=== PATIENT | female | born 1945 | race Caucasian/White ===

== ENCOUNTER 2017-09-25 05:46 | Observation (INO) ==
[2017-09-25] MEDS ORDERED: diphenhydrAMINE CAP 25 MG CAPSULE PO ONE (06:00)
[2017-09-25] MEDS ORDERED: ASPIRIN 325 MG TABLET PO ONE (06:00)
[2017-09-25] MEDS ORDERED: MAGNESIUM SULF RIDER 2 GM in PREMIX 1 EACH IV PRN ×2 (06:00→09:00)
[2017-09-25] MEDS ORDERED: DIAZEPAM 5 MG TABLET PO ONE (06:00)
[2017-09-25] MEDS ORDERED: POTASSIUM CHLORIDE RIDER 10 MEQ in PREMIX 1 EACH IV PRN (06:00)
[2017-09-25] MEDS ORDERED: diphenhydrAMINE CAP 25 MG CAPSULE ONE (06:56)
[2017-09-25] MEDS ORDERED: DIAZEPAM 5 MG TABLET ONE (06:56)
[2017-09-25] MEDS: SODIUM CHLORIDE 0.9% 1,000 ML IV SCH ×2 (06:59→12:49)
[2017-09-25] MEDS ORDERED: LIDOCAINE 1% 20 ML VIAL ONE (07:25)
[2017-09-25] MEDS ORDERED: MIDAZOLAM 2 MG/2 ML VIAL ONE (07:26)
[2017-09-25] MEDS ORDERED: MEPERIDINE 25 MG/1 ML VIAL ONE (07:26)
[2017-09-25] MEDS ORDERED: HEPARIN 5,000 UNIT/1 ML VIAL ONE (07:57)
[2017-09-25] MEDS ORDERED: DEXTROSE 50% 25 GM/50 ML VIAL IV PRN (09:00)
[2017-09-25] MEDS ORDERED: GLUCAGON 1 MG VIAL IM PRN (09:00)
[2017-09-25] MEDS ORDERED: ACETAMINOPHEN 325 MG TABLET PO PRN (09:00)
[2017-09-25] MEDS ORDERED: MAGNESIUM SULF RIDER 4 GM in PREMIX 1 EACH IV PRN (09:00)
[2017-09-25] MEDS ORDERED: ZALEPLON 5 MG CAPSULE PO PRN (09:00)
[2017-09-25] MEDS ORDERED: ACETAMINOPHEN/CODEINE 300-30 MG TABLET PO PRN (09:00)
[2017-09-25] MEDS ORDERED: SODIUM CHLORIDE 0.9% 1,000 ML IV PRN (09:26)
[2017-09-25] MEDS ORDERED: ONDANSETRON 4 MG/2 ML VIAL IV PRN (10:12)
[2017-09-25] MEDS ORDERED: guaiFENesin/DM ER 600-30 MG TABLET PO PRN (10:12)
[2017-09-25] MEDS ORDERED: BISACODYL 5 MG TABLET PO PRN (10:12)
[2017-09-25] MEDS ORDERED: diphenhydrAMINE CAP 25 MG CAPSULE PO PRN (10:12)
[2017-09-25] MEDS: INSULIN REGULAR 100 UNIT/ML SUBCUT SCH ×3 (12:50→20:20)
[2017-09-25] MEDS: MAGNESIUM CHLORIDE 64 MG TABLET PO SCH ×2 (15:34→20:19)
[2017-09-25] MEDS: CARVEDILOL 3.125 MG TABLET PO SCH (20:19)
[2017-09-25] MEDS: OMEGA 3 ACID ETHYL ESTERS 1 GM CAPSULE PO SCH (20:19)
[2017-09-25] MEDS: FAMOTIDINE 20 MG TABLET PO SCH (20:19)
[2017-09-25] MEDS ORDERED: traZODone 50 MG TABLET PO SCH (21:00)
[2017-09-26 07:12] LABS: Basophils # 0.1 10*3/uL (0.0-0.2); Basophils % 0.5 % (0.0-0.8); Eosinophils # 0.2 10*3/uL (0.0-0.87); Eosinophils % 1.9 % (0.00-10.9); Hematocrit 30.9 VOL% (35.7-47.0); Immature Granulocytes % 0.7 %; Immature Granulocytes Absolute 0.06 #; Lymphocytes # 1.3 10*3/uL (1.4-4.0); Lymphocytes % 14.6 % (21.3-54.2); Mean Corpuscular HGB Conc 32.4 GM/DL (32-36); Mean Corpuscular Hemoglobin 28 PG (27-34); Mean Corpuscular Volume 86.3 FL (87-102); Mean Platelet Volume 10.1 FL (9.6-12.0); Monocytes # 1.2 10*3/uL (0.11-0.8); Monocytes % 13.4 % (1.7-12.7); Neutrophils # 6.3 10*3/uL (1.4-7.4); Neutrophils % 68.9 % (38.7-73.9); Platelet Count 231 T/CUMM (130-400); Red Blood Count 3.58 MC/CUMM (3.8-5.5); White Blood Count 9.2 T/CUMM (4-12)
[2017-09-26 08:01] LABS: Alanine Aminotransferase 21 U/L (13-56); Albumin 3.4 G/DL (3.4-5.0); Alkaline Phosphatase 66 U/L (45-117); Aspartate Amino Transferase 18 U/L (0-37); Bilirubin,Total < 0.39 MG/DL (0.2-1.0); Blood Urea Nitrogen 26 MG/DL (7-18); Calcium 8.2 MG/DL (8.5-10.1); Glucose 167 MG/DL (74-106); Osmolality,Calculated 289.3 MOS/KG (273-304); Potassium 4.6 MMOL/L (3.5-5.1); Sodium 141 MMOL/L (136-145)
[2017-09-26] MEDS ORDERED: PANTOPRAZOLE 40 MG TABLET PO SCH (09:00)
[2017-09-26] MEDS ORDERED: SPIRONOLACTONE 25 MG TABLET PO SCH (09:00)
[2017-09-26] MEDS ORDERED: ASPIRIN EC 81 MG TABLET PO SCH (09:00)
[2017-09-26] MEDS ORDERED: GABAPENTIN 600 MG TABLET PO SCH (09:00)
[2017-09-26] MEDS ORDERED: AMIODARONE 200 MG TABLET PO SCH (09:00)
[2017-09-26] MEDS: INSULIN REGULAR 100 UNIT/ML SUBCUT SCH (09:08)
[2017-09-26] MEDS: CARVEDILOL 3.125 MG TABLET PO SCH (09:13)
[2017-09-26] MEDS: MAGNESIUM CHLORIDE 64 MG TABLET PO SCH (09:13)
[2017-09-26] MEDS: FAMOTIDINE 20 MG TABLET PO SCH (09:13)
[2017-09-26] MEDS: OMEGA 3 ACID ETHYL ESTERS 1 GM CAPSULE PO SCH (09:13)
[2017-09-26 12:23] VITALS: BP 185/79
[2017-09-27] MEDS ORDERED: PITAVASTATIN 2 MG TABLET PO SCH (09:00)
[2017-09-27] MEDS ORDERED: FERROUS SULFATE 325 MG TABLET PO SCH (09:00)
== END 2017-09-26 12:00 | disposition home or self-care (01) ==
LOC: N.CL 05:46 → N.4E 05:46 → N.CL 05:56 → N.4E 09:24
PROVIDERS: ADMIT Internal Medicine Cardiovascular Disease; ATTEND Internal Medicine Cardiovascular Disease

== ENCOUNTER 2018-11-23 09:11 | Observation (INO) ==
[2018-11-23] MEDS ORDERED: OXYMETAZOLINE 0.05% NASAL SPRAY 15 ML BOTTLE BOTH NARES STA (09:41)
[2018-11-23] MEDS ORDERED: SILVER NITRATE STICK 1 EACH TOP ONE (10:19)
[2018-11-23] MEDS ORDERED: LIDOCAINE 1%/EPI INJ 20 ML VIAL ONE (10:23)
[2018-11-23 10:36] LABS: Basophils % 0.6 % (0.0-0.8); Eosinophils # 0.1 10*3/uL (0.0-0.87); Eosinophils % 1.6 % (0.00-10.9); Hematocrit 27.6 VOL% (35.7-47.0); Hemoglobin 8.7 GM/DL (12.0-16.0); Immature Granulocytes % 0.7 %; Immature Granulocytes Absolute 0.05 #; Mean Corpuscular HGB Conc 31.5 GM/DL (32-36); Mean Corpuscular Hemoglobin 29 PG (27-34); Mean Corpuscular Volume 90.5 FL (87-102); Mean Platelet Volume 10.1 FL (9.6-12.0); Monocytes # 0.8 10*3/uL (0.11-0.8); Neutrophils % 72.1 % (38.7-73.9); Platelet Count 181 T/CUMM (130-400); Red Blood Count 3.05 MC/CUMM (3.8-5.5); Red Cell Distribution Width 13.8 % (9.3-17.3); White Blood Count 6.9 T/CUMM (4-12)
[2018-11-23 10:50] LABS: INR 0.9; Partial Thromboplastin Time 24.7 SECS (0-40)
[2018-11-23] MEDS ORDERED: SODIUM CHLORIDE 0.9% 1,000 ML IV PRN (12:31)
[2018-11-23] MEDS ORDERED: FUROSEMIDE 40 MG TABLET PO SCH (21:00)
[2018-11-23] MEDS ORDERED: traZODone 50 MG TABLET PO SCH (21:00)
[2018-11-23] MEDS ORDERED: TERAZOSIN 5 MG CAPSULE PO SCH (21:00)
[2018-11-23] MEDS: MAGNESIUM CHLORIDE 64 MG TABLET PO SCH (21:01)
[2018-11-23] MEDS: OMEGA 3 ACID ETHYL ESTERS 1 GM CAPSULE PO SCH (21:01)
[2018-11-23] MEDS: FAMOTIDINE 20 MG TABLET PO SCH (21:01)
[2018-11-23] MEDS: CARVEDILOL 3.125 MG TABLET PO SCH (21:01)
[2018-11-23] MEDS: SPIRONOLACTONE 25 MG TABLET PO SCH (21:02)
[2018-11-24 05:12] LABS: Basophils % 0.4 % (0.0-0.8); Eosinophils # 0.1 10*3/uL (0.0-0.87); Eosinophils % 1.1 % (0.00-10.9); Hematocrit 27.7 VOL% (35.7-47.0); Hemoglobin 8.8 GM/DL (12.0-16.0); Immature Granulocytes % 0.6 %; Immature Granulocytes Absolute 0.04 #; Lymphocytes # 0.8 10*3/uL (1.4-4.0); Lymphocytes % 11.8 % (21.3-54.2); Mean Corpuscular HGB Conc 31.8 GM/DL (32-36); Mean Corpuscular Hemoglobin 28 PG (27-34); Mean Corpuscular Volume 89.4 FL (87-102); Mean Platelet Volume 10.1 FL (9.6-12.0); Monocytes % 14.1 % (1.7-12.7); Neutrophils # 5.1 10*3/uL (1.4-7.4); Platelet Count 153 T/CUMM (130-400); Red Cell Distribution Width 14.9 % (9.3-17.3)
[2018-11-24 05:29] LABS: Calcium 8.3 MG/DL (8.5-10.1); Osmolality,Calculated 279.8 MOS/KG (273-304); Potassium 3.9 MMOL/L (3.5-5.1)
[2018-11-24 05:35] LABS: % Iron Saturation 16.8 % (18-50); Calcium 8.4 MG/DL (8.5-10.1); Ferritin 27.5 ng/ml (8-252); Osmolality,Calculated 281.7 MOS/KG (273-304); Potassium 3.9 MMOL/L (3.5-5.1)
[2018-11-24 05:52] LABS: Folate 15.7 NG/ML (5.4-24.0); Vitamin B12 403 PG/ML (211-911)
[2018-11-24 05:55] LABS: Platelet Estimate Adequate
[2018-11-24 05:56] LABS: Polychromasia Few
[2018-11-24] MEDS ORDERED: LEVOTHYROXINE 50 MCG TABLET PO SCH (07:00)
[2018-11-24 07:09] LABS: Sedimentation Rate-Westergren 66 MM/HR (0-30)
[2018-11-24] MEDS ORDERED: AMIODARONE 200 MG TABLET PO SCH (09:00)
[2018-11-24] MEDS ORDERED: FUROSEMIDE 40 MG TABLET PO SCH (09:00)
[2018-11-24] MEDS ORDERED: PANTOPRAZOLE 40 MG TABLET PO SCH (09:00)
[2018-11-24] MEDS ORDERED: GABAPENTIN 300 MG CAPSULE PO SCH (09:00)
[2018-11-24] MEDS ORDERED: sitaGLIPtin 100 MG TABLET PO SCH (09:00)
[2018-11-24] MEDS ORDERED: metOLazone 5 MG TABLET PO SCH (09:00)
[2018-11-24] MEDS ORDERED: FERROUS SULFATE 325 MG TABLET PO SCH ×2 (09:00→21:00)
[2018-11-24] MEDS: MAGNESIUM CHLORIDE 64 MG TABLET PO SCH (09:58)
[2018-11-24] MEDS: OMEGA 3 ACID ETHYL ESTERS 1 GM CAPSULE PO SCH (09:58)
[2018-11-24] MEDS: SPIRONOLACTONE 25 MG TABLET PO SCH (09:59)
[2018-11-24] MEDS: FAMOTIDINE 20 MG TABLET PO SCH (09:59)
[2018-11-24] MEDS: CARVEDILOL 3.125 MG TABLET PO SCH (09:59)
[2018-11-24] MEDS ORDERED: MUPIROCIN 2% OINT 22 GM TUBE TOP SCH (10:00)
[2018-11-24 12:48] VITALS: BP 116/67
[2018-11-25] MEDS ORDERED: PITAVASTATIN 2 MG TABLET PO SCH (09:00)
[2018-11-26 09:58] LABS: Hemoglobin A1 (Alkaline) 97.2 % (96.5-98.5); Hemoglobin A2 (Alkaline) 2.8 % (1.5-3.5)
== END 2018-11-24 12:19 | disposition home or self-care (01) ==
LOC: N.ED 09:11 → N.EDINP 09:11 → N.4E 15:50
PROVIDERS: ADMIT Hospitalist; ATTEND Hospitalist

== ENCOUNTER 2019-03-21 07:41 | Inpatient (IN) ==
[2019-03-21] MEDS ORDERED: FUROSEMIDE 100 MG/10 ML VIAL IV STA (07:59)
[2019-03-21 08:44] LABS: ABG Base Excess 6.6 MMOL/L (-2.5-2.5); ABG HCO3 30.4 MMOL/L (20-26); ABG Oxygen Saturation 97.3 % (95-100); ABG PCO2 40.1 MM HG (35-48); ABG PH 7.497 (7.35-7.45); ABG TCO2 31.6 MMOL/L (23-27)
[2019-03-21 08:52] LABS: Basophils % 0.3 % (0.0-0.8); Eosinophils # 0.1 10*3/uL (0.0-0.87); Eosinophils % 0.8 % (0.00-10.9); Hematocrit 23.9 VOL% (35.7-47.0); Immature Granulocytes Absolute 0.06 #; Lymphocytes # 0.8 10*3/uL (1.4-4.0); Lymphocytes % 12.7 % (21.3-54.2); Mean Corpuscular HGB Conc 33.5 GM/DL (32-36); Mean Platelet Volume 10.4 FL (9.6-12.0); Monocytes % 13.2 % (1.7-12.7); Platelet Count 181 T/CUMM (130-400); Red Blood Count 2.44 MC/CUMM (3.8-5.5); Red Cell Distribution Width 15.6 % (9.3-17.3); White Blood Count 6.1 T/CUMM (4-12)
[2019-03-21 09:00] LABS: Apearance,Urine CLEAR (Clear); Bacteria,Urine Occasional /HPF (Few); Bilirubin,Urine Negative (Negative); Blood, Urine Negative (Negative); Glucose,Urine (UA) Negative (Negative); Hyaline Casts,Urine 5 /LPF (0-3); Ketones,Urine Negative (Negative); Nitrite,Urine Negative (Negative); Protein,Urine Negative; RBC,Urine 2 /HPF (0-4); Squamous Epithelial Cell,Urine Occasional /HPF (0-10); Urine Color Colorless (Yellow); Urine Specific Gravity 1.004 (1.001-1.035); Urine Urobilinogen < 2.0 EU/DL (0.2-1.0); WBC,Urine 3 /HPF (0-6)
[2019-03-21 09:12] LABS: Albumin 3.7 G/DL (3.4-5.0); Bilirubin,Total 0.5 MG/DL (0.2-1.0); Calcium 7.9 MG/DL (8.5-10.1); Osmolality,Calculated 264.8 MOS/KG (273-304); Total Protein 6.7 G/DL (6.4-8.3)
[2019-03-21 10:51] LABS: % Iron Saturation 17.1 % (18-50); Ferritin 401.5 ng/ml (8-252)
[2019-03-21] MEDS ORDERED: ACETAMINOPHEN 325 MG TABLET PO PRN (11:26)
[2019-03-21] MEDS ORDERED: ONDANSETRON 4 MG/2 ML VIAL IV PRN (11:26)
[2019-03-21 13:53] LABS: Folate 15.2 NG/ML (5.4-24.0)
[2019-03-21] MEDS: MAGNESIUM CHLORIDE 64 MG TABLET PO SCH ×2 (15:22→21:50)
[2019-03-21] MEDS: FUROSEMIDE 40 MG/4 ML VIAL IV SCH (15:55)
[2019-03-21] MEDS: GABAPENTIN 300 MG CAPSULE PO SCH (21:49)
[2019-03-21] MEDS: OMEGA 3 ACID ETHYL ESTERS 1 GM CAPSULE PO SCH (21:49)
[2019-03-21] MEDS: MONTELUKAST 10 MG TABLET PO SCH (21:50)
[2019-03-21] MEDS: SPIRONOLACTONE 25 MG TABLET PO SCH (21:50)
[2019-03-21] MEDS: traZODone 50 MG TABLET PO SCH (21:50)
[2019-03-21] MEDS: CARVEDILOL 3.125 MG TABLET PO SCH ×2 (21:52→21:57)
[2019-03-21] MEDS: TERAZOSIN 5 MG CAPSULE PO SCH ×2 (21:52→21:56)
[2019-03-22 05:01] LABS: Basophils % 0.4 % (0.0-0.8); Eosinophils # 0.1 10*3/uL (0.0-0.87); Eosinophils % 1.8 % (0.00-10.9); Hemoglobin 7.1 GM/DL (12.0-16.0); Immature Granulocytes % 0.5 %; Immature Granulocytes Absolute 0.03 #; Mean Corpuscular HGB Conc 33.8 GM/DL (32-36); Mean Corpuscular Volume 97.7 FL (87-102); Mean Platelet Volume 10.4 FL (9.6-12.0); Monocytes % 15.6 % (1.7-12.7); Neutrophils % 64.7 % (38.7-73.9); Platelet Count 160 T/CUMM (130-400); Red Blood Count 2.15 MC/CUMM (3.8-5.5); Red Cell Distribution Width 15.5 % (9.3-17.3); White Blood Count 5.7 T/CUMM (4-12)
[2019-03-22 05:21] LABS: Calcium 7.8 MG/DL (8.5-10.1); Osmolality,Calculated 261.6 MOS/KG (273-304)
[2019-03-22 05:22] LABS: Hypochromasia 1+; Lymphocytes 20 % (20-55); Platelet Estimate Adequate; Segmented Neutrophils 68 % (50-85); Total Cells Counted 100
[2019-03-22] MEDS: LEVOTHYROXINE 50 MCG TABLET PO SCH (06:12)
[2019-03-22] MEDS: FERROUS SULFATE 325 MG TABLET PO SCH ×2 (06:12→11:54)
[2019-03-22] MEDS ORDERED: DEXTROSE 50% 25 GM/50 ML SYRINGE IV PRN (09:22)
[2019-03-22] MEDS ORDERED: GLUCAGON 1 MG VIAL IM PRN (09:22)
[2019-03-22] MEDS: CARVEDILOL 3.125 MG TABLET PO SCH ×2 (09:32→21:44)
[2019-03-22] MEDS: OMEGA 3 ACID ETHYL ESTERS 1 GM CAPSULE PO SCH ×2 (09:32→21:46)
[2019-03-22] MEDS: AMIODARONE 200 MG TABLET PO SCH (09:32)
[2019-03-22] MEDS: MAGNESIUM CHLORIDE 64 MG TABLET PO SCH ×3 (09:32→21:49)
[2019-03-22] MEDS: PANTOPRAZOLE 40 MG TABLET PO SCH ×2 (09:33→09:34)
[2019-03-22] MEDS: FUROSEMIDE 40 MG/4 ML VIAL IV SCH ×2 (09:33→16:24)
[2019-03-22] MEDS: SPIRONOLACTONE 25 MG TABLET PO SCH ×2 (09:33→21:44)
[2019-03-22] MEDS: ASPIRIN EC 81 MG TABLET PO SCH (09:33)
[2019-03-22] MEDS: metOLazone 2.5 MG TABLET PO SCH (09:33)
[2019-03-22] MEDS ORDERED: SODIUM CHLORIDE 0.9% 1,000 ML IV PRN (09:51)
[2019-03-22] MEDS ORDERED: FUROSEMIDE 40 MG/4 ML VIAL IV ONE (09:53)
[2019-03-22] MEDS: INSULIN REGULAR 100 UNIT/ML SUBCUT SCH ×3 (11:54→21:45)
[2019-03-22] MEDS ORDERED: POTASSIUM CHLORIDE 20 MEQ TABLET PO ONE (14:27)
[2019-03-22] MEDS: traZODone 50 MG TABLET PO SCH (21:45)
[2019-03-22] MEDS: TERAZOSIN 5 MG CAPSULE PO SCH (21:46)
[2019-03-22] MEDS: MONTELUKAST 10 MG TABLET PO SCH (21:47)
[2019-03-22] MEDS: GABAPENTIN 300 MG CAPSULE PO SCH (21:47)
[2019-03-22] MEDS: MAGNESIUM HYDROXIDE SUSP 30 ML UDCUP PO PRN (21:48)
[2019-03-23] MEDS: LEVOTHYROXINE 50 MCG TABLET PO SCH (06:25)
[2019-03-23] MEDS: FERROUS SULFATE 325 MG TABLET PO SCH ×2 (06:25→12:02)
[2019-03-23] MEDS: PITAVASTATIN 2 MG TABLET PO SCH (06:25)
[2019-03-23 08:18] LABS: Basophils % 0.7 % (0.0-0.8); Eosinophils # 0.1 10*3/uL (0.0-0.87); Eosinophils % 1.6 % (0.00-10.9); Immature Granulocytes % 0.7 %; Immature Granulocytes Absolute 0.04 #; Lymphocytes # 0.7 10*3/uL (1.4-4.0); Lymphocytes % 12.2 % (21.3-54.2); Mean Corpuscular HGB Conc 33.5 GM/DL (32-36); Mean Corpuscular Volume 97.7 FL (87-102); Monocytes % 13.3 % (1.7-12.7); Neutrophils % 71.5 % (38.7-73.9); Platelet Count 182 T/CUMM (130-400); Red Cell Distribution Width 16.2 % (9.3-17.3); White Blood Count 6.1 T/CUMM (4-12)
[2019-03-23 08:20] LABS: Red Blood Count 2.66 MC/CUMM (3.8-5.5)
[2019-03-23 08:21] LABS: Hemoglobin 8.7 GM/DL (12.0-16.0)
[2019-03-23] MEDS: INSULIN REGULAR 100 UNIT/ML SUBCUT SCH ×4 (09:05→20:40)
[2019-03-23] MEDS: MAGNESIUM CHLORIDE 64 MG TABLET PO SCH ×3 (09:06→20:39)
[2019-03-23] MEDS: POTASSIUM CHLORIDE 20 MEQ TABLET PO SCH (09:06)
[2019-03-23] MEDS: AMIODARONE 200 MG TABLET PO SCH (09:06)
[2019-03-23] MEDS: OMEGA 3 ACID ETHYL ESTERS 1 GM CAPSULE PO SCH ×2 (09:06→20:39)
[2019-03-23] MEDS: metOLazone 2.5 MG TABLET PO SCH (09:07)
[2019-03-23] MEDS: PANTOPRAZOLE 40 MG TABLET PO SCH ×2 (09:07→09:11)
[2019-03-23] MEDS: ASPIRIN EC 81 MG TABLET PO SCH (09:07)
[2019-03-23] MEDS: CARVEDILOL 3.125 MG TABLET PO SCH ×2 (09:07→20:39)
[2019-03-23] MEDS: FUROSEMIDE 40 MG/4 ML VIAL IV SCH ×3 (09:07→17:18)
[2019-03-23] MEDS: SPIRONOLACTONE 25 MG TABLET PO SCH (09:08)
[2019-03-23] MEDS ORDERED: SODIUM CHLORIDE 0.9% 1,000 ML IV PRN (11:23)
[2019-03-23] MEDS ORDERED: POTASSIUM CHLORIDE 20 MEQ TABLET PO ONE (11:42)
[2019-03-23] MEDS: GABAPENTIN 300 MG CAPSULE PO SCH (20:39)
[2019-03-23] MEDS: TERAZOSIN 5 MG CAPSULE PO SCH (20:39)
[2019-03-23] MEDS: MONTELUKAST 10 MG TABLET PO SCH (20:40)
[2019-03-23] MEDS: MAGNESIUM HYDROXIDE SUSP 30 ML UDCUP PO PRN (20:40)
[2019-03-23] MEDS: traZODone 50 MG TABLET PO SCH (20:40)
[2019-03-24 02:45] LABS: Basophils % 0.5 % (0.0-0.8); Eosinophils # 0.1 10*3/uL (0.0-0.87); Hematocrit 27.3 VOL% (35.7-47.0); Hemoglobin 9.2 GM/DL (12.0-16.0); Immature Granulocytes % 0.5 %; Immature Granulocytes Absolute 0.03 #; Lymphocytes # 1.2 10*3/uL (1.4-4.0); Lymphocytes % 17.6 % (21.3-54.2); Mean Corpuscular HGB Conc 33.7 GM/DL (32-36); Mean Corpuscular Volume 95.5 FL (87-102); Mean Platelet Volume 10.1 FL (9.6-12.0); Monocytes % 15.8 % (1.7-12.7); Neutrophils % 63.6 % (38.7-73.9); Platelet Count 178 T/CUMM (130-400); Red Blood Count 2.86 MC/CUMM (3.8-5.5); Red Cell Distribution Width 17.2 % (9.3-17.3); White Blood Count 6.6 T/CUMM (4-12)
[2019-03-24 04:42] LABS: Anisocytosis 1+; Band Neutrophils 1 % (0-10); Eosinophils 6 % (0-10); Lymphocytes 19 % (20-55); Macrocytosis 1+; Platelet Estimate Normal; Reactive Lymphocytes Few; Segmented Neutrophils 61 % (50-85); Total Cells Counted 100
[2019-03-24] MEDS: LEVOTHYROXINE 50 MCG TABLET PO SCH (06:12)
[2019-03-24] MEDS: FERROUS SULFATE 325 MG TABLET PO SCH ×2 (06:12→11:43)
[2019-03-24 07:55] LABS: Calcium 7.9 MG/DL (8.5-10.1); Osmolality,Calculated 264.2 MOS/KG (273-304)
[2019-03-24] MEDS: INSULIN REGULAR 100 UNIT/ML SUBCUT SCH ×4 (08:53→20:39)
[2019-03-24] MEDS: SPIRONOLACTONE 25 MG TABLET PO SCH (08:58)
[2019-03-24] MEDS: FUROSEMIDE 40 MG/4 ML VIAL IV SCH ×2 (08:58→16:05)
[2019-03-24] MEDS: OMEGA 3 ACID ETHYL ESTERS 1 GM CAPSULE PO SCH ×2 (08:59→20:39)
[2019-03-24] MEDS: PANTOPRAZOLE 40 MG TABLET PO SCH ×2 (08:59→09:00)
[2019-03-24] MEDS: CARVEDILOL 3.125 MG TABLET PO SCH ×2 (08:59→20:38)
[2019-03-24] MEDS: POTASSIUM CHLORIDE 20 MEQ TABLET PO SCH (08:59)
[2019-03-24] MEDS: ASPIRIN EC 81 MG TABLET PO SCH (08:59)
[2019-03-24] MEDS: MAGNESIUM CHLORIDE 64 MG TABLET PO SCH ×3 (09:02→20:39)
[2019-03-24] MEDS: AMIODARONE 200 MG TABLET PO SCH (09:03)
[2019-03-24] MEDS: metOLazone 2.5 MG TABLET PO SCH (09:03)
[2019-03-24] MEDS: TERAZOSIN 5 MG CAPSULE PO SCH (20:39)
[2019-03-24] MEDS: GABAPENTIN 300 MG CAPSULE PO SCH (20:39)
[2019-03-24] MEDS: traZODone 50 MG TABLET PO SCH (20:39)
[2019-03-24] MEDS: MONTELUKAST 10 MG TABLET PO SCH (20:39)
[2019-03-25 05:23] LABS: Basophils % 0.7 % (0.0-0.8); Eosinophils # 0.1 10*3/uL (0.0-0.87); Eosinophils % 2.1 % (0.00-10.9); Hematocrit 28.9 VOL% (35.7-47.0); Hemoglobin 9.3 GM/DL (12.0-16.0); Immature Granulocytes % 0.5 %; Immature Granulocytes Absolute 0.03 #; Lymphocytes # 1.1 10*3/uL (1.4-4.0); Lymphocytes % 19.3 % (21.3-54.2); Mean Corpuscular HGB Conc 32.2 GM/DL (32-36); Mean Platelet Volume 10.1 FL (9.6-12.0); Monocytes % 13.5 % (1.7-12.7); Neutrophils % 63.9 % (38.7-73.9); Platelet Count 183 T/CUMM (130-400); Red Blood Count 2.92 MC/CUMM (3.8-5.5); Red Cell Distribution Width 16.5 % (9.3-17.3); White Blood Count 5.8 T/CUMM (4-12)
[2019-03-25] MEDS: PITAVASTATIN 2 MG TABLET PO SCH (05:24)
[2019-03-25] MEDS: FERROUS SULFATE 325 MG TABLET PO SCH (05:24)
[2019-03-25] MEDS: LEVOTHYROXINE 50 MCG TABLET PO SCH (05:24)
[2019-03-25 05:39] LABS: Calcium 8.3 MG/DL (8.5-10.1); Osmolality,Calculated 270.8 MOS/KG (273-304)
[2019-03-25 07:56] VITALS: BP 149/51
[2019-03-25] MEDS: POTASSIUM CHLORIDE 20 MEQ TABLET PO SCH (09:35)
[2019-03-25] MEDS: CARVEDILOL 3.125 MG TABLET PO SCH (09:36)
[2019-03-25] MEDS: PANTOPRAZOLE 40 MG TABLET PO SCH (09:36)
[2019-03-25] MEDS: AMIODARONE 200 MG TABLET PO SCH (09:36)
[2019-03-25] MEDS: SPIRONOLACTONE 25 MG TABLET PO SCH (09:36)
[2019-03-25] MEDS: OMEGA 3 ACID ETHYL ESTERS 1 GM CAPSULE PO SCH (09:37)
[2019-03-25] MEDS: INSULIN REGULAR 100 UNIT/ML SUBCUT SCH (09:37)
[2019-03-25] MEDS: ASPIRIN EC 81 MG TABLET PO SCH (09:37)
[2019-03-25] MEDS: metOLazone 2.5 MG TABLET PO SCH (09:37)
[2019-03-25] MEDS: FUROSEMIDE 40 MG/4 ML VIAL IV SCH (09:38)
[2019-03-25] MEDS: MAGNESIUM CHLORIDE 64 MG TABLET PO SCH (09:41)
== END 2019-03-25 11:28 | disposition home health service (06) | DRG 291 ==
LOC: N.EDINP 07:41 → N.ED 07:41 → INTOOBSV 10:15 → OBSVTOIN 10:15 → N.EDINP 11:42 → N.4E 12:00 → SUATTDRO 03-22 13:53
PROVIDERS: ADMIT Hospitalist; ATTEND Internal Medicine

== ENCOUNTER 2019-04-19 10:39 | Inpatient (IN) ==
[2019-04-19] MEDS ORDERED: SODIUM CHLORIDE 0.9% 500 ML IV STA (11:08)
[2019-04-19] MEDS ORDERED: ONDANSETRON 4 MG/2 ML VIAL IV STA (11:08)
[2019-04-19] MEDS ORDERED: PANTOPRAZOLE 40 MG VIAL IV STA (11:08)
[2019-04-19 11:27] LABS: Basophils % 0.3 % (0.0-0.8); Eosinophils % 0.1 % (0.00-10.9); Hematocrit 28.3 VOL% (35.7-47.0); Immature Granulocytes % 0.7 %; Immature Granulocytes Absolute 0.07 #; Lymphocytes % 9.5 % (21.3-54.2); Mean Corpuscular HGB Conc 31.8 GM/DL (32-36); Mean Corpuscular Volume 99.3 FL (87-102); Mean Platelet Volume 10.6 FL (9.6-12.0); Monocytes % 16.2 % (1.7-12.7); Neutrophils % 73.2 % (38.7-73.9); Platelet Count 170 T/CUMM (130-400); Red Blood Count 2.85 MC/CUMM (3.8-5.5); Red Cell Distribution Width 13.4 % (9.3-17.3); White Blood Count 10.1 T/CUMM (4-12)
[2019-04-19 12:00] LABS: Eosinophils 2 % (0-10); Lymphocytes 8 % (20-55); Metamyelocytes 3 %; Myelocytes 2 %; Platelet Estimate Adequate; Polychromasia Slight; Segmented Neutrophils 76 % (50-85); Total Cells Counted 100
[2019-04-19 12:07] LABS: INR 0.9; PT Patient Result 10.3 SECS
[2019-04-19 12:31] LABS: Apearance,Urine CLEAR (Clear); Bacteria,Urine Occasional /HPF (Few); Bilirubin,Urine Negative (Negative); Blood, Urine Small mg/dL (Negative); Glucose,Urine (UA) Negative (Negative); Ketones,Urine Negative (Negative); Mucus,Urine Occasional /LPF (Occasional); Nitrite,Urine Negative (Negative); Protein,Urine Negative; RBC,Urine 3 /HPF (0-4); Squamous Epithelial Cell,Urine Occasional /HPF (0-10); Urine Color Straw (Yellow); Urine Specific Gravity 1.006 (1.001-1.035); Urine Urobilinogen < 2.0 EU/DL (0.2-1.0); WBC,Urine 21 /HPF (0-6)
[2019-04-19 12:31] LABS: Albumin 3.5 G/DL (3.4-5.0); Bilirubin,Total 0.6 MG/DL (0.2-1.0); CKMB % 0.4 %; Calcium 8.6 MG/DL (8.5-10.1); Osmolality,Calculated 277.9 MOS/KG (273-304); Total Protein 7.7 G/DL (6.4-8.3); Troponin I 0.107 NG/ML (0.00-0.045)
[2019-04-19] MEDS ORDERED: cefTRIAXone 1,000 MG in SODIUM CHLORIDE 0.9% 100 ML IV STA (13:29)
[2019-04-19] MEDS ORDERED: MAGNESIUM SULF RIDER 2 GM in PREMIX 1 EACH IV PRN (14:17)
[2019-04-19] MEDS ORDERED: DEXTROSE 50% 25 GM/50 ML VIAL IV PRN (14:17)
[2019-04-19] MEDS ORDERED: MAGNESIUM SULF RIDER 4 GM in PREMIX 1 EACH IV PRN (14:17)
[2019-04-19] MEDS ORDERED: GLUCAGON 1 MG VIAL IM PRN (14:17)
[2019-04-19 14:44] LABS: Free T4 (Free Thyroxine) 1.37 NG/DL (0.76-1.46); Thyroid Stimulating Hormone 1.5 uIU/ml (0.358-3.74)
[2019-04-19] MEDS ORDERED: CIPROFLOXACIN INJ 400 MG in PREMIX 1 EACH IV SCH (16:00)
[2019-04-19] MEDS: SODIUM CHLORIDE 0.45% 1,000 ML IV SCH (16:51)
[2019-04-19] MEDS: LACTULOSE 20 GM/30 ML UDCUP PO SCH ×2 (16:52→22:45)
[2019-04-19] MEDS: INSULIN REGULAR 100 UNIT/ML SUBCUT SCH ×2 (17:14→22:30)
[2019-04-19] MEDS: metroNIDAZOLE INJ 500 MG in PREMIX 1 EACH IV SCH ×2 (18:20→22:29)
[2019-04-19] MEDS: traZODone 50 MG TABLET PO SCH (22:28)
[2019-04-19] MEDS: MONTELUKAST 10 MG TABLET PO SCH (22:29)
[2019-04-19] MEDS: OMEGA 3 ACID ETHYL ESTERS 1 GM CAPSULE PO SCH (22:29)
[2019-04-19] MEDS: ONDANSETRON 4 MG/2 ML VIAL IV PRN (23:13)
[2019-04-20] MEDS: metroNIDAZOLE INJ 500 MG in PREMIX 1 EACH IV SCH ×2 (03:52→09:38)
[2019-04-20] MEDS: SODIUM CHLORIDE 0.45% 1,000 ML IV SCH (04:40)
[2019-04-20 06:17] LABS: Albumin 2.8 G/DL (3.4-5.0); Bilirubin,Total 0.7 MG/DL (0.2-1.0); Calcium 7.7 MG/DL (8.5-10.1); Osmolality,Calculated 279.7 MOS/KG (273-304); Total Protein 6.6 G/DL (6.4-8.3)
[2019-04-20] MEDS: LEVOTHYROXINE 50 MCG TABLET PO SCH (06:33)
[2019-04-20] MEDS: FERROUS SULFATE 325 MG TABLET PO SCH ×2 (06:33→12:46)
[2019-04-20 06:40] LABS: Basophils % 0.3 % (0.0-0.8); Eosinophils # 0.1 10*3/uL (0.0-0.87); Eosinophils % 1.3 % (0.00-10.9); Immature Granulocytes % 0.6 %; Immature Granulocytes Absolute 0.05 #; Lymphocytes # 0.6 10*3/uL (1.4-4.0); Mean Corpuscular HGB Conc 32.2 GM/DL (32-36); Mean Corpuscular Volume 98.3 FL (87-102); Mean Platelet Volume 10.2 FL (9.6-12.0); Monocytes % 19.2 % (1.7-12.7); Neutrophils % 71.6 % (38.7-73.9); Platelet Count 142 T/CUMM (130-400); Red Blood Count 2.34 MC/CUMM (3.8-5.5); Red Cell Distribution Width 13.4 % (9.3-17.3); White Blood Count 8.9 T/CUMM (4-12)
[2019-04-20] MEDS: LACTULOSE 20 GM/30 ML UDCUP PO SCH ×3 (06:42→23:34)
[2019-04-20 06:49] LABS: Hemoglobin 7.4 GM/DL (12.0-16.0)
[2019-04-20 07:17] LABS: Lymphocytes 4 % (20-55); Platelet Estimate Decreased; Segmented Neutrophils 80 % (50-85); Total Cells Counted 100
[2019-04-20] MEDS ORDERED: LINACLOTIDE 145 MCG CAPSULE PO SCH (07:30)
[2019-04-20] MEDS: INSULIN REGULAR 100 UNIT/ML SUBCUT SCH ×4 (09:35→21:42)
[2019-04-20] MEDS: OMEGA 3 ACID ETHYL ESTERS 1 GM CAPSULE PO SCH ×2 (09:40→21:20)
[2019-04-20] MEDS: AMIODARONE 200 MG TABLET PO SCH (09:40)
[2019-04-20] MEDS: PANTOPRAZOLE 40 MG TABLET PO SCH (09:40)
[2019-04-20] MEDS: ONDANSETRON 4 MG/2 ML VIAL IV PRN (12:06)
[2019-04-20] MEDS: MEROPENEM 500 MG in SODIUM CHLORIDE 0.9% 100 ML IV SCH ×2 (12:46→22:55)
[2019-04-20] MEDS ORDERED: SODIUM CHLORIDE 0.9% 1,000 ML IV PRN (15:01)
[2019-04-20] MEDS ORDERED: FUROSEMIDE 20 MG/2 ML VIAL IV PRN (15:01)
[2019-04-20] MEDS ORDERED: diphenhydrAMINE 50 MG/1 ML VIAL IV SCH (15:30)
[2019-04-20] MEDS ORDERED: ACETAMINOPHEN 325 MG TABLET PO SCH (15:30)
[2019-04-20] MEDS: LACTOBACILLUS ACIDOPHILUS/BULGARICUS CAPLET PO SCH ×2 (17:10→21:19)
[2019-04-20] MEDS: PROCHLORPERAZINE 10 MG TABLET PO SCH ×2 (17:11→21:19)
[2019-04-20] MEDS ORDERED: FUROSEMIDE 40 MG TABLET PO SCH (21:00)
[2019-04-20] MEDS: traZODone 50 MG TABLET PO SCH (21:19)
[2019-04-20] MEDS: MONTELUKAST 10 MG TABLET PO SCH (21:20)
[2019-04-21] MEDS: SODIUM CHLORIDE 0.45% 1,000 ML IV SCH (04:09)
[2019-04-21] MEDS: FERROUS SULFATE 325 MG TABLET PO SCH ×2 (05:08→11:44)
[2019-04-21] MEDS: LEVOTHYROXINE 50 MCG TABLET PO SCH (05:08)
[2019-04-21] MEDS: LACTULOSE 20 GM/30 ML UDCUP PO SCH ×3 (06:07→22:14)
[2019-04-21 06:13] LABS: Basophils % 0.1 % (0.0-0.8); Eosinophils # 0.1 10*3/uL (0.0-0.87); Eosinophils % 1.4 % (0.00-10.9); Hematocrit 27.8 VOL% (35.7-47.0); Hemoglobin 9.2 GM/DL (12.0-16.0); Immature Granulocytes % 0.4 %; Immature Granulocytes Absolute 0.03 #; Lymphocytes # 0.5 10*3/uL (1.4-4.0); Lymphocytes % 6.2 % (21.3-54.2); Mean Corpuscular HGB Conc 33.1 GM/DL (32-36); Mean Corpuscular Volume 91.4 FL (87-102); Mean Platelet Volume 10.2 FL (9.6-12.0); Monocytes % 19.1 % (1.7-12.7); Neutrophils % 72.8 % (38.7-73.9); Platelet Count 131 T/CUMM (130-400); Red Blood Count 3.04 MC/CUMM (3.8-5.5); Red Cell Distribution Width 16.1 % (9.3-17.3); White Blood Count 7.8 T/CUMM (4-12)
[2019-04-21 06:35] LABS: Albumin 2.7 G/DL (3.4-5.0); Band Neutrophils 1 % (0-10); Bilirubin,Total 1.4 MG/DL (0.2-1.0); Calcium 7.7 MG/DL (8.5-10.1); Eosinophils 7 % (0-10); Lymphocytes 6 % (20-55); Osmolality,Calculated 281.4 MOS/KG (273-304); Segmented Neutrophils 71 % (50-85); Total Cells Counted 100; Total Protein 6.4 G/DL (6.4-8.3)
[2019-04-21 06:37] LABS: Hypochromasia 1+; Microcytosis 1+
[2019-04-21 06:38] LABS: Platelet Estimate Adequate
[2019-04-21] MEDS: INSULIN REGULAR 100 UNIT/ML SUBCUT SCH ×4 (07:39→22:09)
[2019-04-21] MEDS: PROCHLORPERAZINE 10 MG TABLET PO SCH ×3 (10:24→21:26)
[2019-04-21] MEDS: LACTOBACILLUS ACIDOPHILUS/BULGARICUS CAPLET PO SCH ×2 (10:24→21:26)
[2019-04-21] MEDS: OMEGA 3 ACID ETHYL ESTERS 1 GM CAPSULE PO SCH ×2 (10:25→21:27)
[2019-04-21] MEDS: PANTOPRAZOLE 40 MG TABLET PO SCH (10:25)
[2019-04-21] MEDS: AMIODARONE 200 MG TABLET PO SCH (10:26)
[2019-04-21] MEDS: FUROSEMIDE 40 MG TABLET PO SCH ×2 (10:36→15:36)
[2019-04-21] MEDS: MEROPENEM 500 MG in SODIUM CHLORIDE 0.9% 100 ML IV SCH (11:36)
[2019-04-21] MEDS: POTASSIUM CHLORIDE 20 MEQ TABLET PO PRN ×2 (11:44→23:30)
[2019-04-21] MEDS: cefTRIAXone 2,000 MG in SYRINGE 1 EACH IV SCH (17:39)
[2019-04-21] MEDS: traZODone 50 MG TABLET PO SCH (21:26)
[2019-04-21] MEDS: POTASSIUM CHLORIDE 20 MEQ TABLET PO SCH (21:27)
[2019-04-21] MEDS: MONTELUKAST 10 MG TABLET PO SCH (21:27)
[2019-04-22] MEDS: POTASSIUM CHLORIDE 20 MEQ TABLET PO PRN (01:42)
[2019-04-22] MEDS: LEVOTHYROXINE 50 MCG TABLET PO SCH (05:54)
[2019-04-22] MEDS: FERROUS SULFATE 325 MG TABLET PO SCH ×2 (05:54→12:21)
[2019-04-22] MEDS: LACTULOSE 20 GM/30 ML UDCUP PO SCH (06:14)
[2019-04-22] MEDS: OMEGA 3 ACID ETHYL ESTERS 1 GM CAPSULE PO SCH ×2 (09:05→21:27)
[2019-04-22] MEDS: INSULIN REGULAR 100 UNIT/ML SUBCUT SCH ×4 (09:05→21:27)
[2019-04-22] MEDS: FUROSEMIDE 40 MG TABLET PO SCH ×3 (09:05→15:30)
[2019-04-22] MEDS: POTASSIUM CHLORIDE 20 MEQ TABLET PO SCH ×3 (09:06→21:27)
[2019-04-22] MEDS: PANTOPRAZOLE 40 MG TABLET PO SCH (09:06)
[2019-04-22] MEDS: AMIODARONE 200 MG TABLET PO SCH (09:06)
[2019-04-22] MEDS: LACTOBACILLUS ACIDOPHILUS/BULGARICUS CAPLET PO SCH ×2 (09:10→21:26)
[2019-04-22] MEDS: PROCHLORPERAZINE 10 MG TABLET PO SCH ×3 (10:21→21:26)
[2019-04-22] MEDS: cefTRIAXone 2,000 MG in SYRINGE 1 EACH IV SCH (18:00)
[2019-04-22] MEDS: traZODone 50 MG TABLET PO SCH (21:27)
[2019-04-22] MEDS: MONTELUKAST 10 MG TABLET PO SCH (21:28)
[2019-04-23] MEDS: POTASSIUM CHLORIDE 20 MEQ TABLET PO PRN ×2 (03:37→06:15)
[2019-04-23 04:32] LABS: Basophils % 0.3 % (0.0-0.8); Eosinophils # 0.2 10*3/uL (0.0-0.87); Eosinophils % 2.2 % (0.00-10.9); Hemoglobin 9.9 GM/DL (12.0-16.0); Immature Granulocytes % 0.4 %; Immature Granulocytes Absolute 0.03 #; Lymphocytes # 0.8 10*3/uL (1.4-4.0); Lymphocytes % 12.3 % (21.3-54.2); Mean Corpuscular Volume 90.4 FL (87-102); Mean Platelet Volume 10.2 FL (9.6-12.0); Monocytes % 17.8 % (1.7-12.7); Platelet Count 174 T/CUMM (130-400); Red Blood Count 3.32 MC/CUMM (3.8-5.5); Red Cell Distribution Width 15.2 % (9.3-17.3); White Blood Count 6.7 T/CUMM (4-12)
[2019-04-23 04:46] LABS: Calcium 8.5 MG/DL (8.5-10.1); Osmolality,Calculated 281.1 MOS/KG (273-304)
[2019-04-23 04:57] LABS: Eosinophils 5 % (0-10); Hypochromasia 1+; Lymphocytes 9 % (20-55); Platelet Estimate Adequate; Segmented Neutrophils 68 % (50-85); Total Cells Counted 100
[2019-04-23 04:58] LABS: Microcytosis 1+
[2019-04-23] MEDS: LEVOTHYROXINE 50 MCG TABLET PO SCH (06:15)
[2019-04-23] MEDS: FERROUS SULFATE 325 MG TABLET PO SCH ×2 (06:15→12:42)
[2019-04-23] MEDS: LACTOBACILLUS ACIDOPHILUS/BULGARICUS CAPLET PO SCH ×2 (08:37→20:55)
[2019-04-23] MEDS: FUROSEMIDE 40 MG TABLET PO SCH ×2 (08:37→15:43)
[2019-04-23] MEDS: OMEGA 3 ACID ETHYL ESTERS 1 GM CAPSULE PO SCH ×2 (08:38→20:56)
[2019-04-23] MEDS: INSULIN REGULAR 100 UNIT/ML SUBCUT SCH ×4 (08:38→20:55)
[2019-04-23] MEDS: POTASSIUM CHLORIDE 20 MEQ TABLET PO SCH ×3 (08:38→20:56)
[2019-04-23] MEDS: PROCHLORPERAZINE 10 MG TABLET PO SCH ×3 (08:38→21:00)
[2019-04-23] MEDS: AMIODARONE 200 MG TABLET PO SCH (08:39)
[2019-04-23] MEDS: PANTOPRAZOLE 40 MG TABLET PO SCH (08:39)
[2019-04-23] MEDS: amLODIPine 2.5 MG TABLET PO SCH (10:37)
[2019-04-23] MEDS: ENOXAPARIN 30 MG/0.3 ML SYRINGE SUBCUT SCH ×2 (15:42→15:46)
[2019-04-23] MEDS: hydrALAZINE 10 MG TABLET PO SCH ×2 (17:06→20:55)
[2019-04-23] MEDS: cefTRIAXone 2,000 MG in SYRINGE 1 EACH IV SCH (17:06)
[2019-04-23] MEDS: traZODone 50 MG TABLET PO SCH (20:55)
[2019-04-23] MEDS: MONTELUKAST 10 MG TABLET PO SCH (20:57)
[2019-04-24 05:12] LABS: Basophils % 0.5 % (0.0-0.8); Eosinophils # 0.2 10*3/uL (0.0-0.87); Eosinophils % 2.6 % (0.00-10.9); Hematocrit 30.5 VOL% (35.7-47.0); Immature Granulocytes % 0.7 %; Immature Granulocytes Absolute 0.04 #; Lymphocytes # 0.9 10*3/uL (1.4-4.0); Lymphocytes % 14.6 % (21.3-54.2); Mean Corpuscular HGB Conc 32.8 GM/DL (32-36); Mean Platelet Volume 10.4 FL (9.6-12.0); Monocytes % 14.1 % (1.7-12.7); Neutrophils % 67.5 % (38.7-73.9); Platelet Count 216 T/CUMM (130-400); Red Blood Count 3.35 MC/CUMM (3.8-5.5); Red Cell Distribution Width 14.8 % (9.3-17.3); White Blood Count 5.9 T/CUMM (4-12)
[2019-04-24] MEDS: LEVOTHYROXINE 50 MCG TABLET PO SCH (05:27)
[2019-04-24] MEDS: FERROUS SULFATE 325 MG TABLET PO SCH ×2 (05:27→12:19)
[2019-04-24 05:41] LABS: Calcium 8.8 MG/DL (8.5-10.1); Osmolality,Calculated 284.7 MOS/KG (273-304)
[2019-04-24] MEDS: INSULIN REGULAR 100 UNIT/ML SUBCUT SCH ×4 (07:40→21:12)
[2019-04-24] MEDS: LACTOBACILLUS ACIDOPHILUS/BULGARICUS CAPLET PO SCH ×2 (08:39→21:12)
[2019-04-24] MEDS: AMIODARONE 200 MG TABLET PO SCH (08:40)
[2019-04-24] MEDS: FUROSEMIDE 40 MG TABLET PO SCH ×2 (08:40→16:02)
[2019-04-24] MEDS: PROCHLORPERAZINE 10 MG TABLET PO SCH ×3 (08:41→22:45)
[2019-04-24] MEDS: hydrALAZINE 10 MG TABLET PO SCH ×2 (08:41→12:19)
[2019-04-24] MEDS: amLODIPine 2.5 MG TABLET PO SCH (08:42)
[2019-04-24] MEDS: PANTOPRAZOLE 40 MG TABLET PO SCH (08:42)
[2019-04-24] MEDS: POTASSIUM CHLORIDE 20 MEQ TABLET PO SCH ×2 (08:43→16:02)
[2019-04-24] MEDS: OMEGA 3 ACID ETHYL ESTERS 1 GM CAPSULE PO SCH ×2 (08:43→21:11)
[2019-04-24] MEDS ORDERED: amLODIPine 2.5 MG TABLET PO ONE (14:17)
[2019-04-24] MEDS: cefTRIAXone 2,000 MG in SYRINGE 1 EACH IV SCH (16:49)
[2019-04-24] MEDS: hydrALAZINE 25 MG TABLET PO SCH (21:11)
[2019-04-24] MEDS: MONTELUKAST 10 MG TABLET PO SCH (21:11)
[2019-04-24] MEDS: traZODone 50 MG TABLET PO SCH (21:11)
[2019-04-25 05:30] LABS: Basophils % 0.6 % (0.0-0.8); Eosinophils # 0.2 10*3/uL (0.0-0.87); Eosinophils % 2.9 % (0.00-10.9); Hematocrit 31.8 VOL% (35.7-47.0); Hemoglobin 10.2 GM/DL (12.0-16.0); Immature Granulocytes % 0.6 %; Immature Granulocytes Absolute 0.04 #; Lymphocytes % 14.9 % (21.3-54.2); Mean Corpuscular HGB Conc 32.1 GM/DL (32-36); Mean Corpuscular Volume 92.7 FL (87-102); Mean Platelet Volume 9.7 FL (9.6-12.0); Monocytes % 12.7 % (1.7-12.7); Neutrophils % 68.3 % (38.7-73.9); Platelet Count 227 T/CUMM (130-400); Red Blood Count 3.43 MC/CUMM (3.8-5.5); White Blood Count 6.5 T/CUMM (4-12)
[2019-04-25] MEDS: FERROUS SULFATE 325 MG TABLET PO SCH ×2 (05:31→13:05)
[2019-04-25] MEDS: LEVOTHYROXINE 50 MCG TABLET PO SCH (05:31)
[2019-04-25 06:03] LABS: Osmolality,Calculated 284.7 MOS/KG (273-304)
[2019-04-25] MEDS: OMEGA 3 ACID ETHYL ESTERS 1 GM CAPSULE PO SCH ×2 (09:29→21:36)
[2019-04-25] MEDS: amLODIPine 5 MG TABLET PO SCH (09:29)
[2019-04-25] MEDS: FUROSEMIDE 40 MG TABLET PO SCH ×2 (09:29→17:15)
[2019-04-25] MEDS: PANTOPRAZOLE 40 MG TABLET PO SCH (09:30)
[2019-04-25] MEDS: LACTOBACILLUS ACIDOPHILUS/BULGARICUS CAPLET PO SCH ×2 (09:30→21:35)
[2019-04-25] MEDS: AMIODARONE 200 MG TABLET PO SCH (09:30)
[2019-04-25] MEDS: PROCHLORPERAZINE 10 MG TABLET PO SCH ×3 (09:30→21:36)
[2019-04-25] MEDS: hydrALAZINE 25 MG TABLET PO SCH ×2 (09:30→21:35)
[2019-04-25] MEDS: SPIRONOLACTONE 25 MG TABLET PO SCH (09:30)
[2019-04-25] MEDS: INSULIN REGULAR 100 UNIT/ML SUBCUT SCH ×4 (09:33→21:36)
[2019-04-25] MEDS: cefTRIAXone 2,000 MG in SYRINGE 1 EACH IV SCH (17:15)
[2019-04-25] MEDS: traZODone 50 MG TABLET PO SCH (21:35)
[2019-04-25] MEDS: MONTELUKAST 10 MG TABLET PO SCH (21:36)
[2019-04-26 05:07] LABS: Basophils % 0.4 % (0.0-0.8); Eosinophils # 0.2 10*3/uL (0.0-0.87); Eosinophils % 2.1 % (0.00-10.9); Hematocrit 32.4 VOL% (35.7-47.0); Hemoglobin 10.5 GM/DL (12.0-16.0); Immature Granulocytes % 0.7 %; Immature Granulocytes Absolute 0.05 #; Lymphocytes # 1.1 10*3/uL (1.4-4.0); Lymphocytes % 15.2 % (21.3-54.2); Mean Corpuscular HGB Conc 32.4 GM/DL (32-36); Mean Corpuscular Volume 92.3 FL (87-102); Monocytes % 11.5 % (1.7-12.7); Neutrophils % 70.1 % (38.7-73.9); Platelet Count 256 T/CUMM (130-400); Red Blood Count 3.51 MC/CUMM (3.8-5.5); Red Cell Distribution Width 14.9 % (9.3-17.3); White Blood Count 7.5 T/CUMM (4-12)
[2019-04-26 05:26] LABS: Calcium 8.8 MG/DL (8.5-10.1); Calcium 8.9 MG/DL (8.5-10.1); Osmolality,Calculated 282.7 MOS/KG (273-304); Osmolality,Calculated 283.7 MOS/KG (273-304)
[2019-04-26] MEDS: FERROUS SULFATE 325 MG TABLET PO SCH ×2 (05:40→13:31)
[2019-04-26] MEDS: LEVOTHYROXINE 50 MCG TABLET PO SCH (05:40)
[2019-04-26] MEDS: INSULIN REGULAR 100 UNIT/ML SUBCUT SCH ×3 (08:34→13:39)
[2019-04-26] MEDS ORDERED: AMIODARONE 200 MG TABLET PO SCH (09:00)
[2019-04-26] MEDS: PROCHLORPERAZINE 10 MG TABLET PO SCH (09:06)
[2019-04-26] MEDS: LACTOBACILLUS ACIDOPHILUS/BULGARICUS CAPLET PO SCH (09:07)
[2019-04-26] MEDS: amLODIPine 5 MG TABLET PO SCH (09:07)
[2019-04-26] MEDS: FUROSEMIDE 40 MG TABLET PO SCH (09:08)
[2019-04-26] MEDS: SPIRONOLACTONE 25 MG TABLET PO SCH (09:08)
[2019-04-26] MEDS: hydrALAZINE 25 MG TABLET PO SCH (09:08)
[2019-04-26] MEDS: OMEGA 3 ACID ETHYL ESTERS 1 GM CAPSULE PO SCH (09:08)
[2019-04-26] MEDS: PANTOPRAZOLE 40 MG TABLET PO SCH (09:08)
[2019-04-26] MEDS ORDERED: MAGNESIUM SULF RIDER 2 GM in PREMIX 1 EACH IV ONE (11:24)
[2019-04-26 12:31] VITALS: BP 141/54
== END 2019-04-26 13:55 | disposition home health service (06) | DRG 871 ==
LOC: N.ED 10:39 → N.EDINP 10:39 → N.TELEN 15:18 → SUATTDRO 04-20 10:35
PROVIDERS: ADMIT Hospitalist; ATTEND Internal Medicine

== ENCOUNTER 2019-05-28 10:28 | Inpatient (IN) ==
[2019-05-28 11:17] LABS: Basophils % 0.3 % (0.0-0.8); Eosinophils % 0.2 % (0.00-10.9); Hemoglobin 8.8 GM/DL (12.0-16.0); Immature Granulocytes % 0.6 %; Immature Granulocytes Absolute 0.06 #; Lymphocytes # 0.7 10*3/uL (1.4-4.0); Lymphocytes % 7.9 % (21.3-54.2); Mean Corpuscular HGB Conc 32.6 GM/DL (32-36); Mean Corpuscular Volume 92.2 FL (87-102); Mean Platelet Volume 9.8 FL (9.6-12.0); Monocytes % 9.2 % (1.7-12.7); Neutrophils % 81.8 % (38.7-73.9); Platelet Count 279 T/CUMM (130-400); Red Blood Count 2.93 MC/CUMM (3.8-5.5); White Blood Count 9.4 T/CUMM (4-12)
[2019-05-28 11:25] LABS: INR 0.9; PT Patient Result 9.9 SECS; Partial Thromboplastin Time 27.2 SECS (0-40)
[2019-05-28] MEDS ORDERED: FUROSEMIDE 100 MG/10 ML VIAL IV STA (11:27)
[2019-05-28 11:43] LABS: Albumin 3.6 G/DL (3.4-5.0); Bilirubin,Total 0.4 MG/DL (0.2-1.0); Calcium 8.6 MG/DL (8.5-10.1); Osmolality,Calculated 258.1 MOS/KG (273-304); Total Protein 7.9 G/DL (6.4-8.3)
[2019-05-28] MEDS ORDERED: ACETAMINOPHEN 325 MG TABLET PO PRN (13:10)
[2019-05-28] MEDS ORDERED: ONDANSETRON 4 MG/2 ML VIAL IV PRN (13:10)
[2019-05-28] MEDS ORDERED: SULFAMETHOX/TRIMETHOPRIM 800-160 MG TABLET PO SCH (13:30)
[2019-05-28] MEDS ORDERED: GLUCAGON 1 MG VIAL IM PRN (14:17)
[2019-05-28] MEDS ORDERED: DEXTROSE 50% 25 GM/50 ML VIAL IV PRN (14:17)
[2019-05-28] MEDS: INSULIN REGULAR 100 UNIT/ML SUBCUT SCH ×2 (15:36→21:32)
[2019-05-28] MEDS: POTASSIUM CHLORIDE 20 MEQ/15 ML UDCUP PO SCH ×2 (15:38→21:18)
[2019-05-28] MEDS: SODIUM CHLORIDE 0.9% 1,000 ML IV SCH (15:44)
[2019-05-28 16:28] LABS: Calcium 8.4 MG/DL (8.5-10.1); Osmolality,Calculated 257.6 MOS/KG (273-304)
[2019-05-28] MEDS ORDERED: OXYMETAZOLINE 0.05% NASAL SPRAY 15 ML BOTTLE BOTH NARES PRN (16:30)
[2019-05-28 17:41] LABS: Hematocrit 22.9 VOL% (35.7-47.0); Hemoglobin 7.8 GM/DL (12.0-16.0)
[2019-05-28 18:59] LABS: Calcium 8.1 MG/DL (8.5-10.1); Osmolality,Calculated 260.6 MOS/KG (273-304)
[2019-05-28] MEDS: ALBUTEROL/IPRATROPIUM 3 ML NEB RESP TX SCH ×2 (19:36→23:47)
[2019-05-28] MEDS: traZODone 50 MG TABLET PO SCH (21:21)
[2019-05-28] MEDS: MAGNESIUM CHLORIDE 64 MG TABLET PO SCH (21:22)
[2019-05-28] MEDS: MONTELUKAST 10 MG TABLET PO SCH (21:23)
[2019-05-28] MEDS: GABAPENTIN 300 MG CAPSULE PO SCH (21:23)
[2019-05-28] MEDS: hydrALAZINE 25 MG TABLET PO SCH (21:23)
[2019-05-28] MEDS: OMEGA 3 ACID ETHYL ESTERS 1 GM CAPSULE PO SCH (21:23)
[2019-05-28 23:41] LABS: Hematocrit 21.5 VOL% (35.7-47.0); Hemoglobin 7.1 GM/DL (12.0-16.0)
[2019-05-29 00:01] LABS: Calcium 7.8 MG/DL (8.5-10.1); Osmolality,Calculated 259.5 MOS/KG (273-304)
[2019-05-29 03:19] LABS: Calcium 7.6 MG/DL (8.5-10.1); Osmolality,Calculated 259.5 MOS/KG (273-304)
[2019-05-29] MEDS: ALBUTEROL/IPRATROPIUM 3 ML NEB RESP TX SCH ×6 (03:59→23:47)
[2019-05-29] MEDS: SODIUM CHLORIDE 0.9% 1,000 ML IV SCH ×2 (05:05→20:06)
[2019-05-29] MEDS: POTASSIUM CHLORIDE 20 MEQ/15 ML UDCUP PO SCH ×2 (05:11→09:03)
[2019-05-29 05:52] LABS: Basophils % 0.4 % (0.0-0.8); Eosinophils # 0.1 10*3/uL (0.0-0.87); Eosinophils % 1.6 % (0.00-10.9); Hematocrit 23.1 VOL% (35.7-47.0); Hemoglobin 7.6 GM/DL (12.0-16.0); Immature Granulocytes % 0.5 %; Immature Granulocytes Absolute 0.04 #; Lymphocytes # 0.9 10*3/uL (1.4-4.0); Lymphocytes % 11.9 % (21.3-54.2); Mean Corpuscular HGB Conc 32.9 GM/DL (32-36); Mean Corpuscular Volume 93.1 FL (87-102); Mean Platelet Volume 9.9 FL (9.6-12.0); Monocytes % 12.7 % (1.7-12.7); Neutrophils % 72.9 % (38.7-73.9); Platelet Count 214 T/CUMM (130-400); Red Blood Count 2.48 MC/CUMM (3.8-5.5); Red Cell Distribution Width 15.1 % (9.3-17.3); White Blood Count 7.9 T/CUMM (4-12)
[2019-05-29 06:05] LABS: Calcium 8.4 MG/DL (8.5-10.1); Osmolality,Calculated 257.5 MOS/KG (273-304)
[2019-05-29] MEDS: LEVOTHYROXINE 50 MCG TABLET PO SCH (06:14)
[2019-05-29] MEDS: FERROUS SULFATE 325 MG TABLET PO SCH ×2 (06:14→12:19)
[2019-05-29] MEDS: INSULIN GLARGINE 100 UNIT/ML SUBCUT SCH (06:14)
[2019-05-29 07:44] LABS: Calcium 8.1 MG/DL (8.5-10.1); Osmolality,Calculated 260.5 MOS/KG (273-304)
[2019-05-29] MEDS: hydrALAZINE 25 MG TABLET PO SCH ×2 (09:03→20:40)
[2019-05-29] MEDS: MAGNESIUM CHLORIDE 64 MG TABLET PO SCH ×3 (09:03→20:40)
[2019-05-29] MEDS: INSULIN REGULAR 100 UNIT/ML SUBCUT SCH ×4 (09:03→20:40)
[2019-05-29] MEDS: amLODIPine 5 MG TABLET PO SCH (09:03)
[2019-05-29] MEDS: AMIODARONE 200 MG TABLET PO SCH (09:03)
[2019-05-29] MEDS: OMEGA 3 ACID ETHYL ESTERS 1 GM CAPSULE PO SCH ×2 (09:03→20:40)
[2019-05-29] MEDS: PANTOPRAZOLE 40 MG TABLET PO SCH (09:04)
[2019-05-29 10:48] LABS: Hematocrit 24.9 VOL% (35.7-47.0); Hemoglobin 8.1 GM/DL (12.0-16.0)
[2019-05-29 11:09] LABS: Calcium 8.3 MG/DL (8.5-10.1); Osmolality,Calculated 259.6 MOS/KG (273-304)
[2019-05-29] MEDS: GABAPENTIN 300 MG CAPSULE PO SCH (20:40)
[2019-05-29] MEDS: traZODone 50 MG TABLET PO SCH (20:40)
[2019-05-29] MEDS: MONTELUKAST 10 MG TABLET PO SCH (20:40)
[2019-05-30] MEDS: ALBUTEROL/IPRATROPIUM 3 ML NEB RESP TX SCH ×6 (03:25→23:20)
[2019-05-30 05:27] LABS: Basophils % 0.3 % (0.0-0.8); Eosinophils # 0.2 10*3/uL (0.0-0.87); Eosinophils % 2.4 % (0.00-10.9); Hematocrit 22.6 VOL% (35.7-47.0); Hemoglobin 7.2 GM/DL (12.0-16.0); Immature Granulocytes % 0.5 %; Immature Granulocytes Absolute 0.04 #; Lymphocytes # 0.7 10*3/uL (1.4-4.0); Lymphocytes % 8.4 % (21.3-54.2); Mean Corpuscular HGB Conc 31.9 GM/DL (32-36); Mean Corpuscular Volume 94.2 FL (87-102); Mean Platelet Volume 10.6 FL (9.6-12.0); Monocytes % 13.3 % (1.7-12.7); Neutrophils % 75.1 % (38.7-73.9); Platelet Count 218 T/CUMM (130-400); Red Cell Distribution Width 15.1 % (9.3-17.3); White Blood Count 8.8 T/CUMM (4-12)
[2019-05-30 05:35] LABS: Calcium 7.7 MG/DL (8.5-10.1); Osmolality,Calculated 260.1 MOS/KG (273-304)
[2019-05-30] MEDS: INSULIN GLARGINE 100 UNIT/ML SUBCUT SCH (06:46)
[2019-05-30] MEDS: LEVOTHYROXINE 50 MCG TABLET PO SCH (06:47)
[2019-05-30] MEDS: FERROUS SULFATE 325 MG TABLET PO SCH ×2 (06:47→12:30)
[2019-05-30] MEDS ORDERED: SODIUM CHLORIDE 0.9% 1,000 ML IV PRN (08:35)
[2019-05-30] MEDS: PITAVASTATIN 2 MG TABLET PO SCH (09:18)
[2019-05-30] MEDS: hydrALAZINE 25 MG TABLET PO SCH ×2 (09:18→21:48)
[2019-05-30] MEDS: OMEGA 3 ACID ETHYL ESTERS 1 GM CAPSULE PO SCH ×2 (09:18→21:23)
[2019-05-30] MEDS: SODIUM CHLORIDE 0.9% 1,000 ML IV SCH ×2 (09:19→22:40)
[2019-05-30] MEDS: AMIODARONE 200 MG TABLET PO SCH (09:19)
[2019-05-30] MEDS: PANTOPRAZOLE 40 MG TABLET PO SCH (09:19)
[2019-05-30] MEDS: amLODIPine 5 MG TABLET PO SCH (09:19)
[2019-05-30] MEDS: MAGNESIUM CHLORIDE 64 MG TABLET PO SCH ×3 (09:19→21:23)
[2019-05-30] MEDS: INSULIN REGULAR 100 UNIT/ML SUBCUT SCH ×4 (10:31→21:26)
[2019-05-30] MEDS: traZODone 50 MG TABLET PO SCH (21:22)
[2019-05-30] MEDS: MONTELUKAST 10 MG TABLET PO SCH (21:22)
[2019-05-30] MEDS: GABAPENTIN 300 MG CAPSULE PO SCH (21:22)
[2019-05-30 22:55] LABS: Hematocrit 30.4 VOL% (35.7-47.0); Hemoglobin 9.5 GM/DL (12.0-16.0)
[2019-05-31] MEDS: ALBUTEROL/IPRATROPIUM 3 ML NEB RESP TX SCH ×6 (03:40→23:34)
[2019-05-31 04:54] LABS: Basophils # 0.1 10*3/uL (0.0-0.2); Basophils % 0.4 % (0.0-0.8); Eosinophils # 0.2 10*3/uL (0.0-0.87); Eosinophils % 1.7 % (0.00-10.9); Hematocrit 29.9 VOL% (35.7-47.0); Hemoglobin 9.5 GM/DL (12.0-16.0); Immature Granulocytes Absolute 0.11 #; Lymphocytes # 0.9 10*3/uL (1.4-4.0); Lymphocytes % 7.6 % (21.3-54.2); Mean Corpuscular HGB Conc 31.8 GM/DL (32-36); Mean Corpuscular Volume 93.4 FL (87-102); Mean Platelet Volume 10.2 FL (9.6-12.0); Monocytes % 14.2 % (1.7-12.7); Neutrophils % 75.1 % (38.7-73.9); Platelet Count 201 T/CUMM (130-400); Red Cell Distribution Width 15.9 % (9.3-17.3); White Blood Count 11.6 T/CUMM (4-12)
[2019-05-31 05:28] LABS: Calcium 8.1 MG/DL (8.5-10.1); Osmolality,Calculated 265.8 MOS/KG (273-304)
[2019-05-31] MEDS: FERROUS SULFATE 325 MG TABLET PO SCH ×2 (06:30→13:17)
[2019-05-31] MEDS: LEVOTHYROXINE 50 MCG TABLET PO SCH (06:30)
[2019-05-31] MEDS: INSULIN GLARGINE 100 UNIT/ML SUBCUT SCH (06:30)
[2019-05-31] MEDS: INSULIN REGULAR 100 UNIT/ML SUBCUT SCH ×4 (07:42→22:03)
[2019-05-31] MEDS: PANTOPRAZOLE 40 MG TABLET PO SCH (09:37)
[2019-05-31] MEDS: hydrALAZINE 25 MG TABLET PO SCH ×2 (09:37→23:29)
[2019-05-31] MEDS: amLODIPine 5 MG TABLET PO SCH (09:37)
[2019-05-31] MEDS: OMEGA 3 ACID ETHYL ESTERS 1 GM CAPSULE PO SCH ×2 (09:38→22:03)
[2019-05-31] MEDS: AMIODARONE 200 MG TABLET PO SCH (09:38)
[2019-05-31] MEDS: MAGNESIUM CHLORIDE 64 MG TABLET PO SCH ×3 (09:46→22:02)
[2019-05-31] MEDS ORDERED: FUROSEMIDE 40 MG/4 ML VIAL IV ONE (12:00)
[2019-05-31] MEDS: FUROSEMIDE 40 MG TABLET PO SCH (17:05)
[2019-05-31] MEDS: GABAPENTIN 300 MG CAPSULE PO SCH (22:03)
[2019-05-31] MEDS: traZODone 50 MG TABLET PO SCH (22:03)
[2019-05-31] MEDS: MONTELUKAST 10 MG TABLET PO SCH (23:30)
[2019-06-01] MEDS: ALBUTEROL/IPRATROPIUM 3 ML NEB RESP TX SCH ×6 (02:41→23:50)
[2019-06-01] MEDS: LEVOTHYROXINE 50 MCG TABLET PO SCH (05:46)
[2019-06-01] MEDS: PITAVASTATIN 2 MG TABLET PO SCH (05:46)
[2019-06-01] MEDS: INSULIN GLARGINE 100 UNIT/ML SUBCUT SCH (05:47)
[2019-06-01] MEDS: FERROUS SULFATE 325 MG TABLET PO SCH ×2 (05:47→12:45)
[2019-06-01 06:03] LABS: Basophils % 0.5 % (0.0-0.8); Eosinophils # 0.2 10*3/uL (0.0-0.87); Eosinophils % 2.9 % (0.00-10.9); Hematocrit 27.9 VOL% (35.7-47.0); Hemoglobin 8.9 GM/DL (12.0-16.0); Immature Granulocytes % 0.8 %; Immature Granulocytes Absolute 0.06 #; Lymphocytes # 0.8 10*3/uL (1.4-4.0); Mean Corpuscular HGB Conc 31.9 GM/DL (32-36); Mean Corpuscular Volume 94.3 FL (87-102); Mean Platelet Volume 9.5 FL (9.6-12.0); Monocytes % 13.3 % (1.7-12.7); Neutrophils % 71.5 % (38.7-73.9); Platelet Count 205 T/CUMM (130-400); Red Blood Count 2.96 MC/CUMM (3.8-5.5); Red Cell Distribution Width 15.8 % (9.3-17.3); White Blood Count 7.7 T/CUMM (4-12)
[2019-06-01 06:32] LABS: Calcium 7.7 MG/DL (8.5-10.1); Osmolality,Calculated 275.1 MOS/KG (273-304)
[2019-06-01] MEDS: INSULIN REGULAR 100 UNIT/ML SUBCUT SCH ×4 (08:22→22:16)
[2019-06-01] MEDS: amLODIPine 5 MG TABLET PO SCH (09:49)
[2019-06-01] MEDS: FUROSEMIDE 40 MG TABLET PO SCH ×2 (09:49→16:46)
[2019-06-01] MEDS: ASPIRIN EC 81 MG TABLET PO SCH (09:49)
[2019-06-01] MEDS: PANTOPRAZOLE 40 MG TABLET PO SCH (09:49)
[2019-06-01] MEDS: MAGNESIUM CHLORIDE 64 MG TABLET PO SCH ×3 (09:49→20:31)
[2019-06-01] MEDS: OMEGA 3 ACID ETHYL ESTERS 1 GM CAPSULE PO SCH ×2 (09:49→20:31)
[2019-06-01] MEDS: AMIODARONE 200 MG TABLET PO SCH (09:49)
[2019-06-01] MEDS: hydrALAZINE 25 MG TABLET PO SCH ×2 (09:49→20:31)
[2019-06-01] MEDS: SPIRONOLACTONE 25 MG TABLET PO SCH (09:49)
[2019-06-01] MEDS: SODIUM CHLORIDE 0.9% 1,000 ML IV SCH (09:50)
[2019-06-01] MEDS ORDERED: SODIUM CHLORIDE 0.9% 1,000 ML IV PRN (13:35)
[2019-06-01] MEDS ORDERED: MAGNESIUM HYDROXIDE SUSP 30 ML UDCUP PO PRN (18:10)
[2019-06-01] MEDS: MONTELUKAST 10 MG TABLET PO SCH (20:31)
[2019-06-01] MEDS: traZODone 50 MG TABLET PO SCH (20:31)
[2019-06-01] MEDS: GABAPENTIN 300 MG CAPSULE PO SCH (20:31)
[2019-06-02 02:50] LABS: Basophils % 0.5 % (0.0-0.8); Eosinophils # 0.3 10*3/uL (0.0-0.87); Eosinophils % 3.3 % (0.00-10.9); Hematocrit 29.5 VOL% (35.7-47.0); Hemoglobin 9.5 GM/DL (12.0-16.0); Immature Granulocytes % 0.5 %; Immature Granulocytes Absolute 0.04 #; Lymphocytes # 0.9 10*3/uL (1.4-4.0); Lymphocytes % 11.2 % (21.3-54.2); Mean Corpuscular HGB Conc 32.2 GM/DL (32-36); Mean Corpuscular Volume 92.2 FL (87-102); Mean Platelet Volume 9.4 FL (9.6-12.0); Monocytes % 15.9 % (1.7-12.7); Neutrophils % 68.6 % (38.7-73.9); Platelet Count 217 T/CUMM (130-400); Red Cell Distribution Width 16.4 % (9.3-17.3); White Blood Count 7.6 T/CUMM (4-12)
[2019-06-02 03:03] LABS: Calcium 8.1 MG/DL (8.5-10.1); Osmolality,Calculated 280.8 MOS/KG (273-304)
[2019-06-02 03:05] LABS: Osmolality,Calculated 281.7 MOS/KG (273-304)
[2019-06-02] MEDS: ALBUTEROL/IPRATROPIUM 3 ML NEB RESP TX SCH ×3 (03:41→11:20)
[2019-06-02 04:30] LABS: Anisocytosis 1+; Eosinophils 5 % (0-10); Lymphocytes 13 % (20-55); Platelet Estimate Adequate; Segmented Neutrophils 66 % (50-85); Total Cells Counted 100
[2019-06-02] MEDS: LEVOTHYROXINE 50 MCG TABLET PO SCH (05:04)
[2019-06-02] MEDS: FERROUS SULFATE 325 MG TABLET PO SCH (05:04)
[2019-06-02] MEDS: INSULIN GLARGINE 100 UNIT/ML SUBCUT SCH (05:09)
[2019-06-02] MEDS: INSULIN REGULAR 100 UNIT/ML SUBCUT SCH ×2 (07:45→11:48)
[2019-06-02] MEDS: PANTOPRAZOLE 40 MG TABLET PO SCH (09:37)
[2019-06-02] MEDS: MAGNESIUM CHLORIDE 64 MG TABLET PO SCH (09:37)
[2019-06-02] MEDS: FUROSEMIDE 40 MG TABLET PO SCH (09:37)
[2019-06-02] MEDS: AMIODARONE 200 MG TABLET PO SCH (09:37)
[2019-06-02] MEDS: SPIRONOLACTONE 25 MG TABLET PO SCH (09:37)
[2019-06-02] MEDS: hydrALAZINE 25 MG TABLET PO SCH (09:38)
[2019-06-02] MEDS: ASPIRIN EC 81 MG TABLET PO SCH (09:38)
[2019-06-02] MEDS: OMEGA 3 ACID ETHYL ESTERS 1 GM CAPSULE PO SCH (09:38)
[2019-06-02] MEDS: amLODIPine 5 MG TABLET PO SCH (09:38)
[2019-06-02 16:14] VITALS: BP 147/72
== END 2019-06-02 11:48 | disposition home health service (06) | DRG 641 ==
LOC: N.ED 10:28 → N.EDINP 13:10 → SUATTDRO 13:10 → N.EDINP 15:04 → N.2E 15:16
PROVIDERS: ADMIT Internal Medicine Cardiovascular Disease; ATTEND Emergency Medicine

== ENCOUNTER 2019-06-28 07:28 | Inpatient (IN) ==
[2019-06-28 08:38] LABS: Basophils % 0.3 % (0.0-0.8); Eosinophils # 0.1 10*3/uL (0.0-0.87); Eosinophils % 0.8 % (0.00-10.9); Hematocrit 23.9 VOL% (35.7-47.0); Immature Granulocytes % 0.9 %; Immature Granulocytes Absolute 0.08 #; Lymphocytes # 0.8 10*3/uL (1.4-4.0); Lymphocytes % 9.1 % (21.3-54.2); Mean Corpuscular HGB Conc 33.5 GM/DL (32-36); Mean Corpuscular Volume 89.5 FL (87-102); Mean Platelet Volume 10.5 FL (9.6-12.0); Monocytes % 9.1 % (1.7-12.7); Neutrophils % 79.8 % (38.7-73.9); Platelet Count 216 T/CUMM (130-400); Red Blood Count 2.67 MC/CUMM (3.8-5.5); Red Cell Distribution Width 15.4 % (9.3-17.3); White Blood Count 8.6 T/CUMM (4-12)
[2019-06-28 08:46] LABS: INR 0.9; PT Patient Result 9.5 SECS (9.6-12.2); Partial Thromboplastin Time 23.8 SECS (20.8-36.0)
[2019-06-28 09:03] LABS: Albumin 3.6 G/DL (3.4-5.0); Bilirubin,Total 0.5 MG/DL (0.2-1.0); CKMB % 1.9 %; Calcium 8.7 MG/DL (8.5-10.1); Osmolality,Calculated 260.6 MOS/KG (273-304); Total Protein 7.6 G/DL (6.4-8.3); Troponin I 0.034 NG/ML (0.00-0.045)
[2019-06-28] MEDS ORDERED: ONDANSETRON 4 MG/2 ML VIAL IV PRN (10:18)
[2019-06-28] MEDS ORDERED: ACETAMINOPHEN 325 MG TABLET PO PRN (10:18)
[2019-06-28] MEDS ORDERED: OXYMETAZOLINE 0.05% NASAL SPRAY 15 ML BOTTLE BOTH NARES PRN (10:20)
[2019-06-28 10:39] LABS: % Iron Saturation 9.8 % (18-50); Ferritin 53.8 ng/ml (8-252)
[2019-06-28 10:45] LABS: Folate 14.5 NG/ML (5.4-24.0)
[2019-06-28] MEDS ORDERED: SODIUM CHLORIDE 0.9% 1,000 ML IV PRN (10:58)
[2019-06-28] MEDS ORDERED: GLUCAGON 1 MG VIAL IM PRN (13:01)
[2019-06-28] MEDS ORDERED: DEXTROSE 50% 25 GM/50 ML VIAL IV PRN (13:01)
[2019-06-28 14:47] LABS: Troponin I 0.051 NG/ML (0.00-0.045)
[2019-06-28] MEDS: PANTOPRAZOLE 40 MG TABLET PO SCH (16:45)
[2019-06-28] MEDS: FERROUS SULFATE 325 MG TABLET PO SCH (16:45)
[2019-06-28] MEDS: MAGNESIUM CHLORIDE 64 MG TABLET PO SCH ×2 (16:45→20:46)
[2019-06-28] MEDS: INSULIN LISPRO 100 UNIT/ML SUBCUT SCH ×2 (16:46→21:03)
[2019-06-28 17:45] LABS: Troponin I 0.052 NG/ML (0.00-0.045)
[2019-06-28 19:49] LABS: Hematocrit 26.1 VOL% (35.7-47.0); Hemoglobin 8.7 GM/DL (12.0-16.0)
[2019-06-28] MEDS: OMEGA 3 ACID ETHYL ESTERS 1 GM CAPSULE PO SCH (20:47)
[2019-06-28] MEDS: hydrALAZINE 25 MG TABLET PO SCH (20:47)
[2019-06-28] MEDS: FAMOTIDINE 20 MG TABLET PO SCH (20:47)
[2019-06-28] MEDS ORDERED: traZODone 50 MG TABLET PO SCH (21:00)
[2019-06-28] MEDS ORDERED: MONTELUKAST 10 MG TABLET PO SCH (21:00)
[2019-06-28] MEDS ORDERED: GABAPENTIN 300 MG CAPSULE PO SCH (21:00)
[2019-06-29 06:01] LABS: Basophils % 0.2 % (0.0-0.8); Eosinophils # 0.2 10*3/uL (0.0-0.87); Hematocrit 24.8 VOL% (35.7-47.0); Hemoglobin 8.3 GM/DL (12.0-16.0); Immature Granulocytes % 0.7 %; Immature Granulocytes Absolute 0.06 #; Lymphocytes # 0.9 10*3/uL (1.4-4.0); Lymphocytes % 10.8 % (21.3-54.2); Mean Corpuscular HGB Conc 33.5 GM/DL (32-36); Mean Corpuscular Volume 90.8 FL (87-102); Mean Platelet Volume 10.7 FL (9.6-12.0); Monocytes % 12.2 % (1.7-12.7); Neutrophils % 74.1 % (38.7-73.9); Platelet Count 179 T/CUMM (130-400); Red Blood Count 2.73 MC/CUMM (3.8-5.5); Red Cell Distribution Width 15.4 % (9.3-17.3); White Blood Count 8.3 T/CUMM (4-12)
[2019-06-29] MEDS ORDERED: LEVOTHYROXINE 50 MCG TABLET PO SCH (06:30)
[2019-06-29 06:55] LABS: Albumin 2.9 G/DL (3.4-5.0); Bilirubin,Total 0.5 MG/DL (0.2-1.0); Calcium 8.2 MG/DL (8.5-10.1); Osmolality,Calculated 269.8 MOS/KG (273-304); Risk Ratio 2.1; Thyroid Stimulating Hormone 3.11 uIU/ml (0.358-3.74); Total Protein 6.5 G/DL (6.4-8.3); VLDL CHOLESTEROL 16.4 MG/DL
[2019-06-29] MEDS ORDERED: INSULIN GLARGINE 100 UNIT/ML SUBCUT SCH (09:00)
[2019-06-29] MEDS ORDERED: amLODIPine 5 MG TABLET PO SCH (09:00)
[2019-06-29] MEDS ORDERED: PITAVASTATIN 2 MG TABLET PO SCH (09:00)
[2019-06-29] MEDS ORDERED: AMIODARONE 200 MG TABLET PO SCH (09:00)
[2019-06-29] MEDS ORDERED: ASPIRIN EC 81 MG TABLET PO SCH (09:00)
[2019-06-29] MEDS: OMEGA 3 ACID ETHYL ESTERS 1 GM CAPSULE PO SCH (09:19)
[2019-06-29] MEDS: FAMOTIDINE 20 MG TABLET PO SCH (09:20)
[2019-06-29] MEDS: PANTOPRAZOLE 40 MG TABLET PO SCH (09:20)
[2019-06-29] MEDS: INSULIN LISPRO 100 UNIT/ML SUBCUT SCH ×2 (09:20→12:13)
[2019-06-29] MEDS: hydrALAZINE 25 MG TABLET PO SCH (09:20)
[2019-06-29] MEDS: FERROUS SULFATE 325 MG TABLET PO SCH (09:20)
[2019-06-29] MEDS: POTASSIUM CHLORIDE 20 MEQ TABLET PO PRN ×2 (09:20→12:12)
[2019-06-29] MEDS: MAGNESIUM CHLORIDE 64 MG TABLET PO SCH (09:21)
[2019-06-29] MEDS ORDERED: SODIUM CHLORIDE 0.9% 1,000 ML IV PRN (10:17)
[2019-06-29] MEDS ORDERED: ALBUTEROL/IPRATROPIUM 3 ML NEB RESP TX PRN (10:30)
[2019-06-29 13:10] VITALS: BP 134/53
[2019-06-29 15:24] LABS: Hematocrit 30.1 VOL% (35.7-47.0)
[2019-06-29 15:25] LABS: Hemoglobin 10.1 GM/DL (12.0-16.0)
== END 2019-06-29 15:20 | disposition home or self-care (01) | DRG 812 ==
LOC: N.ED 07:28 → N.EDINP 10:18 → SUATTDRO 10:18 → N.2E 12:26
PROVIDERS: ADMIT Family Medicine; ATTEND Internal Medicine

== ENCOUNTER 2019-07-11 08:21 | Observation (INO) ==
[2019-07-11 09:10] LABS: Basophils % 0.4 % (0.0-0.8); Eosinophils # 0.1 10*3/uL (0.0-0.87); Eosinophils % 1.2 % (0.00-10.9); Hematocrit 20.8 VOL% (35.7-47.0); Hemoglobin 6.7 GM/DL (12.0-16.0); Immature Granulocytes % 0.8 %; Immature Granulocytes Absolute 0.07 #; Lymphocytes # 1.4 10*3/uL (1.4-4.0); Lymphocytes % 15.1 % (21.3-54.2); Mean Corpuscular HGB Conc 32.2 GM/DL (32-36); Mean Corpuscular Volume 95.9 FL (87-102); Mean Platelet Volume 10.2 FL (9.6-12.0); Neutrophils % 73.5 % (38.7-73.9); Platelet Count 256 T/CUMM (130-400); Red Blood Count 2.17 MC/CUMM (3.8-5.5); Red Cell Distribution Width 15.4 % (9.3-17.3); White Blood Count 9.3 T/CUMM (4-12)
[2019-07-11] MEDS ORDERED: NITROGLYCERIN SL 0.4 MG TABLET SL PRN (09:11)
[2019-07-11] MEDS ORDERED: ASPIRIN 325 MG TABLET PO STA (09:11)
[2019-07-11 09:13] LABS: INR 0.9; Partial Thromboplastin Time 22.2 SECS (20.8-36.0)
[2019-07-11 09:58] LABS: Albumin 3.3 G/DL (3.4-5.0); Bilirubin,Total 0.4 MG/DL (0.2-1.0); Calcium 8.7 MG/DL (8.5-10.1); Total Protein 6.7 G/DL (6.4-8.3)
[2019-07-11] MEDS ORDERED: SODIUM CHLORIDE 0.9% 1,000 ML IV PRN ×2 (10:02→20:33)
[2019-07-11] MEDS ORDERED: OXYMETAZOLINE 0.05% NASAL SPRAY 15 ML BOTTLE BOTH NARES PRN (13:36)
[2019-07-11] MEDS ORDERED: FUROSEMIDE 20 MG/2 ML VIAL IV ONE (15:00)
[2019-07-11] MEDS: MAGNESIUM CHLORIDE 64 MG TABLET PO SCH ×2 (15:00→20:36)
[2019-07-11] MEDS: FAMOTIDINE 20 MG TABLET PO SCH ×2 (15:10→20:36)
[2019-07-11] MEDS: POTASSIUM CHLORIDE 20 MEQ TABLET PO SCH ×2 (15:10→20:36)
[2019-07-11] MEDS: amLODIPine 5 MG TABLET PO SCH (15:10)
[2019-07-11] MEDS: FUROSEMIDE 40 MG TABLET PO SCH (17:36)
[2019-07-11 18:00] LABS: Hematocrit 24.7 VOL% (35.7-47.0)
[2019-07-11 18:01] LABS: Hemoglobin 8.1 GM/DL (12.0-16.0)
[2019-07-11] MEDS: hydrALAZINE 25 MG TABLET PO SCH (20:35)
[2019-07-11] MEDS: traZODone 50 MG TABLET PO SCH (20:36)
[2019-07-11] MEDS: MONTELUKAST 10 MG TABLET PO SCH (20:36)
[2019-07-11] MEDS: PITAVASTATIN 2 MG TABLET PO SCH (20:36)
[2019-07-12] MEDS ORDERED: FERROUS SULFATE 325 MG TABLET PO SCH (06:00)
[2019-07-12 06:12] LABS: Basophils % 0.5 % (0.0-0.8); Eosinophils # 0.2 10*3/uL (0.0-0.87); Eosinophils % 2.5 % (0.00-10.9); Hematocrit 23.2 VOL% (35.7-47.0); Hemoglobin 7.6 GM/DL (12.0-16.0); Immature Granulocytes % 0.7 %; Immature Granulocytes Absolute 0.05 #; Lymphocytes # 1.2 10*3/uL (1.4-4.0); Lymphocytes % 15.7 % (21.3-54.2); Mean Corpuscular HGB Conc 32.8 GM/DL (32-36); Mean Corpuscular Volume 95.1 FL (87-102); Monocytes % 11.8 % (1.7-12.7); Neutrophils % 68.8 % (38.7-73.9); Platelet Count 203 T/CUMM (130-400); Red Blood Count 2.44 MC/CUMM (3.8-5.5); Red Cell Distribution Width 15.7 % (9.3-17.3); White Blood Count 7.5 T/CUMM (4-12)
[2019-07-12 06:31] LABS: Calcium 8.2 MG/DL (8.5-10.1); Osmolality,Calculated 296.4 MOS/KG (273-304)
[2019-07-12] MEDS: LEVOTHYROXINE 50 MCG TABLET PO SCH (06:35)
[2019-07-12] MEDS ORDERED: SODIUM CHLORIDE 0.9% 1,000 ML IV PRN (07:21)
[2019-07-12] MEDS ORDERED: MAGNESIUM SULF RIDER 4 GM in PREMIX 1 EACH IV PRN (07:22)
[2019-07-12] MEDS ORDERED: MAGNESIUM SULF RIDER 2 GM in PREMIX 1 EACH IV PRN (07:22)
[2019-07-12] MEDS ORDERED: FUROSEMIDE 20 MG/2 ML VIAL IV PRN (07:23)
[2019-07-12] MEDS: metOLazone 2.5 MG TABLET PO SCH (08:15)
[2019-07-12] MEDS: amLODIPine 5 MG TABLET PO SCH (08:15)
[2019-07-12] MEDS: AMIODARONE 200 MG TABLET PO SCH (08:15)
[2019-07-12] MEDS: FUROSEMIDE 40 MG TABLET PO SCH ×2 (08:15→16:44)
[2019-07-12] MEDS: hydrALAZINE 25 MG TABLET PO SCH ×2 (08:15→21:17)
[2019-07-12] MEDS: PANTOPRAZOLE 40 MG TABLET PO SCH (08:16)
[2019-07-12] MEDS: MAGNESIUM CHLORIDE 64 MG TABLET PO SCH (08:16)
[2019-07-12] MEDS: FAMOTIDINE 20 MG TABLET PO SCH ×2 (08:16→21:17)
[2019-07-12] MEDS: POTASSIUM CHLORIDE 20 MEQ TABLET PO SCH ×3 (08:16→21:18)
[2019-07-12] MEDS: ASPIRIN EC 81 MG TABLET PO SCH (08:17)
[2019-07-12] MEDS: SPIRONOLACTONE 50 MG TABLET PO SCH (12:31)
[2019-07-12] MEDS: INSULIN LISPRO 100 UNIT/ML SUBCUT SCH ×3 (12:31→21:18)
[2019-07-12] MEDS ORDERED: MAGNESIUM HYDROXIDE SUSP 30 ML UDCUP PO PRN (14:03)
[2019-07-12] MEDS: POTASSIUM CHLORIDE RIDER 10 MEQ in PREMIX 1 EACH IV PRN ×3 (15:12→21:18)
[2019-07-12 16:34] LABS: Hematocrit 30.7 VOL% (35.7-47.0)
[2019-07-12 16:37] LABS: Hemoglobin 10.3 GM/DL (12.0-16.0)
[2019-07-12] MEDS: traZODone 50 MG TABLET PO SCH (21:17)
[2019-07-12] MEDS: MONTELUKAST 10 MG TABLET PO SCH (21:17)
[2019-07-12] MEDS: PITAVASTATIN 2 MG TABLET PO SCH (21:18)
[2019-07-13 04:58] LABS: Basophils # 0.1 10*3/uL (0.0-0.2); Basophils % 0.8 % (0.0-0.8); Eosinophils # 0.3 10*3/uL (0.0-0.87); Eosinophils % 3.1 % (0.00-10.9); Hematocrit 28.8 VOL% (35.7-47.0); Hemoglobin 9.4 GM/DL (12.0-16.0); Immature Granulocytes % 0.8 %; Immature Granulocytes Absolute 0.06 #; Lymphocytes % 12.1 % (21.3-54.2); Mean Corpuscular HGB Conc 32.6 GM/DL (32-36); Mean Corpuscular Volume 93.5 FL (87-102); Mean Platelet Volume 10.2 FL (9.6-12.0); Monocytes % 13.5 % (1.7-12.7); Neutrophils % 69.7 % (38.7-73.9); Platelet Count 211 T/CUMM (130-400); Red Blood Count 3.08 MC/CUMM (3.8-5.5); Red Cell Distribution Width 15.7 % (9.3-17.3)
[2019-07-13 06:05] LABS: Albumin 2.7 G/DL (3.4-5.0); Bilirubin,Total 0.9 MG/DL (0.2-1.0); Calcium 7.9 MG/DL (8.5-10.1); Osmolality,Calculated 294.3 MOS/KG (273-304)
[2019-07-13] MEDS: LEVOTHYROXINE 50 MCG TABLET PO SCH (06:19)
[2019-07-13 08:43] VITALS: BP 153/59
[2019-07-13] MEDS: MAGNESIUM CHLORIDE 64 MG TABLET PO SCH (09:15)
[2019-07-13] MEDS: POTASSIUM CHLORIDE 20 MEQ TABLET PO SCH (09:15)
[2019-07-13] MEDS: ASPIRIN EC 81 MG TABLET PO SCH (09:15)
[2019-07-13] MEDS: INSULIN LISPRO 100 UNIT/ML SUBCUT SCH (09:15)
[2019-07-13] MEDS: PANTOPRAZOLE 40 MG TABLET PO SCH (09:15)
[2019-07-13] MEDS: metOLazone 2.5 MG TABLET PO SCH (09:15)
[2019-07-13] MEDS: FUROSEMIDE 40 MG TABLET PO SCH (09:16)
[2019-07-13] MEDS: SPIRONOLACTONE 50 MG TABLET PO SCH (09:16)
[2019-07-13] MEDS: amLODIPine 5 MG TABLET PO SCH (09:16)
[2019-07-13] MEDS: hydrALAZINE 25 MG TABLET PO SCH (09:16)
[2019-07-13] MEDS: AMIODARONE 200 MG TABLET PO SCH (09:16)
[2019-07-13] MEDS: FAMOTIDINE 20 MG TABLET PO SCH (09:16)
== END 2019-07-13 09:51 | disposition home or self-care (01) ==
LOC: N.ED 08:21 → N.EDINP 08:21 → N.2E 13:00
PROVIDERS: ADMIT Hospitalist; ATTEND Hospitalist

== ENCOUNTER 2021-05-09 11:21 | Inpatient (IN) ==
[2021-05-09 12:02] LABS: Basophils % 0.5 % (0.0-0.8); Eosinophils # 0.1 10*3/uL (0.0-0.87); Eosinophils % 0.8 % (0.00-10.9); Hematocrit 20.1 VOL% (35.7-47.0); Hemoglobin 6.6 GM/DL (12.0-16.0); Immature Granulocytes % 1.4 %; Immature Granulocytes Absolute 0.11 #; Lymphocytes # 0.6 10*3/uL (1.4-4.0); Lymphocytes % 7.8 % (21.3-54.2); Mean Corpuscular HGB Conc 32.8 GM/DL (32-36); Monocytes % 8.3 % (1.7-12.7); NRBC # 0.02 10*3/uL; Neutrophils % 81.2 % (38.7-73.9); Platelet Count 247 T/CUMM (130-400); Red Blood Count 2.03 MC/CUMM (3.8-5.5); Red Cell Distribution Width 14.9 % (9.3-17.3); White Blood Count 7.9 T/CUMM (4-12)
[2021-05-09 12:13] LABS: INR 0.9; PT Patient Result 10.6 SECS (10.5-12.0); Partial Thromboplastin Time 22.4 SECS (23.9-33.8)
[2021-05-09 12:35] LABS: Bilirubin,Total 0.4 MG/DL (0.2-1.0); Calcium 7.3 MG/DL (8.5-10.1); Osmolality,Calculated 293.4 MOS/KG (273-304); Potassium 4.4 MMOL/L (3.5-5.1); Total Protein 5.9 G/DL (6.4-8.2)
[2021-05-09] MEDS ORDERED: SODIUM CHLORIDE 0.9% 1,000 ML IV PRN (12:42)
[2021-05-09] MEDS ORDERED: ONDANSETRON 4 MG/2 ML VIAL IV PRN (13:38)
[2021-05-09] MEDS ORDERED: GLUCAGON 1 MG VIAL IM PRN ×2 (13:38→13:53)
[2021-05-09] MEDS ORDERED: DEXTROSE 50% 25 GM/50 ML VIAL IV PRN ×2 (13:38→13:53)
[2021-05-09] MEDS ORDERED: FUROSEMIDE 40 MG/4 ML VIAL IV PRN (13:54)
[2021-05-09 14:09] LABS: % Iron Saturation 47.5 % (18-50); Ferritin 673.7 ng/ml (8-252)
[2021-05-09] MEDS: INSULIN LISPRO 100 UNIT/ML SUBCUT SCH (17:35)
[2021-05-09] MEDS: FUROSEMIDE 40 MG TABLET PO SCH (17:36)
[2021-05-09] MEDS: traZODone 50 MG TABLET PO SCH (21:02)
[2021-05-09] MEDS: hydrALAZINE 25 MG TABLET PO SCH (21:02)
[2021-05-09] MEDS: GABAPENTIN 300 MG CAPSULE PO SCH (21:02)
[2021-05-09] MEDS: MONTELUKAST 10 MG TABLET PO SCH (21:03)
[2021-05-09] MEDS: PANTOPRAZOLE 40 MG VIAL IV SCH (21:23)
[2021-05-09 22:23] LABS: Hematocrit 21.1 VOL% (35.7-47.0); Hemoglobin 7.1 GM/DL (12.0-16.0)
[2021-05-09 23:16] LABS: Folate 17.28 NG/ML (5.38-24.0)
[2021-05-10 01:58] LABS: Hematocrit 20.5 VOL% (35.7-47.0); Hemoglobin 6.9 GM/DL (12.0-16.0)
[2021-05-10] MEDS: INSULIN LISPRO 100 UNIT/ML SUBCUT SCH ×5 (03:46→23:18)
[2021-05-10 06:32] LABS: Basophils # 0.1 10*3/uL (0.0-0.2); Basophils % 0.6 % (0.0-0.8); Eosinophils # 0.2 10*3/uL (0.0-0.87); Hematocrit 21.6 VOL% (35.7-47.0); Hemoglobin 7.1 GM/DL (12.0-16.0); Immature Granulocytes % 2.1 %; Immature Granulocytes Absolute 0.17 #; Lymphocytes # 0.7 10*3/uL (1.4-4.0); Lymphocytes % 8.3 % (21.3-54.2); Mean Corpuscular HGB Conc 32.9 GM/DL (32-36); Mean Corpuscular Volume 94.7 FL (87-102); Mean Platelet Volume 9.9 FL (9.6-12.0); NRBC # 0.02 10*3/uL; Platelet Count 169 T/CUMM (130-400); Red Blood Count 2.28 MC/CUMM (3.8-5.5); Red Cell Distribution Width 17.2 % (9.3-17.3); White Blood Count 8.2 T/CUMM (4-12)
[2021-05-10 07:14] LABS: Calcium 7.3 MG/DL (8.5-10.1); Osmolality,Calculated 297.8 MOS/KG (273-304); Potassium 3.4 MMOL/L (3.5-5.1); Thyroid Stimulating Hormone 2.77 uIU/ml (0.358-3.74)
[2021-05-10] MEDS: LEVOTHYROXINE 50 MCG TABLET PO SCH (07:21)
[2021-05-10] MEDS: metOLazone 2.5 MG TABLET PO SCH (09:30)
[2021-05-10] MEDS: MAGNESIUM CHLORIDE 64 MG TABLET PO SCH (09:30)
[2021-05-10] MEDS: amLODIPine 5 MG TABLET PO SCH (09:30)
[2021-05-10] MEDS: SPIRONOLACTONE 50 MG TABLET PO SCH (09:30)
[2021-05-10] MEDS: AMIODARONE 200 MG TABLET PO SCH (09:30)
[2021-05-10] MEDS: hydrALAZINE 25 MG TABLET PO SCH ×2 (09:30→23:17)
[2021-05-10] MEDS: FUROSEMIDE 40 MG TABLET PO SCH ×2 (09:30→16:01)
[2021-05-10] MEDS: PANTOPRAZOLE 40 MG VIAL IV SCH ×2 (09:31→23:17)
[2021-05-10] MEDS ORDERED: BISACODYL 5 MG TABLET PO ONE (15:00)
[2021-05-10] MEDS ORDERED: POLYETHYLENE GLYCOL POWDER 255 GM BOTTLE PO ONE (18:00)
[2021-05-10] MEDS: traZODone 50 MG TABLET PO SCH (23:17)
[2021-05-10] MEDS: MONTELUKAST 10 MG TABLET PO SCH (23:17)
[2021-05-10] MEDS: GABAPENTIN 300 MG CAPSULE PO SCH (23:17)
[2021-05-11] MEDS ORDERED: POLYETHYLENE GLYCOL POWDER 255 GM BOTTLE PO ONE (05:00)
[2021-05-11 06:08] LABS: Basophils % 0.6 % (0.0-0.8); Eosinophils # 0.1 10*3/uL (0.0-0.87); Eosinophils % 1.8 % (0.00-10.9); Hemoglobin 7.5 GM/DL (12.0-16.0); Immature Granulocytes % 2.1 %; Immature Granulocytes Absolute 0.15 #; Lymphocytes # 0.8 10*3/uL (1.4-4.0); Mean Corpuscular HGB Conc 32.6 GM/DL (32-36); Mean Corpuscular Volume 95.8 FL (87-102); Mean Platelet Volume 9.8 FL (9.6-12.0); Monocytes % 15.8 % (1.7-12.7); NRBC # 0.03 10*3/uL; Neutrophils % 68.7 % (38.7-73.9); Platelet Count 198 T/CUMM (130-400); Red Cell Distribution Width 17.2 % (9.3-17.3); White Blood Count 7.1 T/CUMM (4-12)
[2021-05-11 06:31] LABS: Anisocytosis 2+; Eosinophils 4 % (0-10); Lymphocytes 13 % (20-55); Macrocytosis 1+; Metamyelocytes 1 %; Nucleated Red Blood Cells 3 (0-5); Ovalocytes Few; Platelet Estimate Normal; Polychromasia Slight; Segmented Neutrophils 67 % (50-85); Total Cells Counted 100
[2021-05-11] MEDS: SIMVASTATIN 20 MG TABLET PO SCH (06:42)
[2021-05-11] MEDS: LEVOTHYROXINE 50 MCG TABLET PO SCH (06:42)
[2021-05-11 06:52] LABS: Osmolality,Calculated 303.3 MOS/KG (273-304); Potassium 2.9 MMOL/L (3.5-5.1)
[2021-05-11] MEDS: POTASSIUM CHLORIDE RIDER 10 MEQ/100 ML PREMIX IV PRN ×2 (08:10→11:58)
[2021-05-11] MEDS: FUROSEMIDE 40 MG TABLET PO SCH ×2 (11:22→17:23)
[2021-05-11] MEDS: INSULIN LISPRO 100 UNIT/ML SUBCUT SCH ×4 (11:22→22:20)
[2021-05-11] MEDS: hydrALAZINE 25 MG TABLET PO SCH ×2 (12:40→22:14)
[2021-05-11] MEDS: SPIRONOLACTONE 50 MG TABLET PO SCH (12:40)
[2021-05-11] MEDS: amLODIPine 5 MG TABLET PO SCH (12:41)
[2021-05-11] MEDS: PANTOPRAZOLE 40 MG VIAL IV SCH ×2 (12:41→22:15)
[2021-05-11] MEDS: AMIODARONE 200 MG TABLET PO SCH (12:41)
[2021-05-11] MEDS: MAGNESIUM CHLORIDE 64 MG TABLET PO SCH (12:42)
[2021-05-11] MEDS: metOLazone 2.5 MG TABLET PO SCH (12:42)
[2021-05-11] MEDS: LACTATED RINGERS 1,000 ML IV SCH (14:24)
[2021-05-11] MEDS ORDERED: LIDOCAINE 2% 5 ML VIAL ONE (14:48)
[2021-05-11] MEDS ORDERED: propofoL 200 MG/20 ML VIAL IV ONE ×2 (14:48→15:09)
[2021-05-11] MEDS: GABAPENTIN 300 MG CAPSULE PO SCH (22:14)
[2021-05-11] MEDS: MONTELUKAST 10 MG TABLET PO SCH (22:14)
[2021-05-11] MEDS: traZODone 50 MG TABLET PO SCH (22:18)
[2021-05-12 05:14] LABS: Basophils % 0.6 % (0.0-0.8); Eosinophils # 0.2 10*3/uL (0.0-0.87); Hematocrit 21.2 VOL% (35.7-47.0); Hemoglobin 6.9 GM/DL (12.0-16.0); Immature Granulocytes % 1.3 %; Immature Granulocytes Absolute 0.07 #; Lymphocytes # 0.6 10*3/uL (1.4-4.0); Lymphocytes % 10.4 % (21.3-54.2); Mean Corpuscular HGB Conc 32.5 GM/DL (32-36); Mean Corpuscular Volume 97.7 FL (87-102); Neutrophils % 68.7 % (38.7-73.9); Platelet Count 186 T/CUMM (130-400); Red Blood Count 2.17 MC/CUMM (3.8-5.5); White Blood Count 5.4 T/CUMM (4-12)
[2021-05-12 05:41] LABS: Calcium 7.7 MG/DL (8.5-10.1); Osmolality,Calculated 299.1 MOS/KG (273-304)
[2021-05-12 05:43] LABS: Eosinophils 3 % (0-10); Hypochromasia 1+; Lymphocytes 12 % (20-55); Microcytosis 1+; Platelet Estimate Adequate; Segmented Neutrophils 75 % (50-85); Total Cells Counted 100
[2021-05-12] MEDS ORDERED: SODIUM CHLORIDE 0.9% 1,000 ML IV PRN (07:19)
[2021-05-12] MEDS: LEVOTHYROXINE 50 MCG TABLET PO SCH (07:24)
[2021-05-12] MEDS: INSULIN LISPRO 100 UNIT/ML SUBCUT SCH ×4 (08:24→22:00)
[2021-05-12] MEDS: MAGNESIUM CHLORIDE 64 MG TABLET PO SCH (09:14)
[2021-05-12] MEDS: hydrALAZINE 25 MG TABLET PO SCH ×2 (09:14→21:59)
[2021-05-12] MEDS: AMIODARONE 200 MG TABLET PO SCH (09:14)
[2021-05-12] MEDS: metOLazone 2.5 MG TABLET PO SCH (09:14)
[2021-05-12] MEDS: FUROSEMIDE 40 MG TABLET PO SCH ×2 (09:14→21:58)
[2021-05-12] MEDS: SPIRONOLACTONE 50 MG TABLET PO SCH (09:14)
[2021-05-12] MEDS: amLODIPine 5 MG TABLET PO SCH (09:15)
[2021-05-12] MEDS: POTASSIUM CHLORIDE 20 MEQ TABLET PO SCH ×2 (09:18→16:21)
[2021-05-12] MEDS: PANTOPRAZOLE 40 MG VIAL IV SCH ×2 (09:50→22:04)
[2021-05-12] MEDS ORDERED: POTASSIUM CHLORIDE 20 MEQ TABLET PO SCH (15:00)
[2021-05-12] MEDS: LACTATED RINGERS 1,000 ML IV SCH (16:22)
[2021-05-12] MEDS: MONTELUKAST 10 MG TABLET PO SCH (21:59)
[2021-05-12] MEDS: GABAPENTIN 300 MG CAPSULE PO SCH (21:59)
[2021-05-12] MEDS: traZODone 50 MG TABLET PO SCH (21:59)
[2021-05-13 06:14] LABS: Basophils % 0.7 % (0.0-0.8); Eosinophils # 0.2 10*3/uL (0.0-0.87); Eosinophils % 3.8 % (0.00-10.9); Hematocrit 28.2 VOL% (35.7-47.0); Hemoglobin 9.3 GM/DL (12.0-16.0); Immature Granulocytes Absolute 0.06 #; Lymphocytes # 0.8 10*3/uL (1.4-4.0); Lymphocytes % 12.9 % (21.3-54.2); Mean Corpuscular Volume 95.9 FL (87-102); Monocytes % 14.5 % (1.7-12.7); Neutrophils % 67.1 % (38.7-73.9); Platelet Count 205 T/CUMM (130-400); Red Blood Count 2.94 MC/CUMM (3.8-5.5); Red Cell Distribution Width 17.8 % (9.3-17.3); White Blood Count 6.1 T/CUMM (4-12)
[2021-05-13] MEDS: LEVOTHYROXINE 50 MCG TABLET PO SCH (06:31)
[2021-05-13] MEDS: SIMVASTATIN 20 MG TABLET PO SCH (06:31)
[2021-05-13 06:45] LABS: Osmolality,Calculated 290.5 MOS/KG (273-304); Potassium 3.9 MMOL/L (3.5-5.1)
[2021-05-13] MEDS: INSULIN LISPRO 100 UNIT/ML SUBCUT SCH (08:39)
[2021-05-13] MEDS: PANTOPRAZOLE 40 MG VIAL IV SCH (09:14)
[2021-05-13] MEDS: AMIODARONE 200 MG TABLET PO SCH (09:40)
[2021-05-13] MEDS: FUROSEMIDE 40 MG TABLET PO SCH (09:40)
[2021-05-13] MEDS: SPIRONOLACTONE 50 MG TABLET PO SCH (09:40)
[2021-05-13] MEDS: hydrALAZINE 25 MG TABLET PO SCH (09:40)
[2021-05-13] MEDS: MAGNESIUM CHLORIDE 64 MG TABLET PO SCH (09:41)
[2021-05-13] MEDS: metOLazone 2.5 MG TABLET PO SCH (09:41)
[2021-05-13] MEDS: amLODIPine 5 MG TABLET PO SCH (09:41)
[2021-05-13 12:24] VITALS: BP 150/43
== END 2021-05-13 13:22 | disposition home health service (06) | DRG 378 ==
LOC: N.ED 11:21 → N.EDINP 13:38 → SUATTDRO 13:38 → N.TELES 15:08
PROVIDERS: ADMIT Internal Medicine; ATTEND Internal Medicine

== ENCOUNTER 2021-11-21 03:27 | Inpatient (IN) ==
[2021-11-21 05:27] LABS: Basophils % 0.4 % (0.0-0.8); Eosinophils # 0.1 10*3/uL (0.0-0.87); Hematocrit 25.4 VOL% (35.7-47.0); Hemoglobin 8.6 GM/DL (12.0-16.0); Immature Granulocytes % 0.7 %; Immature Granulocytes Absolute 0.05 #; Lymphocytes # 0.6 10*3/uL (1.4-4.0); Lymphocytes % 8.5 % (21.3-54.2); Mean Corpuscular HGB Conc 33.9 GM/DL (32-36); Mean Corpuscular Volume 95.1 FL (87-102); Mean Platelet Volume 9.5 FL (9.6-12.0); Monocytes % 13.1 % (1.7-12.7); Neutrophils % 76.3 % (38.7-73.9); Platelet Count 280 T/CUMM (130-400); Red Blood Count 2.67 MC/CUMM (3.8-5.5); Red Cell Distribution Width 15.4 % (9.3-17.3); White Blood Count 6.7 T/CUMM (4-12)
[2021-11-21 05:34] LABS: Albumin 3.1 G/DL (3.4-5.0); Bilirubin,Total 0.6 MG/DL (0.20-1.00); Calcium 7.5 MG/DL (8.5-10.1); Osmolality,Calculated 257.8 MOS/KG (273-304); Potassium 4.9 MMOL/L (3.5-5.1); Total Protein 6.7 G/DL (6.4-8.2)
[2021-11-21] MEDS ORDERED: SODIUM CHLORIDE 0.9% 1,000 ML IV STA (05:58)
[2021-11-21 06:12] LABS: Amorphous Crystals,Urine Occasional /HPF (Few); Bacteria,Urine Few /HPF (Few); Bilirubin,Urine Negative (Negative); Blood, Urine Negative (Negative); Glucose,Urine (UA) Negative (Negative); Hyaline Casts,Urine 7 /LPF (0-3); Ketones,Urine Negative (Negative); Nitrite,Urine Negative (Negative); Protein,Urine Negative; RBC,Urine 1 /HPF (0-4); Squamous Epithelial Cell,Urine Occasional /HPF (0-10); Urine Appearance CLEAR (Clear); Urine Color Yellow (Yellow); Urine Specific Gravity 1.009 (1.001-1.035); Urine Urobilinogen < 2.0 EU/DL (<2.0)
[2021-11-21] MEDS ORDERED: GLUCAGON 1 MG VIAL IM PRN (08:46)
[2021-11-21] MEDS ORDERED: ACETAMINOPHEN 325 MG TABLET PO PRN (08:46)
[2021-11-21] MEDS ORDERED: DOCUSATE SODIUM 100 MG CAPSULE PO PRN (08:46)
[2021-11-21] MEDS ORDERED: ONDANSETRON 4 MG/2 ML VIAL IV PRN (08:46)
[2021-11-21] MEDS ORDERED: DEXTROSE 10% 250 ML BAG IV PRN (08:56)
[2021-11-21] MEDS: HEPARIN 5,000 UNIT/1 ML VIAL SUBCUT SCH ×2 (11:11→22:21)
[2021-11-21] MEDS: SODIUM CHLORIDE 0.9% 1,000 ML IV SCH (11:18)
[2021-11-21] MEDS: INSULIN REGULAR 100 UNIT/ML SUBCUT SCH ×3 (11:45→22:21)
[2021-11-21] MEDS: MONTELUKAST 10 MG TABLET PO SCH (22:21)
[2021-11-21] MEDS: hydrALAZINE 25 MG TABLET PO SCH (22:21)
[2021-11-21] MEDS: OMEGA 3 ACID ETHYL ESTERS 1 GM CAPSULE PO SCH (23:23)
[2021-11-22] MEDS: SODIUM CHLORIDE 0.9% 1,000 ML IV SCH ×2 (02:30→19:49)
[2021-11-22 05:02] LABS: Basophils % 0.4 % (0.0-0.8); Eosinophils # 0.2 10*3/uL (0.0-0.87); Eosinophils % 2.2 % (0.00-10.9); Hematocrit 21.9 VOL% (35.7-47.0); Hemoglobin 7.2 GM/DL (12.0-16.0); Immature Granulocytes % 0.7 %; Immature Granulocytes Absolute 0.06 #; Lymphocytes # 0.4 10*3/uL (1.4-4.0); Lymphocytes % 4.6 % (21.3-54.2); Mean Corpuscular HGB Conc 32.9 GM/DL (32-36); Mean Corpuscular Volume 97.3 FL (87-102); Mean Platelet Volume 9.6 FL (9.6-12.0); Monocytes % 14.5 % (1.7-12.7); Neutrophils % 77.6 % (38.7-73.9); Platelet Count 248 T/CUMM (130-400); Red Blood Count 2.25 MC/CUMM (3.8-5.5); Red Cell Distribution Width 15.5 % (9.3-17.3)
[2021-11-22 05:24] LABS: Eosinophils 2 % (0-10); Hypochromia 1+; Lymphocytes 6 % (20-55); Microcytosis 1+; Platelet Estimate Adequate; Segmented Neutrophils 86 % (50-85); Total Cells Counted 100
[2021-11-22 05:36] LABS: Calcium 6.9 MG/DL (8.5-10.1); Osmolality,Calculated 268.6 MOS/KG (273-304); Potassium 4.9 MMOL/L (3.5-5.1); Thyroid Stimulating Hormone 3.58 uIU/ml (0.358-3.74)
[2021-11-22] MEDS: LEVOTHYROXINE 75 MCG TABLET PO SCH (05:41)
[2021-11-22] MEDS: INSULIN REGULAR 100 UNIT/ML SUBCUT SCH ×4 (08:32→21:38)
[2021-11-22] MEDS: hydrALAZINE 25 MG TABLET PO SCH ×2 (08:32→21:38)
[2021-11-22] MEDS ORDERED: AMIODARONE 200 MG TABLET PO SCH (09:00)
[2021-11-22] MEDS ORDERED: amLODIPine 5 MG TABLET PO SCH (09:00)
[2021-11-22] MEDS: OMEGA 3 ACID ETHYL ESTERS 1 GM CAPSULE PO SCH ×2 (09:23→21:38)
[2021-11-22] MEDS: amLODIPine 10 MG TABLET PO SCH (09:23)
[2021-11-22] MEDS: ASPIRIN EC 81 MG TABLET PO SCH (09:23)
[2021-11-22] MEDS: HEPARIN 5,000 UNIT/1 ML VIAL SUBCUT SCH ×2 (09:24→21:39)
[2021-11-22] MEDS ORDERED: LORazepam 0.5 MG TABLET PO ONE (09:45)
[2021-11-22] MEDS ORDERED: SODIUM CHLORIDE 0.9% 1,000 ML IV PRN (12:41)
[2021-11-22] MEDS ORDERED: LORazepam 1 MG TABLET PO ONE (13:30)
[2021-11-22] MEDS: MONTELUKAST 10 MG TABLET PO SCH (21:38)
[2021-11-23 05:30] LABS: Basophils % 0.5 % (0.0-0.8); Eosinophils # 0.2 10*3/uL (0.0-0.87); Eosinophils % 2.8 % (0.00-10.9); Hematocrit 28.8 VOL% (35.7-47.0); Immature Granulocytes Absolute 0.16 #; Lymphocytes # 0.4 10*3/uL (1.4-4.0); Lymphocytes % 4.9 % (21.3-54.2); Mean Corpuscular HGB Conc 33.3 GM/DL (32-36); Mean Platelet Volume 9.1 FL (9.6-12.0); Monocytes % 15.1 % (1.7-12.7); Neutrophils % 74.7 % (38.7-73.9); Platelet Count 226 T/CUMM (130-400); White Blood Count 8.2 T/CUMM (4-12)
[2021-11-23 05:42] LABS: Hemoglobin 9.6 GM/DL (12.0-16.0)
[2021-11-23 05:49] LABS: Calcium 7.3 MG/DL (8.5-10.1); Osmolality,Calculated 270.6 MOS/KG (273-304); Potassium 4.9 MMOL/L (3.5-5.1)
[2021-11-23 05:52] LABS: Eosinophils 2 % (0-10); Hypochromia Slight; Lymphocytes 3 % (20-55); Platelet Estimate Normal; Segmented Neutrophils 85 % (50-85); Total Cells Counted 100
[2021-11-23 05:54] LABS: % Iron Saturation 23.7 % (18-50); Ferritin 364.8 ng/mL (8-252)
[2021-11-23 06:07] LABS: Hematocrit 28.2 VOL% (35.7-47.0); Hemoglobin 9.3 GM/DL (12.0-16.0)
[2021-11-23 06:10] LABS: Folate 11.39 NG/ML (5.38-24.0); Vitamin B12 576 PG/ML (211-911)
[2021-11-23] MEDS: SIMVASTATIN 20 MG TABLET PO SCH (06:15)
[2021-11-23] MEDS: LEVOTHYROXINE 75 MCG TABLET PO SCH (06:15)
[2021-11-23 06:52] LABS: Sedimentation Rate-Westergren 90 MM/HR (0-30)
[2021-11-23] MEDS: INSULIN REGULAR 100 UNIT/ML SUBCUT SCH ×4 (08:32→22:12)
[2021-11-23 08:56] LABS: Hemoglobin A1 (Alkaline) 97.9 % (96.5-98.5); Hemoglobin A2 (Alkaline) 2.1 % (1.5-3.5)
[2021-11-23] MEDS: amLODIPine 10 MG TABLET PO SCH (09:26)
[2021-11-23] MEDS: GABAPENTIN 300 MG CAPSULE PO SCH ×3 (09:26→16:54)
[2021-11-23] MEDS: ASPIRIN EC 81 MG TABLET PO SCH (09:26)
[2021-11-23] MEDS: hydrALAZINE 25 MG TABLET PO SCH ×2 (09:26→22:11)
[2021-11-23] MEDS: OMEGA 3 ACID ETHYL ESTERS 1 GM CAPSULE PO SCH ×2 (09:26→22:11)
[2021-11-23] MEDS: HEPARIN 5,000 UNIT/1 ML VIAL SUBCUT SCH (09:49)
[2021-11-23] MEDS ORDERED: methylPREDNISolone ACETATE 40 MG/1 ML VIAL MISC INJ ONE (11:00)
[2021-11-23] MEDS: SODIUM CHLORIDE 1 GM TABLET PO SCH ×3 (12:55→22:12)
[2021-11-23] MEDS: SODIUM CHLORIDE 3% INJ 500 ML IV SCH (13:56)
[2021-11-23] MEDS: SODIUM CHLORIDE 0.9% 1,000 ML IV SCH (15:37)
[2021-11-23] MEDS: GABAPENTIN 600 MG TABLET PO SCH (22:11)
[2021-11-23] MEDS: MONTELUKAST 10 MG TABLET PO SCH (22:11)
[2021-11-23] MEDS: DOPamine 800 MG/250 ML PREMIX IV SCH (22:12)
[2021-11-24 05:12] LABS: Basophils % 0.3 % (0.0-0.8); Eosinophils # 0.1 10*3/uL (0.0-0.87); Eosinophils % 0.6 % (0.00-10.9); Hematocrit 27.9 VOL% (35.7-47.0); Immature Granulocytes % 0.6 %; Immature Granulocytes Absolute 0.06 #; Lymphocytes # 0.4 10*3/uL (1.4-4.0); Lymphocytes % 3.7 % (21.3-54.2); Mean Corpuscular HGB Conc 32.3 GM/DL (32-36); Mean Corpuscular Volume 98.2 FL (87-102); Mean Platelet Volume 9.4 FL (9.6-12.0); Monocytes % 15.5 % (1.7-12.7); Neutrophils % 79.3 % (38.7-73.9); Platelet Count 225 T/CUMM (130-400); Red Blood Count 2.84 MC/CUMM (3.8-5.5); Red Cell Distribution Width 16.1 % (9.3-17.3); White Blood Count 9.7 T/CUMM (4-12)
[2021-11-24 05:32] LABS: Eosinophils 1 % (0-10); Hypochromia Slight; Lymphocytes 2 % (20-55); Microcytosis 1+; Segmented Neutrophils 79 % (50-85); Total Cells Counted 100
[2021-11-24 05:33] LABS: Ovalocytes Slight; Platelet Estimate Normal
[2021-11-24 05:45] LABS: Calcium 7.4 MG/DL (8.5-10.1); Osmolality,Calculated 281.9 MOS/KG (273-304)
[2021-11-24] MEDS: LEVOTHYROXINE 75 MCG TABLET PO SCH (07:06)
[2021-11-24] MEDS: INSULIN REGULAR 100 UNIT/ML SUBCUT SCH ×4 (08:08→21:33)
[2021-11-24] MEDS: OMEGA 3 ACID ETHYL ESTERS 1 GM CAPSULE PO SCH ×2 (08:41→21:30)
[2021-11-24] MEDS: GABAPENTIN 300 MG CAPSULE PO SCH ×3 (08:42→16:19)
[2021-11-24] MEDS: CALCIUM (CARBONATE)/VITAMIN D 600 MG-400 UNIT TABLET PO SCH ×2 (08:42→21:30)
[2021-11-24] MEDS: SODIUM CHLORIDE 1 GM TABLET PO SCH ×4 (08:42→21:30)
[2021-11-24] MEDS: hydrALAZINE 25 MG TABLET PO SCH ×2 (08:42→21:30)
[2021-11-24] MEDS: amLODIPine 10 MG TABLET PO SCH (08:42)
[2021-11-24] MEDS: ASPIRIN EC 81 MG TABLET PO SCH (08:42)
[2021-11-24 11:19] LABS: Soluble Transf Receptor (sTfR) 2.9 mg/L (1.8 - 4.6)
[2021-11-24 12:43] LABS: Calcium 7.2 MG/DL (8.5-10.1); Osmolality,Calculated 289.7 MOS/KG (273-304); Potassium 4.9 MMOL/L (3.5-5.1)
[2021-11-24] MEDS: SODIUM CHLORIDE 3% INJ 500 ML IV SCH ×2 (14:38→17:26)
[2021-11-24] MEDS: MONTELUKAST 10 MG TABLET PO SCH (21:30)
[2021-11-24] MEDS: DOPamine 800 MG/250 ML PREMIX IV SCH (21:32)
[2021-11-24] MEDS: GABAPENTIN 600 MG TABLET PO SCH (21:33)
[2021-11-25 05:17] LABS: Basophils % 0.3 % (0.0-0.8); Eosinophils # 0.1 10*3/uL (0.0-0.87); Eosinophils % 1.6 % (0.00-10.9); Hematocrit 26.9 VOL% (35.7-47.0); Hemoglobin 8.5 GM/DL (12.0-16.0); Immature Granulocytes % 0.4 %; Immature Granulocytes Absolute 0.04 #; Lymphocytes # 0.4 10*3/uL (1.4-4.0); Mean Corpuscular HGB Conc 31.6 GM/DL (32-36); Mean Corpuscular Volume 99.6 FL (87-102); Mean Platelet Volume 9.2 FL (9.6-12.0); Monocytes % 16.7 % (1.7-12.7); Platelet Count 199 T/CUMM (130-400); Red Cell Distribution Width 16.2 % (9.3-17.3)
[2021-11-25 05:43] LABS: Eosinophils 2 % (0-10); Hypochromia Slight; Lymphocytes 4 % (20-55); Platelet Estimate Normal; Segmented Neutrophils 83 % (50-85); Total Cells Counted 100
[2021-11-25 05:48] LABS: Calcium 7.8 MG/DL (8.5-10.1); Osmolality,Calculated 293.1 MOS/KG (273-304); Potassium 4.8 MMOL/L (3.5-5.1)
[2021-11-25] MEDS: SIMVASTATIN 20 MG TABLET PO SCH (08:27)
[2021-11-25] MEDS: LEVOTHYROXINE 75 MCG TABLET PO SCH (08:27)
[2021-11-25] MEDS: INSULIN REGULAR 100 UNIT/ML SUBCUT SCH ×4 (08:28→21:06)
[2021-11-25] MEDS ORDERED: FUROSEMIDE 40 MG/4 ML VIAL IV ONE (08:43)
[2021-11-25] MEDS: GABAPENTIN 300 MG CAPSULE PO SCH ×3 (08:49→20:04)
[2021-11-25] MEDS: ALBUTEROL 0.63 MG/3 ML NEB RESP TX SCH ×3 (09:14→20:14)
[2021-11-25] MEDS ORDERED: TISSUE ADHESIVE 1 EACH APPLICATOR TOP ONE (10:28)
[2021-11-25] MEDS ORDERED: ROPIVACAINE 0.5% 30 ML VIAL ONE (10:28)
[2021-11-25] MEDS ORDERED: LIDOCAINE 2% 5 ML VIAL ONE (10:34)
[2021-11-25] MEDS ORDERED: DEXAMETHASONE 4 MG/1 ML VIAL ONE (10:34)
[2021-11-25] MEDS ORDERED: ETOMIDATE 40 MG/20 ML VIAL IV ONE (10:34)
[2021-11-25] MEDS ORDERED: ONDANSETRON 4 MG/2 ML VIAL ONE (10:34)
[2021-11-25] MEDS ORDERED: propofoL 200 MG/20 ML VIAL IV ONE (10:34)
[2021-11-25] MEDS ORDERED: DEXMEDETOMIDINE 200 MCG/2 ML VIAL ONE (10:34)
[2021-11-25] MEDS ORDERED: ACETAMINOPHEN INJ 1,000 MG/100 ML VIAL IV ONE (10:42)
[2021-11-25] MEDS: hydrALAZINE 25 MG TABLET PO SCH ×2 (11:13→21:06)
[2021-11-25] MEDS: CALCIUM (CARBONATE)/VITAMIN D 600 MG-400 UNIT TABLET PO SCH ×2 (11:14→21:06)
[2021-11-25] MEDS: amLODIPine 5 MG TABLET PO SCH (11:14)
[2021-11-25] MEDS: OMEGA 3 ACID ETHYL ESTERS 1 GM CAPSULE PO SCH ×2 (11:14→21:05)
[2021-11-25] MEDS: ASPIRIN EC 81 MG TABLET PO SCH (11:14)
[2021-11-25] MEDS: SODIUM CHLORIDE 1 GM TABLET PO SCH ×2 (11:15→13:29)
[2021-11-25] MEDS ORDERED: LACTATED RINGERS 1,000 ML IV SCH (11:30)
[2021-11-25] MEDS ORDERED: ceFAZolin 1,000 MG VIAL ONE (11:43)
[2021-11-25] MEDS: FUROSEMIDE 40 MG/4 ML VIAL IV SCH (16:18)
[2021-11-25] MEDS: MONTELUKAST 10 MG TABLET PO SCH (21:05)
[2021-11-25] MEDS: GABAPENTIN 600 MG TABLET PO SCH (21:05)
[2021-11-25] MEDS: DOPamine 800 MG/250 ML PREMIX IV SCH (21:06)
[2021-11-26] MEDS: ALBUTEROL 0.63 MG/3 ML NEB RESP TX SCH ×5 (01:00→19:55)
[2021-11-26] MEDS: LEVOTHYROXINE 75 MCG TABLET PO SCH (05:11)
[2021-11-26 06:04] LABS: Basophils % 0.1 % (0.0-0.8); Hematocrit 25.4 VOL% (35.7-47.0); Immature Granulocytes % 0.9 %; Immature Granulocytes Absolute 0.09 #; Lymphocytes # 0.2 10*3/uL (1.4-4.0); Lymphocytes % 2.1 % (21.3-54.2); Mean Corpuscular HGB Conc 31.5 GM/DL (32-36); Mean Corpuscular Volume 102.4 FL (87-102); Mean Platelet Volume 9.5 FL (9.6-12.0); Monocytes % 11.8 % (1.7-12.7); Neutrophils % 85.1 % (38.7-73.9); Platelet Count 195 T/CUMM (130-400); Red Blood Count 2.48 MC/CUMM (3.8-5.5); Red Cell Distribution Width 15.9 % (9.3-17.3); White Blood Count 10.1 T/CUMM (4-12)
[2021-11-26 06:34] LABS: Calcium 8.1 MG/DL (8.5-10.1); Osmolality,Calculated 294.1 MOS/KG (273-304); Potassium 5.4 MMOL/L (3.5-5.1)
[2021-11-26 06:49] LABS: Lymphocytes 1 % (20-55); Segmented Neutrophils 89 % (50-85); Total Cells Counted 100
[2021-11-26 06:50] LABS: Hypochromia 1+; Microcytosis 1+; Platelet Estimate Adequate
[2021-11-26] MEDS ORDERED: LEVOFLOXACIN INJ 500 MG/100 ML PREMIX IV ONE (08:30)
[2021-11-26] MEDS: INSULIN REGULAR 100 UNIT/ML SUBCUT SCH ×4 (09:18→21:24)
[2021-11-26] MEDS: OMEGA 3 ACID ETHYL ESTERS 1 GM CAPSULE PO SCH ×2 (09:25→21:24)
[2021-11-26] MEDS: DOCUSATE SODIUM 100 MG CAPSULE PO SCH ×2 (09:25→21:23)
[2021-11-26] MEDS: hydrALAZINE 25 MG TABLET PO SCH ×2 (09:25→21:23)
[2021-11-26] MEDS: CALCIUM (CARBONATE)/VITAMIN D 600 MG-400 UNIT TABLET PO SCH ×2 (09:25→21:23)
[2021-11-26] MEDS: ASPIRIN EC 81 MG TABLET PO SCH (09:25)
[2021-11-26] MEDS: POLYETHYLENE GLYCOL POWDER 17 GM PACK PO SCH ×2 (09:25→21:23)
[2021-11-26] MEDS: amLODIPine 5 MG TABLET PO SCH (09:25)
[2021-11-26] MEDS: GABAPENTIN 300 MG CAPSULE PO SCH ×3 (09:27→16:22)
[2021-11-26] MEDS: FUROSEMIDE 40 MG/4 ML VIAL IV SCH ×2 (09:36→16:22)
[2021-11-26] MEDS: LINACLOTIDE 145 MCG CAPSULE PO SCH (12:30)
[2021-11-26] MEDS ORDERED: LACTULOSE 20 GM/30 ML UDCUP PO PRN (13:04)
[2021-11-26] MEDS: MONTELUKAST 10 MG TABLET PO SCH (21:23)
[2021-11-26] MEDS: GABAPENTIN 600 MG TABLET PO SCH (21:24)
[2021-11-26] MEDS: DOPamine 800 MG/250 ML PREMIX IV SCH (21:25)
[2021-11-27] MEDS: ALBUTEROL 0.63 MG/3 ML NEB RESP TX SCH ×6 (00:20→19:25)
[2021-11-27 05:06] LABS: Basophils % 0.2 % (0.0-0.8); Eosinophils # 0.1 10*3/uL (0.0-0.87); Eosinophils % 0.5 % (0.00-10.9); Hematocrit 26.4 VOL% (35.7-47.0); Hemoglobin 8.2 GM/DL (12.0-16.0); Immature Granulocytes % 0.9 %; Immature Granulocytes Absolute 0.09 #; Lymphocytes # 0.2 10*3/uL (1.4-4.0); Lymphocytes % 2.1 % (21.3-54.2); Mean Corpuscular HGB Conc 31.1 GM/DL (32-36); Mean Corpuscular Volume 101.1 FL (87-102); Mean Platelet Volume 9.5 FL (9.6-12.0); Monocytes % 17.4 % (1.7-12.7); Neutrophils % 78.9 % (38.7-73.9); Platelet Count 206 T/CUMM (130-400); Red Blood Count 2.61 MC/CUMM (3.8-5.5); Red Cell Distribution Width 15.8 % (9.3-17.3); White Blood Count 10.6 T/CUMM (4-12)
[2021-11-27] MEDS: SIMVASTATIN 20 MG TABLET PO SCH (05:07)
[2021-11-27] MEDS: LEVOTHYROXINE 75 MCG TABLET PO SCH (05:07)
[2021-11-27 05:25] LABS: Calcium 7.9 MG/DL (8.5-10.1); Osmolality,Calculated 291.4 MOS/KG (273-304); Potassium 5.5 MMOL/L (3.5-5.1)
[2021-11-27 05:33] LABS: Hypochromia Slight; Lymphocytes 3 % (20-55); Platelet Estimate Normal; Segmented Neutrophils 86 % (50-85); Total Cells Counted 100
[2021-11-27] MEDS ORDERED: SODIUM POLYSTYRENE SULFATE 15 GM/60 ML BOTTLE PO ONE (06:28)
[2021-11-27] MEDS: INSULIN REGULAR 100 UNIT/ML SUBCUT SCH ×4 (08:55→20:49)
[2021-11-27] MEDS: GABAPENTIN 300 MG CAPSULE PO SCH ×3 (08:55→16:43)
[2021-11-27] MEDS: CALCIUM (CARBONATE)/VITAMIN D 600 MG-400 UNIT TABLET PO SCH ×2 (08:55→20:49)
[2021-11-27] MEDS: OMEGA 3 ACID ETHYL ESTERS 1 GM CAPSULE PO SCH ×2 (08:56→20:49)
[2021-11-27] MEDS: hydrALAZINE 25 MG TABLET PO SCH ×2 (08:56→20:49)
[2021-11-27] MEDS: amLODIPine 5 MG TABLET PO SCH (08:56)
[2021-11-27] MEDS: ASPIRIN EC 81 MG TABLET PO SCH (08:56)
[2021-11-27] MEDS: FUROSEMIDE 40 MG/4 ML VIAL IV SCH ×2 (08:56→16:42)
[2021-11-27] MEDS: DOCUSATE SODIUM 100 MG CAPSULE PO SCH ×2 (08:57→20:49)
[2021-11-27] MEDS: LINACLOTIDE 145 MCG CAPSULE PO SCH (08:57)
[2021-11-27] MEDS: POLYETHYLENE GLYCOL POWDER 17 GM PACK PO SCH ×2 (08:57→20:50)
[2021-11-27] MEDS: LEVOFLOXACIN INJ 250 MG/50 ML PREMIX IV SCH (09:06)
[2021-11-27] MEDS: SODIUM ZIRCONIUM CYCLOSILICATE 10 GM PACK PO SCH (09:48)
[2021-11-27] MEDS: GABAPENTIN 600 MG TABLET PO SCH (20:49)
[2021-11-27] MEDS: MONTELUKAST 10 MG TABLET PO SCH (20:49)
[2021-11-27] MEDS: DOPamine 800 MG/250 ML PREMIX IV SCH (20:51)
[2021-11-28] MEDS: ALBUTEROL 0.63 MG/3 ML NEB RESP TX SCH ×7 (00:10→23:50)
[2021-11-28] MEDS: LEVOTHYROXINE 75 MCG TABLET PO SCH (05:16)
[2021-11-28] MEDS: LEVOFLOXACIN INJ 250 MG/50 ML PREMIX IV SCH (09:04)
[2021-11-28] MEDS: CALCIUM (CARBONATE)/VITAMIN D 600 MG-400 UNIT TABLET PO SCH ×2 (09:05→20:36)
[2021-11-28] MEDS: INSULIN REGULAR 100 UNIT/ML SUBCUT SCH ×4 (09:05→20:37)
[2021-11-28] MEDS: GABAPENTIN 300 MG CAPSULE PO SCH ×3 (09:05→17:00)
[2021-11-28] MEDS: FUROSEMIDE 40 MG/4 ML VIAL IV SCH ×2 (09:05→15:52)
[2021-11-28] MEDS: amLODIPine 5 MG TABLET PO SCH (09:05)
[2021-11-28] MEDS: OMEGA 3 ACID ETHYL ESTERS 1 GM CAPSULE PO SCH ×2 (09:05→20:36)
[2021-11-28] MEDS: hydrALAZINE 25 MG TABLET PO SCH ×2 (09:05→20:36)
[2021-11-28] MEDS: LINACLOTIDE 145 MCG CAPSULE PO SCH (09:05)
[2021-11-28] MEDS: DOCUSATE SODIUM 100 MG CAPSULE PO SCH ×2 (09:06→20:37)
[2021-11-28] MEDS: POLYETHYLENE GLYCOL POWDER 17 GM PACK PO SCH ×2 (09:06→20:37)
[2021-11-28] MEDS: SODIUM ZIRCONIUM CYCLOSILICATE 10 GM PACK PO SCH (09:06)
[2021-11-28] MEDS: SODIUM POLYSTYRENE SULFATE 15 GM/60 ML BOTTLE PO ONE ×2 (20:36→22:00)
[2021-11-28] MEDS: GABAPENTIN 600 MG TABLET PO SCH (20:36)
[2021-11-28] MEDS: MONTELUKAST 10 MG TABLET PO SCH (20:36)
[2021-11-28] MEDS: MEROPENEM 500 MG in SODIUM CHLORIDE 0.9% 100 ML IV SCH (20:38)
[2021-11-28] MEDS: INSULIN GLARGINE 100 UNIT/ML SUBCUT SCH (20:38)
[2021-11-28] MEDS: DOPamine 800 MG/250 ML PREMIX IV SCH (20:42)
[2021-11-29 02:30] LABS: Basophils % 0.1 % (0.0-0.8); Eosinophils # 0.1 10*3/uL (0.0-0.87); Eosinophils % 0.6 % (0.00-10.9); Hematocrit 24.1 VOL% (35.7-47.0); Hemoglobin 7.5 GM/DL (12.0-16.0); Immature Granulocytes % 1.1 %; Lymphocytes # 0.3 10*3/uL (1.4-4.0); Lymphocytes % 2.6 % (21.3-54.2); Mean Corpuscular HGB Conc 31.1 GM/DL (32-36); Mean Corpuscular Volume 98.8 FL (87-102); Mean Platelet Volume 9.1 FL (9.6-12.0); Monocytes % 15.6 % (1.7-12.7); Platelet Count 190 T/CUMM (130-400); Red Blood Count 2.44 MC/CUMM (3.8-5.5); Red Cell Distribution Width 15.5 % (9.3-17.3); White Blood Count 9.5 T/CUMM (4-12)
[2021-11-29 02:47] LABS: Calcium 7.8 MG/DL (8.5-10.1)
[2021-11-29 03:01] LABS: Lymphocytes 3 % (20-55); Segmented Neutrophils 87 % (50-85); Total Cells Counted 100
[2021-11-29 03:05] LABS: Hypochromia 2+; Microcytosis 2+; Platelet Estimate Normal
[2021-11-29] MEDS: ALBUTEROL 0.63 MG/3 ML NEB RESP TX SCH ×2 (04:29→07:30)
[2021-11-29] MEDS: SIMVASTATIN 20 MG TABLET PO SCH (05:12)
[2021-11-29] MEDS: LEVOTHYROXINE 75 MCG TABLET PO SCH (05:12)
[2021-11-29] MEDS ORDERED: ALBUTEROL 0.63 MG/3 ML NEB RESP TX PRN (08:21)
[2021-11-29] MEDS: INSULIN REGULAR 100 UNIT/ML SUBCUT SCH ×4 (08:45→22:34)
[2021-11-29] MEDS ORDERED: methylPREDNISolone SOD SUC 125 MG/2 ML VIAL IV ONE (09:09)
[2021-11-29] MEDS: LINACLOTIDE 145 MCG CAPSULE PO SCH (09:55)
[2021-11-29] MEDS: hydrALAZINE 25 MG TABLET PO SCH ×2 (09:55→22:33)
[2021-11-29] MEDS: DOCUSATE SODIUM 100 MG CAPSULE PO SCH ×2 (09:55→22:33)
[2021-11-29] MEDS: CALCIUM (CARBONATE)/VITAMIN D 600 MG-400 UNIT TABLET PO SCH ×2 (09:55→22:33)
[2021-11-29] MEDS: OMEGA 3 ACID ETHYL ESTERS 1 GM CAPSULE PO SCH ×2 (09:55→22:33)
[2021-11-29] MEDS: GABAPENTIN 300 MG CAPSULE PO SCH ×3 (09:56→16:49)
[2021-11-29] MEDS: POLYETHYLENE GLYCOL POWDER 17 GM PACK PO SCH ×2 (09:56→22:33)
[2021-11-29] MEDS: SODIUM ZIRCONIUM CYCLOSILICATE 10 GM PACK PO SCH (09:59)
[2021-11-29] MEDS ORDERED: SODIUM CHLORIDE 0.9% 1,000 ML IV PRN (10:46)
[2021-11-29] MEDS: ALBUTEROL/IPRATROPIUM 3 ML NEB RESP TX SCH ×5 (10:53→23:01)
[2021-11-29] MEDS: FUROSEMIDE 40 MG/4 ML VIAL IV SCH ×2 (11:34→19:13)
[2021-11-29] MEDS: MEROPENEM 500 MG in SODIUM CHLORIDE 0.9% 100 ML IV SCH ×2 (11:35→22:35)
[2021-11-29] MEDS: MONTELUKAST 10 MG TABLET PO SCH (22:34)
[2021-11-29] MEDS: GABAPENTIN 600 MG TABLET PO SCH (22:34)
[2021-11-29] MEDS: INSULIN GLARGINE 100 UNIT/ML SUBCUT SCH (22:34)
[2021-11-30] MEDS: DOPamine 800 MG/250 ML PREMIX IV SCH (01:07)
[2021-11-30] MEDS: ALBUTEROL/IPRATROPIUM 3 ML NEB RESP TX SCH ×4 (03:15→15:23)
[2021-11-30 05:01] LABS: Basophils % 0.1 % (0.0-0.8); Hematocrit 29.7 VOL% (35.7-47.0); Hemoglobin 9.4 GM/DL (12.0-16.0); Immature Granulocytes % 1.2 %; Lymphocytes # 0.1 10*3/uL (1.4-4.0); Lymphocytes % 1.2 % (21.3-54.2); Mean Corpuscular HGB Conc 31.6 GM/DL (32-36); Mean Corpuscular Volume 97.4 FL (87-102); Mean Platelet Volume 9.5 FL (9.6-12.0); Monocytes % 5.3 % (1.7-12.7); Neutrophils % 92.2 % (38.7-73.9); Platelet Count 230 T/CUMM (130-400); Red Blood Count 3.05 MC/CUMM (3.8-5.5); Red Cell Distribution Width 15.3 % (9.3-17.3); White Blood Count 8.3 T/CUMM (4-12)
[2021-11-30 05:21] LABS: Osmolality,Calculated 303.2 MOS/KG (273-304)
[2021-11-30 05:25] LABS: Platelet Estimate Adequate; Segmented Neutrophils 95 % (50-85); Total Cells Counted 100
[2021-11-30 05:26] LABS: Hypochromia 1+; Microcytosis 1+
[2021-11-30] MEDS: LEVOTHYROXINE 75 MCG TABLET PO SCH (06:13)
[2021-11-30] MEDS: MEROPENEM 500 MG in SODIUM CHLORIDE 0.9% 100 ML IV SCH (08:11)
[2021-11-30] MEDS: POLYETHYLENE GLYCOL POWDER 17 GM PACK PO SCH (09:49)
[2021-11-30] MEDS: INSULIN REGULAR 100 UNIT/ML SUBCUT SCH ×3 (09:49→16:42)
[2021-11-30] MEDS: SODIUM ZIRCONIUM CYCLOSILICATE 10 GM PACK PO SCH (09:49)
[2021-11-30] MEDS: OMEGA 3 ACID ETHYL ESTERS 1 GM CAPSULE PO SCH (09:50)
[2021-11-30] MEDS: GABAPENTIN 300 MG CAPSULE PO SCH ×3 (09:50→16:42)
[2021-11-30] MEDS: DOCUSATE SODIUM 100 MG CAPSULE PO SCH (09:50)
[2021-11-30] MEDS: hydrALAZINE 25 MG TABLET PO SCH (09:50)
[2021-11-30] MEDS: LINACLOTIDE 145 MCG CAPSULE PO SCH (09:50)
[2021-11-30] MEDS: CALCIUM (CARBONATE)/VITAMIN D 600 MG-400 UNIT TABLET PO SCH (09:51)
[2021-11-30 16:55] VITALS: BP 139/76
== END 2021-11-30 19:14 | disposition swing bed (61) | DRG 477 ==
LOC: EDUNIT# → SUATTDRO → EDBD → N.ED 03:27 → N.EDINP 07:52 → SUATTDRO 07:52 → N.TELES 20:46
PROVIDERS: ADMIT Hospitalist; ATTEND Emergency Medicine

== ENCOUNTER 2021-12-09 00:49 | Inpatient (IN) ==
[2021-12-09] MEDS ORDERED: methylPREDNISolone SOD SUC 125 MG/2 ML VIAL IV STA (03:21)
[2021-12-09] MEDS ORDERED: FUROSEMIDE 100 MG/10 ML VIAL IV STA (03:21)
[2021-12-09] MEDS ORDERED: ONDANSETRON 4 MG/2 ML VIAL IV STA (03:21)
[2021-12-09] MEDS ORDERED: ALBUTEROL/IPRATROPIUM 3 ML NEB RESP TX STA (03:21)
[2021-12-09 03:51] LABS: ABG Base Excess 2.5 MMOL/L (-2.5-2.5); ABG HCO3 26.7 MMOL/L (20-26); ABG Oxygen Saturation 96.8 % (95-100); ABG PCO2 62.2 MM HG (35-48); ABG PH 7.295 (7.35-7.45); ABG PO2 90.2 MM HG (80-95); ABG TCO2 28.2 MMOL/L (23-27)
[2021-12-09 04:08] LABS: Basophils # 0.1 10*3/uL (0.0-0.2); Basophils % 0.3 % (0.0-0.8); Eosinophils # 0.1 10*3/uL (0.0-0.87); Eosinophils % 0.7 % (0.00-10.9); Hematocrit 27.3 VOL% (35.7-47.0); Hemoglobin 8.3 GM/DL (12.0-16.0); Immature Granulocytes % 7.5 %; Immature Granulocytes Absolute 1.45 #; Lymphocytes # 0.6 10*3/uL (1.4-4.0); Mean Corpuscular HGB Conc 30.4 GM/DL (32-36); Mean Corpuscular Volume 97.8 FL (87-102); Mean Platelet Volume 9.8 FL (9.6-12.0); Monocytes % 8.2 % (1.7-12.7); NRBC # 0.03 10*3/uL; Neutrophils % 80.3 % (38.7-73.9); Platelet Count 463 T/CUMM (130-400); Red Blood Count 2.79 MC/CUMM (3.8-5.5); Red Cell Distribution Width 15.6 % (9.3-17.3); White Blood Count 19.2 T/CUMM (4-12)
[2021-12-09 04:25] LABS: PT Patient Result 11.2 SECS (10.5-12.0)
[2021-12-09 04:32] LABS: Lymphocytes 8 % (20-55); Segmented Neutrophils 85 % (50-85); Total Cells Counted 100
[2021-12-09 04:33] LABS: Anisocytosis 1+; Platelet Estimate Increased; Poikilocytosis 1+; Polychromasia 1+
[2021-12-09 04:34] LABS: Hypochromia 1+
[2021-12-09 04:44] LABS: Albumin 1.7 G/DL (3.4-5.0); Bilirubin,Total 0.4 MG/DL (0.20-1.00); Osmolality,Calculated 299.7 MOS/KG (273-304); Total Protein 6.4 G/DL (6.4-8.2)
[2021-12-09 04:47] LABS: Potassium 6.6 MMOL/L (3.5-5.1)
[2021-12-09] MEDS ORDERED: INSULIN REGULAR 10 UNIT, CALCIUM GLUCONATE 1,000 MG in DEXTROSE 10% 250 ML IV ONE (04:48)
[2021-12-09 04:52] LABS: Bacteria,Urine Occasional /HPF (Few); Bilirubin,Urine Negative (Negative); Blood, Urine Negative (Negative); Glucose,Urine (UA) Negative (Negative); Hyaline Casts,Urine 25 /LPF (0-3); Ketones,Urine Negative (Negative); Mucus,Urine Occasional /LPF (Occasional); Nitrite,Urine Negative (Negative); Protein,Urine Negative; RBC,Urine <1 /HPF (0-4); Squamous Epithelial Cell,Urine Occasional /HPF (0-10); Urine Appearance CLEAR (Clear); Urine Color Yellow (Yellow); Urine Specific Gravity 1.013 (1.001-1.035); Urine Urobilinogen < 2.0 EU/DL (<2.0)
[2021-12-09] MEDS ORDERED: DEXTROSE 10% IV ONE (05:00)
[2021-12-09] MEDS ORDERED: CALCIUM GLUCONATE RIDER 1,000 MG/50 ML PREMIX IV ONE (05:00)
[2021-12-09] MEDS ORDERED: INSULIN REGULAR IV ONE (05:00)
[2021-12-09] MEDS ORDERED: MEROPENEM 500 MG in SODIUM CHLORIDE 0.9% 100 ML IV SCH (06:00)
[2021-12-09] MEDS ORDERED: DEXTROSE 10% 250 ML BAG IV PRN (06:08)
[2021-12-09] MEDS ORDERED: GLUCAGON 1 MG VIAL IM PRN (06:08)
[2021-12-09] MEDS: ALBUTEROL/IPRATROPIUM 3 ML NEB RESP TX SCH ×3 (06:10→19:07)
[2021-12-09 07:51] LABS: ABG Base Excess 2.2 MMOL/L (-2.5-2.5); ABG HCO3 26.3 MMOL/L (20-26); ABG Oxygen Saturation 94.5 % (95-100); ABG PH 7.242 (7.35-7.45); ABG TCO2 29.3 MMOL/L (23-27)
[2021-12-09] MEDS ORDERED: FUROSEMIDE 40 MG/4 ML VIAL IV SCH (08:00)
[2021-12-09] MEDS: INSULIN REGULAR 100 UNIT/ML SUBCUT SCH ×3 (08:15→21:47)
[2021-12-09] MEDS ORDERED: AZITHROMYCIN 250 MG TABLET PO ONE (09:00)
[2021-12-09] MEDS: PANTOPRAZOLE 40 MG VIAL IV SCH (10:00)
[2021-12-09] MEDS: AZITHROMYCIN INJ 500 MG in SODIUM CHLORIDE 0.9% 250 ML IV SCH (10:15)
[2021-12-09] MEDS: CHOLECALCIFEROL 1,000 UNIT TABLET PO SCH (10:25)
[2021-12-09] MEDS: ZINC GLUCONATE 50 MG TABLET PO SCH (10:25)
[2021-12-09] MEDS: CETIRIZINE 10 MG TABLET PO SCH (10:25)
[2021-12-09] MEDS: ASCORBIC ACID 500 MG TABLET PO SCH ×2 (10:25→21:50)
[2021-12-09 13:11] LABS: Calcium 8.1 MG/DL (8.5-10.1); Osmolality,Calculated 301.8 MOS/KG (273-304)
[2021-12-09 13:14] LABS: Potassium 6.8 MMOL/L (3.5-5.1)
[2021-12-09] MEDS: methylPREDNISolone SOD SUC 40 MG/1 ML VIAL IV SCH ×3 (15:30→21:49)
[2021-12-09] MEDS ORDERED: methylPREDNISolone SOD SUC 40 MG/1 ML VIAL IV SCH (15:30)
[2021-12-09] MEDS: FUROSEMIDE INJ 100 MG in SODIUM CHLORIDE 0.9% 90 ML IV SCH (15:31)
[2021-12-09] MEDS: ALBUMIN 25% 12.5 GM/50 ML VIAL IV SCH ×2 (15:32→21:47)
[2021-12-09] MEDS: BARICITINIB 2 MG TABLET PO SCH (15:44)
[2021-12-09] MEDS: SODIUM ZIRCONIUM CYCLOSILICATE 10 GM PACK PO SCH ×2 (15:44→21:48)
[2021-12-09 15:49] LABS: ABG Base Excess 1.9 MMOL/L (-2.5-2.5); ABG HCO3 26.1 MMOL/L (20-26); ABG Oxygen Saturation 92.6 % (95-100); ABG PCO2 66.4 MM HG (35-48); ABG PH 7.264 (7.35-7.45); ABG PO2 67.8 MM HG (80-95); ABG TCO2 28.4 MMOL/L (23-27); Glucose Heart Surgery 227 MG/DL (74-106); Hematocrit Heart Surgery 25.4 PERCENT (37-47); Hemoglobin Heart Surgery 8.2 G/DL (12.0-16.0)
[2021-12-09] MEDS: MEROPENEM 500 MG in SODIUM CHLORIDE 0.9% 100 ML IV SCH (18:59)
[2021-12-09] MEDS: FLUTICASONE 50 MCG NASAL SPRAY 16 GM BOTTLE BOTH NARES SCH (21:48)
[2021-12-09 23:11] LABS: ABG Base Excess 1.5 MMOL/L (-2.5-2.5); ABG HCO3 29.4 MMOL/L (20-26); ABG Oxygen Saturation 87.5 % (95-100); ABG PCO2 67.9 MM HG (35-48); ABG PH 7.255 (7.35-7.45); ABG PO2 54.6 MM HG (80-95); ABG TCO2 31.5 MMOL/L (23-27)
[2021-12-10] MEDS: FUROSEMIDE INJ 100 MG in SODIUM CHLORIDE 0.9% 90 ML IV SCH (00:45)
[2021-12-10 00:58] LABS: Calcium 8.2 MG/DL (8.5-10.1); Osmolality,Calculated 303.8 MOS/KG (273-304)
[2021-12-10 01:01] LABS: Potassium 7.1 MMOL/L (3.5-5.1)
[2021-12-10] MEDS: ALBUTEROL/IPRATROPIUM 3 ML NEB RESP TX SCH ×4 (01:08→18:31)
[2021-12-10] MEDS ORDERED: SODIUM POLYSTYRENE SULFATE 15 GM/60 ML BOTTLE RECTAL ONE (02:40)
[2021-12-10] MEDS ORDERED: CALCIUM GLUCONATE RIDER 1,000 MG/50 ML PREMIX IV ONE (02:45)
[2021-12-10 02:52] LABS: Calcium 7.9 MG/DL (8.5-10.1); Osmolality,Calculated 308.5 MOS/KG (273-304)
[2021-12-10 02:54] LABS: Potassium 7.2 MMOL/L (3.5-5.1)
[2021-12-10] MEDS ORDERED: INSULIN REGULAR IV ONE (03:00)
[2021-12-10] MEDS ORDERED: DEXTROSE 10% IV ONE (03:00)
[2021-12-10] MEDS: INSULIN REGULAR 100 UNIT/ML SUBCUT SCH ×5 (03:27→21:54)
[2021-12-10] MEDS: ALBUMIN 25% 25 GM/100 ML VIAL IV SCH ×3 (04:15→18:44)
[2021-12-10] MEDS: methylPREDNISolone SOD SUC 40 MG/1 ML VIAL IV SCH ×4 (04:15→21:54)
[2021-12-10 04:30] LABS: ABG Base Excess 2.3 MMOL/L (-2.5-2.5); ABG HCO3 26.5 MMOL/L (20-26); ABG Oxygen Saturation 94.1 % (95-100); ABG PCO2 57.6 MM HG (35-48); ABG PH 7.312 (7.35-7.45); ABG PO2 69.6 MM HG (80-95); ABG TCO2 27.9 MMOL/L (23-27)
[2021-12-10 04:32] LABS: Basophils % 0.2 % (0.0-0.8); Hematocrit 25.5 VOL% (35.7-47.0); Hemoglobin 7.6 GM/DL (12.0-16.0); Immature Granulocytes % 6.9 %; Lymphocytes # 0.4 10*3/uL (1.4-4.0); Lymphocytes % 2.1 % (21.3-54.2); Mean Corpuscular HGB Conc 29.8 GM/DL (32-36); Mean Corpuscular Volume 98.5 FL (87-102); Mean Platelet Volume 9.7 FL (9.6-12.0); Monocytes % 2.4 % (1.7-12.7); NRBC # 0.06 10*3/uL; Neutrophils % 88.4 % (38.7-73.9); Platelet Count 477 T/CUMM (130-400); Red Blood Count 2.59 MC/CUMM (3.8-5.5); Red Cell Distribution Width 15.5 % (9.3-17.3); White Blood Count 18.8 T/CUMM (4-12)
[2021-12-10 04:52] LABS: Albumin 2.2 G/DL (3.4-5.0); Bilirubin,Total 1.1 MG/DL (0.20-1.00); Calcium 8.3 MG/DL (8.5-10.1); Osmolality,Calculated 311.5 MOS/KG (273-304); Total Protein 6.3 G/DL (6.4-8.2)
[2021-12-10 04:55] LABS: Potassium 6.7 MMOL/L (3.5-5.1)
[2021-12-10 05:04] LABS: Lymphocytes 5 % (20-55); Platelet Estimate Increased; Segmented Neutrophils 94 % (50-85); Total Cells Counted 100
[2021-12-10 05:05] LABS: Hypochromia 1+
[2021-12-10] MEDS: MEROPENEM 500 MG in SODIUM CHLORIDE 0.9% 100 ML IV SCH ×2 (05:15→17:55)
[2021-12-10 07:00] LABS: Calcium 8.2 MG/DL (8.5-10.1); Osmolality,Calculated 309.5 MOS/KG (273-304)
[2021-12-10 07:09] LABS: Potassium 6.6 MMOL/L (3.5-5.1)
[2021-12-10] MEDS ORDERED: AZITHROMYCIN 250 MG TABLET PO SCH (09:00)
[2021-12-10] MEDS: PANTOPRAZOLE 40 MG VIAL IV SCH (09:43)
[2021-12-10] MEDS: AZITHROMYCIN INJ 500 MG in SODIUM CHLORIDE 0.9% 250 ML IV SCH (09:44)
[2021-12-10] MEDS: BARICITINIB 2 MG TABLET PO SCH (11:27)
[2021-12-10] MEDS: CETIRIZINE 10 MG TABLET PO SCH (11:28)
[2021-12-10] MEDS: ZINC GLUCONATE 50 MG TABLET PO SCH (11:28)
[2021-12-10] MEDS: ASCORBIC ACID 500 MG TABLET PO SCH ×2 (11:28→21:54)
[2021-12-10] MEDS: CHOLECALCIFEROL 1,000 UNIT TABLET PO SCH (11:28)
[2021-12-10 15:30] LABS: Calcium 8.2 MG/DL (8.5-10.1); Osmolality,Calculated 310.4 MOS/KG (273-304)
[2021-12-10 15:34] LABS: Potassium 6.1 MMOL/L (3.5-5.1)
[2021-12-10] MEDS: SODIUM ZIRCONIUM CYCLOSILICATE 10 GM PACK PO SCH ×2 (15:36→21:52)
[2021-12-10] MEDS: FLUTICASONE 50 MCG NASAL SPRAY 16 GM BOTTLE BOTH NARES SCH ×2 (16:43→21:52)
[2021-12-10] MEDS ORDERED: DIAZEPAM 2 MG TABLET PO ONE (17:48)
[2021-12-10] MEDS: MORPHINE 2 MG/1 ML SYRINGE IV PRN (22:18)
[2021-12-11] MEDS: ALBUTEROL/IPRATROPIUM 3 ML NEB RESP TX SCH ×5 (00:31→18:30)
[2021-12-11] MEDS: methylPREDNISolone SOD SUC 40 MG/1 ML VIAL IV SCH ×4 (03:55→20:59)
[2021-12-11 04:08] LABS: ABG Base Excess 4.6 MMOL/L (-2.5-2.5); ABG HCO3 28.5 MMOL/L (20-26); ABG Oxygen Saturation 98.4 % (95-100); ABG PCO2 47.8 MM HG (35-48); ABG PH 7.407 (7.35-7.45); ABG TCO2 27.1 MMOL/L (23-27)
[2021-12-11] MEDS: DIAZEPAM 10 MG/2 ML SYRINGE IV PRN (04:14)
[2021-12-11 04:32] LABS: Basophils % 0.1 % (0.0-0.8); Hematocrit 21.2 VOL% (35.7-47.0); Immature Granulocytes % 4.9 %; Immature Granulocytes Absolute 0.79 #; Lymphocytes # 0.4 10*3/uL (1.4-4.0); Lymphocytes % 2.5 % (21.3-54.2); Mean Corpuscular HGB Conc 30.2 GM/DL (32-36); Mean Corpuscular Volume 98.1 FL (87-102); Mean Platelet Volume 9.9 FL (9.6-12.0); NRBC # 0.06 10*3/uL; Neutrophils % 88.5 % (38.7-73.9); Platelet Count 430 T/CUMM (130-400); Red Blood Count 2.16 MC/CUMM (3.8-5.5); Red Cell Distribution Width 16.2 % (9.3-17.3); White Blood Count 16.1 T/CUMM (4-12)
[2021-12-11 04:38] LABS: Hemoglobin 6.4 GM/DL (12.0-16.0)
[2021-12-11] MEDS ORDERED: SODIUM CHLORIDE 0.9% 1,000 ML IV PRN (04:44)
[2021-12-11 04:54] LABS: Alanine Aminotransferase 39 U/L (13-56); Albumin 2.9 G/DL (3.4-5.0); Alkaline Phosphatase 147 U/L (45-117); Aspartate Amino Transferase 29 U/L (0-37); Bilirubin,Total < 0.39 MG/DL (0.20-1.00); Blood Urea Nitrogen 137 MG/DL (7-18); Calcium 7.8 MG/DL (8.5-10.1); Carbon Dioxide 30 MMOL/L (21-32); Estimated Glom Filtration Rate 22 ML/MIN; Glucose 187 MG/DL (74-106); Osmolality,Calculated 314.4 MOS/KG (273-304); Sodium 133 MMOL/L (136-145); Total Protein 6.1 G/DL (6.4-8.2)
[2021-12-11 04:57] LABS: Band Neutrophils 1 % (0-10); Hypochromia 2+; Lymphocytes 3 % (20-55); Microcytosis 1+; Nucleated Red Blood Cells 1 (0-5); Platelet Estimate Adequate; Segmented Neutrophils 95 % (50-85); Total Cells Counted 100
[2021-12-11] MEDS: MEROPENEM 500 MG in SODIUM CHLORIDE 0.9% 100 ML IV SCH ×2 (06:00→17:48)
[2021-12-11] MEDS ORDERED: FUROSEMIDE 40 MG/4 ML VIAL IV ONE ×3 (07:30→18:08)
[2021-12-11] MEDS ORDERED: FUROSEMIDE INJ 160 MG in SODIUM CHLORIDE 0.9% 50 ML IV ONE (09:30)
[2021-12-11] MEDS: ASCORBIC ACID 500 MG TABLET PO SCH ×2 (10:24→21:00)
[2021-12-11] MEDS: CHOLECALCIFEROL 1,000 UNIT TABLET PO SCH (10:24)
[2021-12-11] MEDS: ZINC GLUCONATE 50 MG TABLET PO SCH (10:25)
[2021-12-11] MEDS: INSULIN REGULAR 100 UNIT/ML SUBCUT SCH ×4 (10:25→21:01)
[2021-12-11] MEDS: PANTOPRAZOLE 40 MG VIAL IV SCH (10:25)
[2021-12-11] MEDS: CETIRIZINE 10 MG TABLET PO SCH (10:25)
[2021-12-11] MEDS: BARICITINIB 2 MG TABLET PO SCH (10:25)
[2021-12-11] MEDS: SODIUM ZIRCONIUM CYCLOSILICATE 10 GM PACK PO SCH ×3 (10:27→20:59)
[2021-12-11] MEDS: AZITHROMYCIN INJ 500 MG in SODIUM CHLORIDE 0.9% 250 ML IV SCH (10:27)
[2021-12-11] MEDS: FLUTICASONE 50 MCG NASAL SPRAY 16 GM BOTTLE BOTH NARES SCH ×2 (11:27→21:00)
[2021-12-11] MEDS: guaiFENesin/CODEINE 5 ML LIQUID PO PRN ×2 (17:19→22:09)
[2021-12-12 00:41] LABS: Hematocrit 28.6 VOL% (35.7-47.0); Hemoglobin 9.1 GM/DL (12.0-16.0)
[2021-12-12 00:59] LABS: INR 1.1; PT Patient Result 12.4 SECS (10.5-12.0); Partial Thromboplastin Time 26.1 SECS (23.8-32.1)
[2021-12-12] MEDS: ALBUTEROL/IPRATROPIUM 3 ML NEB RESP TX SCH ×4 (01:50→18:24)
[2021-12-12] MEDS: methylPREDNISolone SOD SUC 40 MG/1 ML VIAL IV SCH ×4 (03:26→20:06)
[2021-12-12 04:07] LABS: Basophils % 0.2 % (0.0-0.8); Calcium 7.6 MG/DL (8.5-10.1); Hematocrit 37.3 VOL% (35.7-47.0); Immature Granulocytes % 4.7 %; Immature Granulocytes Absolute 0.51 #; Lymphocytes # 0.2 10*3/uL (1.4-4.0); Lymphocytes % 1.8 % (21.3-54.2); Mean Corpuscular HGB Conc 31.6 GM/DL (32-36); Mean Corpuscular Volume 93.3 FL (87-102); Mean Platelet Volume 9.6 FL (9.6-12.0); Monocytes % 4.1 % (1.7-12.7); NRBC # 0.03 10*3/uL; Neutrophils % 89.2 % (38.7-73.9); Osmolality,Calculated 328.1 MOS/KG (273-304); Potassium 5.4 MMOL/L (3.5-5.1); Red Cell Distribution Width 17.6 % (9.3-17.3)
[2021-12-12 04:08] LABS: Hemoglobin 11.8 GM/DL (12.0-16.0)
[2021-12-12 04:09] LABS: Platelet Count 340 T/CUMM (130-400); White Blood Count 10.8 T/CUMM (4-12)
[2021-12-12 04:21] LABS: Lymphocytes 1 % (20-55); Platelet Estimate Adequate; Segmented Neutrophils 95 % (50-85); Total Cells Counted 100
[2021-12-12 05:09] LABS: ABG Base Excess 3.2 MMOL/L (-2.5-2.5); ABG HCO3 27.2 MMOL/L (20-26); ABG Oxygen Saturation 96.6 % (95-100); ABG PH 7.338 (7.35-7.45); ABG PO2 88.2 MM HG (80-95); ABG TCO2 27.6 MMOL/L (23-27)
[2021-12-12] MEDS: MEROPENEM 500 MG in SODIUM CHLORIDE 0.9% 100 ML IV SCH ×2 (05:31→17:02)
[2021-12-12] MEDS: SODIUM ZIRCONIUM CYCLOSILICATE 10 GM PACK PO SCH ×2 (08:38→17:57)
[2021-12-12] MEDS: PANTOPRAZOLE 40 MG VIAL IV SCH (08:39)
[2021-12-12] MEDS: INSULIN REGULAR 100 UNIT/ML SUBCUT SCH ×4 (08:39→20:05)
[2021-12-12] MEDS: ASCORBIC ACID 500 MG TABLET PO SCH ×2 (08:43→20:06)
[2021-12-12] MEDS: CETIRIZINE 10 MG TABLET PO SCH (08:44)
[2021-12-12] MEDS: BARICITINIB 2 MG TABLET PO SCH (08:44)
[2021-12-12] MEDS: ZINC GLUCONATE 50 MG TABLET PO SCH (08:44)
[2021-12-12] MEDS: CHOLECALCIFEROL 1,000 UNIT TABLET PO SCH (08:44)
[2021-12-12] MEDS: AZITHROMYCIN INJ 500 MG in SODIUM CHLORIDE 0.9% 250 ML IV SCH (09:36)
[2021-12-12] MEDS: FUROSEMIDE INJ 160 MG in SODIUM CHLORIDE 0.9% 50 ML IV SCH ×2 (09:36→16:51)
[2021-12-12] MEDS: metOLazone 5 MG TABLET PO SCH (09:59)
[2021-12-12] MEDS: guaiFENesin/CODEINE 5 ML LIQUID PO PRN ×2 (10:06→20:04)
[2021-12-12] MEDS: FLUTICASONE 50 MCG NASAL SPRAY 16 GM BOTTLE BOTH NARES SCH ×2 (10:19→20:20)
[2021-12-12] MEDS ORDERED: FUROSEMIDE 40 MG/4 ML VIAL IV SCH (16:00)
[2021-12-12] MEDS ORDERED: INSULIN GLARGINE 100 UNIT/ML SUBCUT SCH (21:00)
[2021-12-12] MEDS: MORPHINE 2 MG/1 ML SYRINGE IV PRN (22:50)
[2021-12-13] MEDS: ALBUTEROL/IPRATROPIUM 3 ML NEB RESP TX SCH ×4 (01:38→20:53)
[2021-12-13] MEDS: methylPREDNISolone SOD SUC 40 MG/1 ML VIAL IV SCH ×4 (02:52→20:44)
[2021-12-13 04:42] LABS: Basophils % 0.1 % (0.0-0.8); Hematocrit 31.6 VOL% (35.7-47.0); Immature Granulocytes % 3.8 %; Immature Granulocytes Absolute 0.63 #; Lymphocytes # 0.2 10*3/uL (1.4-4.0); Lymphocytes % 1.3 % (21.3-54.2); Mean Corpuscular Volume 92.1 FL (87-102); Mean Platelet Volume 9.7 FL (9.6-12.0); Monocytes % 4.4 % (1.7-12.7); NRBC # 0.02 10*3/uL; Neutrophils % 90.4 % (38.7-73.9); Platelet Count 408 T/CUMM (130-400); Red Blood Count 3.43 MC/CUMM (3.8-5.5); Red Cell Distribution Width 17.2 % (9.3-17.3)
[2021-12-13 04:43] LABS: Hemoglobin 9.8 GM/DL (12.0-16.0); White Blood Count 16.4 T/CUMM (4-12)
[2021-12-13 04:58] LABS: Band Neutrophils 1 % (0-10); Hypochromia 1+; Lymphocytes 3 % (20-55); Microcytosis 1+; Platelet Estimate Adequate; Segmented Neutrophils 92 % (50-85); Total Cells Counted 100
[2021-12-13 05:02] LABS: Calcium 7.7 MG/DL (8.5-10.1); Osmolality,Calculated 337.5 MOS/KG (273-304)
[2021-12-13 05:32] LABS: ABG Base Excess 5.3 MMOL/L (-2.5-2.5); ABG HCO3 31.4 MMOL/L (20-26); ABG PCO2 54.6 MM HG (35-48); ABG PH 7.378 (7.35-7.45); ABG PO2 94.3 MM HG (80-95); ABG TCO2 33.1 MMOL/L (23-27)
[2021-12-13] MEDS: MEROPENEM 500 MG in SODIUM CHLORIDE 0.9% 100 ML IV SCH ×2 (05:40→17:33)
[2021-12-13] MEDS ORDERED: LIDOCAINE 2% VISCOUS 100 ML BOTTLE SWISH/SPIT ONE (07:45)
[2021-12-13] MEDS ORDERED: LIDOCAINE 2% 20 ML VIAL RESP TX ONE (07:45)
[2021-12-13] MEDS ORDERED: MIDAZOLAM 2 MG/2 ML VIAL IV ONE (07:45)
[2021-12-13] MEDS ORDERED: LIDOCAINE 1% 20 ML VIAL MISC INJ ONE (07:45)
[2021-12-13] MEDS: PANTOPRAZOLE 40 MG VIAL IV SCH (08:59)
[2021-12-13] MEDS: INSULIN REGULAR 100 UNIT/ML SUBCUT SCH ×4 (09:00→20:44)
[2021-12-13] MEDS: BARICITINIB 2 MG TABLET PO SCH (09:00)
[2021-12-13] MEDS: ZINC GLUCONATE 50 MG TABLET PO SCH (09:01)
[2021-12-13] MEDS: ASCORBIC ACID 500 MG TABLET PO SCH ×2 (09:01→20:44)
[2021-12-13] MEDS: metOLazone 5 MG TABLET PO SCH (09:01)
[2021-12-13] MEDS: CETIRIZINE 10 MG TABLET PO SCH (09:01)
[2021-12-13] MEDS: CHOLECALCIFEROL 1,000 UNIT TABLET PO SCH (09:01)
[2021-12-13] MEDS: AZITHROMYCIN INJ 500 MG in SODIUM CHLORIDE 0.9% 250 ML IV SCH (09:02)
[2021-12-13] MEDS: FLUTICASONE 50 MCG NASAL SPRAY 16 GM BOTTLE BOTH NARES SCH ×2 (09:02→21:47)
[2021-12-13] MEDS: FUROSEMIDE INJ 160 MG in SODIUM CHLORIDE 0.9% 50 ML IV SCH ×2 (09:02→15:57)
[2021-12-13] MEDS: INSULIN GLARGINE 100 UNIT/ML SUBCUT SCH (20:44)
[2021-12-14] MEDS: methylPREDNISolone SOD SUC 40 MG/1 ML VIAL IV SCH ×4 (03:14→20:03)
[2021-12-14 04:49] LABS: Basophils % 0.1 % (0.0-0.8); Hematocrit 29.6 VOL% (35.7-47.0); Hemoglobin 9.3 GM/DL (12.0-16.0); Immature Granulocytes Absolute 0.29 #; Lymphocytes # 0.2 10*3/uL (1.4-4.0); Lymphocytes % 1.1 % (21.3-54.2); Mean Corpuscular HGB Conc 31.4 GM/DL (32-36); Mean Corpuscular Volume 91.4 FL (87-102); Mean Platelet Volume 9.7 FL (9.6-12.0); Monocytes % 3.7 % (1.7-12.7); Neutrophils % 93.1 % (38.7-73.9); Platelet Count 340 T/CUMM (130-400); Red Blood Count 3.24 MC/CUMM (3.8-5.5); Red Cell Distribution Width 16.9 % (9.3-17.3); White Blood Count 14.3 T/CUMM (4-12)
[2021-12-14] MEDS: ALBUTEROL/IPRATROPIUM 3 ML NEB RESP TX SCH ×4 (04:59→20:18)
[2021-12-14 05:09] LABS: Band Neutrophils 1 % (0-10); Hypochromia 1+; Lymphocytes 2 % (20-55); Microcytosis 1+; Platelet Estimate Adequate; Segmented Neutrophils 94 % (50-85); Total Cells Counted 100
[2021-12-14 05:15] LABS: Calcium 8.1 MG/DL (8.5-10.1); Osmolality,Calculated 333.4 MOS/KG (273-304); Potassium 4.4 MMOL/L (3.5-5.1)
[2021-12-14] MEDS: MEROPENEM 500 MG in SODIUM CHLORIDE 0.9% 100 ML IV SCH ×2 (05:34→17:08)
[2021-12-14] MEDS: INSULIN REGULAR 100 UNIT/ML SUBCUT SCH ×4 (08:11→20:02)
[2021-12-14] MEDS: BARICITINIB 2 MG TABLET PO SCH (08:12)
[2021-12-14] MEDS: metOLazone 5 MG TABLET PO SCH (08:12)
[2021-12-14] MEDS: CETIRIZINE 10 MG TABLET PO SCH (08:12)
[2021-12-14] MEDS: PANTOPRAZOLE 40 MG VIAL IV SCH (08:12)
[2021-12-14] MEDS: ZINC GLUCONATE 50 MG TABLET PO SCH (08:13)
[2021-12-14] MEDS: CHOLECALCIFEROL 1,000 UNIT TABLET PO SCH (08:13)
[2021-12-14] MEDS: ASCORBIC ACID 500 MG TABLET PO SCH ×2 (08:13→20:02)
[2021-12-14] MEDS: FLUTICASONE 50 MCG NASAL SPRAY 16 GM BOTTLE BOTH NARES SCH ×2 (08:14→20:10)
[2021-12-14] MEDS: FUROSEMIDE INJ 160 MG in SODIUM CHLORIDE 0.9% 50 ML IV SCH (08:15)
[2021-12-14] MEDS: AZITHROMYCIN INJ 500 MG in SODIUM CHLORIDE 0.9% 250 ML IV SCH (09:33)
[2021-12-14] MEDS: DIAZEPAM 10 MG/2 ML SYRINGE IV PRN (11:50)
[2021-12-14] MEDS: SODIUM CHLORIDE 0.9% IV SCH (16:53)
[2021-12-14] MEDS: FUROSEMIDE IV SCH (16:53)
[2021-12-14] MEDS: INSULIN GLARGINE 100 UNIT/ML SUBCUT SCH (20:03)
[2021-12-15] MEDS: ALBUTEROL/IPRATROPIUM 3 ML NEB RESP TX SCH ×4 (00:20→19:09)
[2021-12-15] MEDS: methylPREDNISolone SOD SUC 40 MG/1 ML VIAL IV SCH ×2 (03:42→10:24)
[2021-12-15 05:23] LABS: Basophils % 0.1 % (0.0-0.8); Hematocrit 31.7 VOL% (35.7-47.0); Immature Granulocytes % 1.8 %; Immature Granulocytes Absolute 0.29 #; Lymphocytes # 0.1 10*3/uL (1.4-4.0); Lymphocytes % 0.9 % (21.3-54.2); Mean Corpuscular HGB Conc 31.5 GM/DL (32-36); Mean Corpuscular Volume 91.6 FL (87-102); Mean Platelet Volume 10.3 FL (9.6-12.0); Neutrophils % 92.2 % (38.7-73.9); Platelet Count 363 T/CUMM (130-400); Red Blood Count 3.46 MC/CUMM (3.8-5.5); White Blood Count 15.9 T/CUMM (4-12)
[2021-12-15 05:44] LABS: Hypochromia 1+; Lymphocytes 2 % (20-55); Microcytosis 1+; Nucleated Red Blood Cells 1 (0-5); Platelet Estimate Adequate; Segmented Neutrophils 90 % (50-85); Total Cells Counted 100
[2021-12-15 06:00] LABS: Calcium 8.5 MG/DL (8.5-10.1); Osmolality,Calculated 339.4 MOS/KG (273-304); Potassium 4.2 MMOL/L (3.5-5.1)
[2021-12-15] MEDS: MEROPENEM 500 MG in SODIUM CHLORIDE 0.9% 100 ML IV SCH (06:10)
[2021-12-15] MEDS: CHOLECALCIFEROL 1,000 UNIT TABLET PO SCH (10:22)
[2021-12-15] MEDS: metOLazone 5 MG TABLET PO SCH (10:23)
[2021-12-15] MEDS: CETIRIZINE 10 MG TABLET PO SCH (10:23)
[2021-12-15] MEDS: ASCORBIC ACID 500 MG TABLET PO SCH ×2 (10:23→20:15)
[2021-12-15] MEDS: ZINC GLUCONATE 50 MG TABLET PO SCH (10:23)
[2021-12-15] MEDS: BARICITINIB 2 MG TABLET PO SCH (10:23)
[2021-12-15] MEDS: PANTOPRAZOLE 40 MG VIAL IV SCH ×3 (10:24→22:00)
[2021-12-15] MEDS: INSULIN REGULAR 100 UNIT/ML SUBCUT SCH ×4 (10:24→20:14)
[2021-12-15] MEDS: FLUTICASONE 50 MCG NASAL SPRAY 16 GM BOTTLE BOTH NARES SCH ×2 (10:41→20:15)
[2021-12-15] MEDS: ACETAMINOPHEN 325 MG TABLET PO PRN (11:08)
[2021-12-15 11:10] LABS: Folate 9.24 NG/ML (5.38-24.0); Vitamin B12 718 PG/ML (211-911)
[2021-12-15 11:21] LABS: Basophils % 0.1 % (0.0-0.8); Hematocrit 32.4 VOL% (35.7-47.0); Hemoglobin 10.1 GM/DL (12.0-16.0); Immature Granulocytes % 1.7 %; Lymphocytes # 0.3 10*3/uL (1.4-4.0); Lymphocytes % 1.6 % (21.3-54.2); Mean Corpuscular HGB Conc 31.2 GM/DL (32-36); Mean Corpuscular Volume 92.3 FL (87-102); Mean Platelet Volume 10.1 FL (9.6-12.0); Neutrophils % 93.6 % (38.7-73.9); Platelet Count 365 T/CUMM (130-400); Red Blood Count 3.51 MC/CUMM (3.8-5.5); Red Cell Distribution Width 17.3 % (9.3-17.3); White Blood Count 17.2 T/CUMM (4-12)
[2021-12-15] MEDS: SODIUM CHLORIDE 0.9% IV SCH ×2 (11:29→16:16)
[2021-12-15] MEDS: FUROSEMIDE IV SCH ×2 (11:29→16:16)
[2021-12-15 11:42] LABS: Segmented Neutrophils 97 % (50-85); Total Cells Counted 100
[2021-12-15 11:43] LABS: Hypochromia 1+; Microcytosis 1+
[2021-12-15 11:44] LABS: Platelet Estimate Normal; Polychromasia Slight
[2021-12-15 12:08] LABS: Sedimentation Rate-Westergren 56 MM/HR (0-30)
[2021-12-15] MEDS: MORPHINE 2 MG/1 ML SYRINGE IV PRN ×2 (13:56→20:17)
[2021-12-15] MEDS ORDERED: methylPREDNISolone SOD SUC 40 MG/1 ML VIAL IV SCH (18:30)
[2021-12-15 18:36] LABS: Hematocrit 29.9 VOL% (35.7-47.0); Hemoglobin 9.5 GM/DL (12.0-16.0)
[2021-12-15] MEDS: INSULIN GLARGINE 100 UNIT/ML SUBCUT SCH (20:14)
[2021-12-15] MEDS: MELATONIN 3 MG TABLET PO PRN (22:21)
[2021-12-15] MEDS ORDERED: FUROSEMIDE 40 MG/4 ML VIAL IV ONE (23:03)
[2021-12-16] MEDS: INSULIN REGULAR 100 UNIT/ML SUBCUT SCH ×5 (01:01→20:42)
[2021-12-16] MEDS: methylPREDNISolone SOD SUC 40 MG/1 ML VIAL IV SCH ×3 (02:58→20:44)
[2021-12-16 05:43] LABS: Basophils % 0.1 % (0.0-0.8); Hematocrit 30.4 VOL% (35.7-47.0); Hemoglobin 9.5 GM/DL (12.0-16.0); Immature Granulocytes % 1.6 %; Immature Granulocytes Absolute 0.24 #; Lymphocytes # 0.1 10*3/uL (1.4-4.0); Lymphocytes % 0.7 % (21.3-54.2); Mean Corpuscular HGB Conc 31.3 GM/DL (32-36); Mean Corpuscular Volume 94.1 FL (87-102); Mean Platelet Volume 10.5 FL (9.6-12.0); Monocytes % 6.6 % (1.7-12.7); Platelet Count 304 T/CUMM (130-400); Red Blood Count 3.23 MC/CUMM (3.8-5.5); Red Cell Distribution Width 17.2 % (9.3-17.3); White Blood Count 14.9 T/CUMM (4-12)
[2021-12-16 06:03] LABS: Calcium 8.5 MG/DL (8.5-10.1); Osmolality,Calculated 343.5 MOS/KG (273-304); Potassium 4.5 MMOL/L (3.5-5.1)
[2021-12-16 06:21] LABS: Anisocytosis 1+; Lymphocytes 2 % (20-55); Platelet Estimate Normal; Segmented Neutrophils 91 % (50-85); Total Cells Counted 100
[2021-12-16] MEDS: ALBUTEROL/IPRATROPIUM 3 ML NEB RESP TX SCH ×4 (07:12→18:33)
[2021-12-16] MEDS: BARICITINIB 2 MG TABLET PO SCH (08:53)
[2021-12-16] MEDS: ZINC GLUCONATE 50 MG TABLET PO SCH (08:53)
[2021-12-16] MEDS: CHOLECALCIFEROL 1,000 UNIT TABLET PO SCH (08:54)
[2021-12-16] MEDS: metOLazone 5 MG TABLET PO SCH (08:54)
[2021-12-16] MEDS: CETIRIZINE 10 MG TABLET PO SCH (08:54)
[2021-12-16] MEDS: ASCORBIC ACID 500 MG TABLET PO SCH ×2 (08:54→20:43)
[2021-12-16 09:27] LABS: Hemoglobin A1 (Alkaline) 98.3 % (96.5-98.5); Hemoglobin A2 (Alkaline) 1.7 % (1.5-3.5)
[2021-12-16] MEDS: SODIUM CHLORIDE 0.9% IV SCH ×2 (09:34→16:40)
[2021-12-16] MEDS: FLUTICASONE 50 MCG NASAL SPRAY 16 GM BOTTLE BOTH NARES SCH ×2 (09:34→20:43)
[2021-12-16] MEDS: FUROSEMIDE IV SCH ×2 (09:34→16:40)
[2021-12-16] MEDS: PANTOPRAZOLE 40 MG VIAL IV SCH ×2 (13:21→23:16)
[2021-12-16] MEDS: INSULIN GLARGINE 100 UNIT/ML SUBCUT SCH (20:43)
[2021-12-16] MEDS: MELATONIN 3 MG TABLET PO PRN (21:42)
[2021-12-17] MEDS: ALBUTEROL/IPRATROPIUM 3 ML NEB RESP TX SCH ×4 (01:08→19:07)
[2021-12-17] MEDS: ACETAMINOPHEN 325 MG TABLET PO PRN (05:06)
[2021-12-17] MEDS: SIMVASTATIN 20 MG TABLET PO SCH (05:06)
[2021-12-17 05:21] LABS: Basophils % 0.1 % (0.0-0.8); Hematocrit 30.7 VOL% (35.7-47.0); Hemoglobin 9.6 GM/DL (12.0-16.0); Immature Granulocytes % 0.9 %; Immature Granulocytes Absolute 0.17 #; Lymphocytes # 0.1 10*3/uL (1.4-4.0); Lymphocytes % 0.5 % (21.3-54.2); Mean Corpuscular HGB Conc 31.3 GM/DL (32-36); Mean Corpuscular Volume 93.3 FL (87-102); Mean Platelet Volume 10.7 FL (9.6-12.0); Monocytes % 4.6 % (1.7-12.7); Neutrophils % 93.9 % (38.7-73.9); Platelet Count 262 T/CUMM (130-400); Red Blood Count 3.29 MC/CUMM (3.8-5.5); Red Cell Distribution Width 17.3 % (9.3-17.3); White Blood Count 19.3 T/CUMM (4-12)
[2021-12-17 05:39] LABS: Calcium 8.1 MG/DL (8.5-10.1); Osmolality,Calculated 345.1 MOS/KG (273-304); Potassium 4.3 MMOL/L (3.5-5.1)
[2021-12-17 06:32] LABS: Lymphocytes 2 % (20-55); Segmented Neutrophils 95 % (50-85); Total Cells Counted 100
[2021-12-17 06:33] LABS: Anisocytosis 1+; Hypochromia 1+; Microcytosis 1+; Ovalocytes Slight
[2021-12-17 06:34] LABS: Platelet Estimate Normal
[2021-12-17] MEDS: BARICITINIB 2 MG TABLET PO SCH (09:14)
[2021-12-17] MEDS: ASCORBIC ACID 500 MG TABLET PO SCH ×2 (09:14→21:32)
[2021-12-17] MEDS: SODIUM CHLORIDE 0.9% IV SCH ×2 (09:14→16:56)
[2021-12-17] MEDS: FUROSEMIDE IV SCH ×2 (09:14→16:56)
[2021-12-17] MEDS: ZINC GLUCONATE 50 MG TABLET PO SCH (09:15)
[2021-12-17] MEDS: CHOLECALCIFEROL 1,000 UNIT TABLET PO SCH (09:15)
[2021-12-17] MEDS: FLUTICASONE 50 MCG NASAL SPRAY 16 GM BOTTLE BOTH NARES SCH ×2 (09:16→21:40)
[2021-12-17] MEDS: CETIRIZINE 10 MG TABLET PO SCH (09:16)
[2021-12-17] MEDS: metOLazone 5 MG TABLET PO SCH (09:16)
[2021-12-17] MEDS: INSULIN REGULAR 100 UNIT/ML SUBCUT SCH ×4 (09:17→21:32)
[2021-12-17] MEDS: methylPREDNISolone SOD SUC 40 MG/1 ML VIAL IV SCH ×2 (09:17→21:32)
[2021-12-17] MEDS ORDERED: MAGNESIUM CITRATE 300 ML BOTTLE PO ONE (10:02)
[2021-12-17] MEDS: PANTOPRAZOLE 40 MG VIAL IV SCH ×2 (11:25→23:57)
[2021-12-17] MEDS: ONDANSETRON 4 MG/2 ML VIAL IV PRN (12:03)
[2021-12-17] MEDS: FLUCONAZOLE INJ 200 MG/100 ML PREMIX IV SCH (15:51)
[2021-12-17 16:40] LABS: Bacteria,Urine Moderate /HPF (Few); Bilirubin,Urine Negative (Negative); Blood, Urine Small mg/dL (Negative); Glucose,Urine (UA) Negative (Negative); Ketones,Urine Negative (Negative); Nitrite,Urine Negative (Negative); Protein,Urine Negative; RBC,Urine 42 /HPF (0-4); Squamous Epithelial Cell,Urine Occasional /HPF (0-10); Urine Appearance CLOUDY (Clear); Urine Color Yellow (Yellow); Urine Urobilinogen < 2.0 EU/DL (<2.0)
[2021-12-17] MEDS: INSULIN GLARGINE 100 UNIT/ML SUBCUT SCH (21:32)
[2021-12-17] MEDS: SERTRALINE 25 MG TABLET PO SCH (21:32)
[2021-12-17] MEDS: MONTELUKAST 10 MG TABLET PO SCH (21:32)
[2021-12-17] MEDS: MELATONIN 3 MG TABLET PO PRN (21:40)
[2021-12-18] MEDS: ALBUTEROL/IPRATROPIUM 3 ML NEB RESP TX SCH ×4 (00:40→19:20)
[2021-12-18] MEDS: LEVOTHYROXINE 75 MCG TABLET PO SCH (06:02)
[2021-12-18 06:16] LABS: Calcium 8.8 MG/DL (8.5-10.1); Osmolality,Calculated 349.4 MOS/KG (273-304); Potassium 4.3 MMOL/L (3.5-5.1)
[2021-12-18 09:03] LABS: Hematocrit 29.5 VOL% (35.7-47.0); Hemoglobin 9.2 GM/DL (12.0-16.0); Immature Granulocytes % 0.9 %; Immature Granulocytes Absolute 0.19 #; Lymphocytes # 0.1 10*3/uL (1.4-4.0); Lymphocytes % 0.4 % (21.3-54.2); Mean Corpuscular HGB Conc 31.2 GM/DL (32-36); Mean Corpuscular Volume 93.1 FL (87-102); Mean Platelet Volume 10.7 FL (9.6-12.0); Monocytes % 2.6 % (1.7-12.7); Neutrophils % 96.1 % (38.7-73.9); Platelet Count 229 T/CUMM (130-400); Red Blood Count 3.17 MC/CUMM (3.8-5.5); Red Cell Distribution Width 17.1 % (9.3-17.3); White Blood Count 21.2 T/CUMM (4-12)
[2021-12-18] MEDS: INSULIN REGULAR 100 UNIT/ML SUBCUT SCH ×4 (09:26→21:29)
[2021-12-18] MEDS: ASCORBIC ACID 500 MG TABLET PO SCH ×2 (09:27→21:29)
[2021-12-18] MEDS: metOLazone 5 MG TABLET PO SCH (09:27)
[2021-12-18] MEDS: BARICITINIB 2 MG TABLET PO SCH (09:27)
[2021-12-18] MEDS: methylPREDNISolone SOD SUC 40 MG/1 ML VIAL IV SCH ×2 (09:27→21:29)
[2021-12-18] MEDS: CETIRIZINE 10 MG TABLET PO SCH (09:27)
[2021-12-18] MEDS: ZINC GLUCONATE 50 MG TABLET PO SCH (09:28)
[2021-12-18] MEDS: CHOLECALCIFEROL 1,000 UNIT TABLET PO SCH (09:28)
[2021-12-18 09:29] LABS: Band Neutrophils 1 % (0-10); Platelet Estimate Normal; Segmented Neutrophils 99 % (50-85); Total Cells Counted 100
[2021-12-18] MEDS: FLUTICASONE 50 MCG NASAL SPRAY 16 GM BOTTLE BOTH NARES SCH ×2 (09:29→21:29)
[2021-12-18 09:30] LABS: Anisocytosis 1+; Basophilic Stippling Slight; Hypochromia Slight; Macrocytosis Slight; Smudge Cells Few
[2021-12-18] MEDS: SODIUM CHLORIDE 0.9% IV SCH ×2 (09:36→16:36)
[2021-12-18] MEDS: FUROSEMIDE IV SCH ×2 (09:36→16:36)
[2021-12-18] MEDS: ALPRAZolam 0.25 MG TABLET PO PRN (11:10)
[2021-12-18] MEDS: PANTOPRAZOLE 40 MG VIAL IV SCH ×2 (11:10→23:54)
[2021-12-18] MEDS: FLUCONAZOLE INJ 200 MG/100 ML PREMIX IV SCH (16:35)
[2021-12-18] MEDS: SERTRALINE 25 MG TABLET PO SCH (21:29)
[2021-12-18] MEDS: INSULIN GLARGINE 100 UNIT/ML SUBCUT SCH (21:29)
[2021-12-18] MEDS: MONTELUKAST 10 MG TABLET PO SCH (21:29)
[2021-12-18] MEDS: MELATONIN 3 MG TABLET PO PRN (21:30)
[2021-12-19] MEDS: ALBUTEROL/IPRATROPIUM 3 ML NEB RESP TX SCH ×4 (01:00→19:48)
[2021-12-19] MEDS: LEVOTHYROXINE 75 MCG TABLET PO SCH (05:59)
[2021-12-19] MEDS: SIMVASTATIN 20 MG TABLET PO SCH (05:59)
[2021-12-19 08:48] LABS: Basophils % 0.1 % (0.0-0.8); Hemoglobin 9.4 GM/DL (12.0-16.0); Immature Granulocytes % 0.7 %; Immature Granulocytes Absolute 0.16 #; Lymphocytes # 0.1 10*3/uL (1.4-4.0); Lymphocytes % 0.5 % (21.3-54.2); Mean Corpuscular HGB Conc 31.3 GM/DL (32-36); Mean Corpuscular Volume 93.5 FL (87-102); Mean Platelet Volume 11.8 FL (9.6-12.0); Neutrophils % 95.7 % (38.7-73.9); Platelet Count 220 T/CUMM (130-400); Red Blood Count 3.21 MC/CUMM (3.8-5.5); Red Cell Distribution Width 17.1 % (9.3-17.3); White Blood Count 22.7 T/CUMM (4-12)
[2021-12-19 09:02] LABS: Calcium 8.8 MG/DL (8.5-10.1); Osmolality,Calculated 347.5 MOS/KG (273-304); Potassium 3.9 MMOL/L (3.5-5.1)
[2021-12-19] MEDS: BARICITINIB 2 MG TABLET PO SCH (09:29)
[2021-12-19] MEDS: CETIRIZINE 10 MG TABLET PO SCH (09:30)
[2021-12-19] MEDS: ASCORBIC ACID 500 MG TABLET PO SCH ×2 (09:30→21:37)
[2021-12-19] MEDS: metOLazone 5 MG TABLET PO SCH (09:30)
[2021-12-19] MEDS: CHOLECALCIFEROL 1,000 UNIT TABLET PO SCH (09:31)
[2021-12-19] MEDS: methylPREDNISolone SOD SUC 40 MG/1 ML VIAL IV SCH (09:31)
[2021-12-19] MEDS: FLUTICASONE 50 MCG NASAL SPRAY 16 GM BOTTLE BOTH NARES SCH ×2 (09:32→21:38)
[2021-12-19] MEDS: FUROSEMIDE IV SCH ×2 (09:32→16:15)
[2021-12-19] MEDS: SODIUM CHLORIDE 0.9% IV SCH ×2 (09:32→16:15)
[2021-12-19 09:39] LABS: Anisocytosis 1+; Band Neutrophils 1 % (0-10); Macrocytosis Slight; Ovalocytes Few; Platelet Estimate Normal; Segmented Neutrophils 97 % (50-85); Total Cells Counted 100
[2021-12-19] MEDS: ZINC GLUCONATE 50 MG TABLET PO SCH (09:40)
[2021-12-19] MEDS: INSULIN REGULAR 100 UNIT/ML SUBCUT SCH ×4 (09:40→21:37)
[2021-12-19] MEDS: PANTOPRAZOLE 40 MG VIAL IV SCH (12:12)
[2021-12-19] MEDS: FLUCONAZOLE INJ 200 MG/100 ML PREMIX IV SCH (16:15)
[2021-12-19] MEDS ORDERED: AMINO ACIDS/DEXT/LYTES 5-15% 2,000 ML IV SCH (17:00)
[2021-12-19] MEDS: SERTRALINE 25 MG TABLET PO SCH (21:37)
[2021-12-19] MEDS: MELATONIN 3 MG TABLET PO PRN (21:37)
[2021-12-19] MEDS: INSULIN GLARGINE 100 UNIT/ML SUBCUT SCH (21:37)
[2021-12-19] MEDS: MONTELUKAST 10 MG TABLET PO SCH (21:38)
[2021-12-20] MEDS: PANTOPRAZOLE 40 MG VIAL IV SCH ×3 (00:28→23:18)
[2021-12-20] MEDS: ALPRAZolam 0.25 MG TABLET PO PRN (01:25)
[2021-12-20] MEDS: ALBUTEROL/IPRATROPIUM 3 ML NEB RESP TX SCH ×4 (01:26→19:45)
[2021-12-20] MEDS: LEVOTHYROXINE 75 MCG TABLET PO SCH (05:50)
[2021-12-20 05:55] LABS: Basophils % 0.1 % (0.0-0.8); Hematocrit 28.7 VOL% (35.7-47.0); Immature Granulocytes % 0.7 %; Immature Granulocytes Absolute 0.16 #; Lymphocytes # 0.2 10*3/uL (1.4-4.0); Mean Corpuscular HGB Conc 31.4 GM/DL (32-36); Mean Corpuscular Volume 92.6 FL (87-102); Mean Platelet Volume 11.9 FL (9.6-12.0); Monocytes % 8.4 % (1.7-12.7); Neutrophils % 89.8 % (38.7-73.9); Platelet Count 207 T/CUMM (130-400)
[2021-12-20 06:20] LABS: Calcium 8.8 MG/DL (8.5-10.1); Osmolality,Calculated 344.4 MOS/KG (273-304); Potassium 3.5 MMOL/L (3.5-5.1)
[2021-12-20 06:30] LABS: Hypochromia 1+; Lymphocytes 2 % (20-55); Microcytosis 1+; Platelet Estimate Adequate; Segmented Neutrophils 92 % (50-85); Total Cells Counted 100
[2021-12-20] MEDS: INSULIN REGULAR 100 UNIT/ML SUBCUT SCH ×4 (09:10→23:13)
[2021-12-20] MEDS: CHOLECALCIFEROL 1,000 UNIT TABLET PO SCH (09:33)
[2021-12-20] MEDS: metOLazone 5 MG TABLET PO SCH (09:33)
[2021-12-20] MEDS: CETIRIZINE 10 MG TABLET PO SCH (09:33)
[2021-12-20] MEDS: ASCORBIC ACID 500 MG TABLET PO SCH ×2 (09:33→23:13)
[2021-12-20] MEDS: BARICITINIB 2 MG TABLET PO SCH (09:33)
[2021-12-20] MEDS: methylPREDNISolone SOD SUC 40 MG/1 ML VIAL IV SCH (09:34)
[2021-12-20] MEDS: FLUTICASONE 50 MCG NASAL SPRAY 16 GM BOTTLE BOTH NARES SCH ×2 (09:34→23:13)
[2021-12-20] MEDS: SODIUM CHLORIDE 0.9% IV SCH ×2 (09:52→16:36)
[2021-12-20] MEDS: FUROSEMIDE IV SCH ×2 (09:52→16:36)
[2021-12-20] MEDS: ZINC GLUCONATE 50 MG TABLET PO SCH (10:51)
[2021-12-20] MEDS: FLUCONAZOLE INJ 200 MG/100 ML PREMIX IV SCH (15:23)
[2021-12-20] MEDS ORDERED: INSULIN REGULAR IV SCH (17:00)
[2021-12-20] MEDS ORDERED: [UNRECOGNIZED DRUG - OTHER] IV SCH (17:00)
[2021-12-20] MEDS ORDERED: MULTIVITAMIN IV SCH (17:00)
[2021-12-20] MEDS: MONTELUKAST 10 MG TABLET PO SCH (23:13)
[2021-12-20] MEDS: MELATONIN 3 MG TABLET PO PRN (23:13)
[2021-12-20] MEDS: SERTRALINE 25 MG TABLET PO SCH (23:13)
[2021-12-20] MEDS: INSULIN GLARGINE 100 UNIT/ML SUBCUT SCH (23:14)
[2021-12-21] MEDS: ALBUTEROL/IPRATROPIUM 3 ML NEB RESP TX SCH ×4 (00:48→19:43)
[2021-12-21] MEDS: ALPRAZolam 0.25 MG TABLET PO PRN ×2 (04:53→20:40)
[2021-12-21 05:30] LABS: Calcium 8.5 MG/DL (8.5-10.1); Osmolality,Calculated 348.1 MOS/KG (273-304); Potassium 3.2 MMOL/L (3.5-5.1)
[2021-12-21] MEDS: SIMVASTATIN 20 MG TABLET PO SCH (06:14)
[2021-12-21] MEDS: LEVOTHYROXINE 75 MCG TABLET PO SCH (06:14)
[2021-12-21 07:33] LABS: Basophils % 0.1 % (0.0-0.8); Hematocrit 29.8 VOL% (35.7-47.0); Immature Granulocytes % 0.6 %; Lymphocytes # 0.2 10*3/uL (1.4-4.0); Mean Corpuscular HGB Conc 30.2 GM/DL (32-36); Mean Corpuscular Volume 95.5 FL (87-102); Mean Platelet Volume 12.7 FL (9.6-12.0); Neutrophils % 90.3 % (38.7-73.9); Platelet Count 176 T/CUMM (130-400); Red Blood Count 3.12 MC/CUMM (3.8-5.5); Red Cell Distribution Width 17.2 % (9.3-17.3); White Blood Count 15.8 T/CUMM (4-12)
[2021-12-21 07:55] LABS: Lymphocytes 1 % (20-55); Segmented Neutrophils 92 % (50-85); Total Cells Counted 100
[2021-12-21 07:56] LABS: Hypochromia 1+; Microcytosis 1+; Platelet Estimate Adequate
[2021-12-21] MEDS: methylPREDNISolone SOD SUC 40 MG/1 ML VIAL IV SCH (09:08)
[2021-12-21] MEDS: FUROSEMIDE IV SCH ×2 (09:08→15:20)
[2021-12-21] MEDS: SODIUM CHLORIDE 0.9% IV SCH ×2 (09:08→15:20)
[2021-12-21] MEDS: INSULIN REGULAR 100 UNIT/ML SUBCUT SCH ×4 (09:08→20:42)
[2021-12-21] MEDS: CHOLECALCIFEROL 1,000 UNIT TABLET PO SCH (09:08)
[2021-12-21] MEDS: metOLazone 5 MG TABLET PO SCH (09:09)
[2021-12-21] MEDS: ASCORBIC ACID 500 MG TABLET PO SCH ×2 (09:09→20:40)
[2021-12-21] MEDS: FLUTICASONE 50 MCG NASAL SPRAY 16 GM BOTTLE BOTH NARES SCH ×2 (09:09→20:43)
[2021-12-21] MEDS: CETIRIZINE 10 MG TABLET PO SCH (09:09)
[2021-12-21] MEDS: ZINC GLUCONATE 50 MG TABLET PO SCH (09:09)
[2021-12-21] MEDS: PANTOPRAZOLE 40 MG VIAL IV SCH ×2 (10:17→22:48)
[2021-12-21 10:29] LABS: Calcium 8.9 MG/DL (8.5-10.1); Osmolality,Calculated 344.1 MOS/KG (273-304); Potassium 3.3 MMOL/L (3.5-5.1)
[2021-12-21] MEDS: BARICITINIB 2 MG TABLET PO SCH (11:10)
[2021-12-21] MEDS: ONDANSETRON 4 MG/2 ML VIAL IV PRN (11:11)
[2021-12-21] MEDS: FLUCONAZOLE INJ 200 MG/100 ML PREMIX IV SCH (14:29)
[2021-12-21] MEDS: SELENIUM IV SCH (17:34)
[2021-12-21] MEDS: COPPER IV SCH (17:34)
[2021-12-21] MEDS: [UNRECOGNIZED DRUG - OTHER] IV SCH (17:34)
[2021-12-21] MEDS: MANGANESE IV SCH (17:34)
[2021-12-21] MEDS: ZINC IV SCH (17:34)
[2021-12-21] MEDS: MULTIVITAMIN IV SCH (17:34)
[2021-12-21] MEDS: MELATONIN 3 MG TABLET PO PRN (20:40)
[2021-12-21] MEDS: MONTELUKAST 10 MG TABLET PO SCH (20:40)
[2021-12-21] MEDS: SERTRALINE 25 MG TABLET PO SCH (20:40)
[2021-12-21] MEDS: INSULIN GLARGINE 100 UNIT/ML SUBCUT SCH (20:42)
[2021-12-22] MEDS: ALBUTEROL/IPRATROPIUM 3 ML NEB RESP TX SCH ×4 (00:12→23:10)
[2021-12-22 05:07] LABS: Basophils % 0.1 % (0.0-0.8); Eosinophils % 0.1 % (0.00-10.9); Hematocrit 28.3 VOL% (35.7-47.0); Hemoglobin 8.6 GM/DL (12.0-16.0); Immature Granulocytes % 0.5 %; Lymphocytes # 0.2 10*3/uL (1.4-4.0); Lymphocytes % 0.9 % (21.3-54.2); Mean Corpuscular HGB Conc 30.4 GM/DL (32-36); Mean Corpuscular Volume 95.3 FL (87-102); Mean Platelet Volume 12.1 FL (9.6-12.0); Monocytes % 8.1 % (1.7-12.7); Neutrophils % 90.3 % (38.7-73.9); Platelet Count 180 T/CUMM (130-400); Red Blood Count 2.97 MC/CUMM (3.8-5.5); Red Cell Distribution Width 17.2 % (9.3-17.3)
[2021-12-22 05:30] LABS: Hypochromia 1+; Lymphocytes 1 % (20-55); Microcytosis 1+; Platelet Estimate Adequate; Segmented Neutrophils 91 % (50-85); Total Cells Counted 100
[2021-12-22 05:33] LABS: Calcium 8.6 MG/DL (8.5-10.1); Calcium 9.1 MG/DL (8.5-10.1); Osmolality,Calculated 343.3 MOS/KG (273-304); Osmolality,Calculated 347.6 MOS/KG (273-304); Potassium 3.3 MMOL/L (3.5-5.1); Potassium 3.4 MMOL/L (3.5-5.1)
[2021-12-22] MEDS: LEVOTHYROXINE 75 MCG TABLET PO SCH (06:57)
[2021-12-22] MEDS: metOLazone 5 MG TABLET PO SCH (10:20)
[2021-12-22] MEDS: CETIRIZINE 10 MG TABLET PO SCH (10:20)
[2021-12-22] MEDS: ZINC GLUCONATE 50 MG TABLET PO SCH (10:20)
[2021-12-22] MEDS: CHOLECALCIFEROL 1,000 UNIT TABLET PO SCH (10:20)
[2021-12-22] MEDS: BARICITINIB 2 MG TABLET PO SCH (10:20)
[2021-12-22] MEDS: ASCORBIC ACID 500 MG TABLET PO SCH ×2 (10:20→21:34)
[2021-12-22] MEDS: methylPREDNISolone SOD SUC 40 MG/1 ML VIAL IV SCH (10:21)
[2021-12-22] MEDS: INSULIN REGULAR 100 UNIT/ML SUBCUT SCH ×4 (10:21→22:00)
[2021-12-22] MEDS: SODIUM CHLORIDE 0.9% IV SCH (10:26)
[2021-12-22] MEDS: FUROSEMIDE IV SCH (10:26)
[2021-12-22] MEDS: FLUTICASONE 50 MCG NASAL SPRAY 16 GM BOTTLE BOTH NARES SCH ×2 (10:29→21:35)
[2021-12-22] MEDS: PANTOPRAZOLE 40 MG VIAL IV SCH ×2 (10:59→22:08)
[2021-12-22] MEDS ORDERED: BISACODYL 10 MG SUPP RECTAL PRN (15:35)
[2021-12-22] MEDS: FLUCONAZOLE INJ 200 MG/100 ML PREMIX IV SCH (17:00)
[2021-12-22] MEDS: [UNRECOGNIZED DRUG - OTHER] IV SCH (18:05)
[2021-12-22] MEDS: ZINC IV SCH (18:05)
[2021-12-22] MEDS: SELENIUM IV SCH (18:05)
[2021-12-22] MEDS: MANGANESE IV SCH (18:05)
[2021-12-22] MEDS: COPPER IV SCH (18:05)
[2021-12-22] MEDS: MULTIVITAMIN IV SCH (18:05)
[2021-12-22] MEDS: ALPRAZolam 0.25 MG TABLET PO PRN (21:33)
[2021-12-22] MEDS: DOCUSATE SODIUM 100 MG/10 ML UDCUP PO SCH (21:34)
[2021-12-22] MEDS: SERTRALINE 25 MG TABLET PO SCH (21:34)
[2021-12-22] MEDS: MONTELUKAST 10 MG TABLET PO SCH (21:34)
[2021-12-22] MEDS: INSULIN GLARGINE 100 UNIT/ML SUBCUT SCH (21:35)
[2021-12-23] MEDS: ALBUTEROL/IPRATROPIUM 3 ML NEB RESP TX SCH ×4 (00:59→19:45)
[2021-12-23] MEDS: ALPRAZolam 0.25 MG TABLET PO PRN ×2 (03:30→21:46)
[2021-12-23] MEDS: LEVOTHYROXINE 75 MCG TABLET PO SCH (05:56)
[2021-12-23] MEDS: SIMVASTATIN 20 MG TABLET PO SCH (05:56)
[2021-12-23 06:34] LABS: Basophils % 0.1 % (0.0-0.8); Hematocrit 26.5 VOL% (35.7-47.0); Hemoglobin 8.2 GM/DL (12.0-16.0); Immature Granulocytes % 0.6 %; Lymphocytes # 0.2 10*3/uL (1.4-4.0); Lymphocytes % 1.2 % (21.3-54.2); Mean Corpuscular HGB Conc 30.9 GM/DL (32-36); Mean Platelet Volume 12.4 FL (9.6-12.0); Monocytes % 6.5 % (1.7-12.7); Neutrophils % 91.6 % (38.7-73.9); Platelet Count 169 T/CUMM (130-400); Red Blood Count 2.82 MC/CUMM (3.8-5.5); Red Cell Distribution Width 17.2 % (9.3-17.3); White Blood Count 15.8 T/CUMM (4-12)
[2021-12-23 06:58] LABS: Lymphocytes 1 % (20-55); Segmented Neutrophils 93 % (50-85); Total Cells Counted 100
[2021-12-23 06:59] LABS: Anisocytosis 1+; Hypochromia 1+; Microcytosis 1+; Platelet Estimate Adequate
[2021-12-23 07:09] LABS: Calcium 8.4 MG/DL (8.5-10.1); Osmolality,Calculated 343.4 MOS/KG (273-304); Potassium 3.2 MMOL/L (3.5-5.1)
[2021-12-23] MEDS: CHOLECALCIFEROL 1,000 UNIT TABLET PO SCH (09:59)
[2021-12-23] MEDS: ASCORBIC ACID 500 MG TABLET PO SCH ×2 (09:59→21:46)
[2021-12-23] MEDS: INSULIN REGULAR 100 UNIT/ML SUBCUT SCH ×4 (09:59→22:13)
[2021-12-23] MEDS: DOCUSATE SODIUM 100 MG/10 ML UDCUP PO SCH ×2 (09:59→21:45)
[2021-12-23] MEDS: FLUTICASONE 50 MCG NASAL SPRAY 16 GM BOTTLE BOTH NARES SCH ×2 (09:59→21:46)
[2021-12-23] MEDS: ZINC GLUCONATE 50 MG TABLET PO SCH (10:00)
[2021-12-23] MEDS: methylPREDNISolone SOD SUC 40 MG/1 ML VIAL IV SCH (10:00)
[2021-12-23] MEDS: metOLazone 5 MG TABLET PO SCH (10:00)
[2021-12-23] MEDS: CETIRIZINE 10 MG TABLET PO SCH (10:00)
[2021-12-23] MEDS: SODIUM CHLORIDE 0.9% IV SCH (10:06)
[2021-12-23] MEDS: FUROSEMIDE IV SCH (10:06)
[2021-12-23] MEDS ORDERED: TUBERCULIN SKIN TEST 0.1 ML SYRINGE INTRADERM ONE (10:39)
[2021-12-23] MEDS: PANTOPRAZOLE 40 MG VIAL IV SCH ×2 (10:41→22:14)
[2021-12-23] MEDS: ONDANSETRON 4 MG/2 ML VIAL IV PRN (10:47)
[2021-12-23 15:00] LABS: Albumin 2.4 G/DL (3.4-5.0); Total Protein 5.2 G/DL (6.4-8.2)
[2021-12-23] MEDS: FLUCONAZOLE INJ 200 MG/100 ML PREMIX IV SCH (17:21)
[2021-12-23] MEDS: SELENIUM IV SCH (18:22)
[2021-12-23] MEDS: ZINC IV SCH (18:22)
[2021-12-23] MEDS: MANGANESE IV SCH (18:22)
[2021-12-23] MEDS: MULTIVITAMIN IV SCH (18:22)
[2021-12-23] MEDS: COPPER IV SCH (18:22)
[2021-12-23] MEDS: [UNRECOGNIZED DRUG - OTHER] IV SCH (18:22)
[2021-12-23] MEDS: SERTRALINE 25 MG TABLET PO SCH (21:46)
[2021-12-23] MEDS: MONTELUKAST 10 MG TABLET PO SCH (21:46)
[2021-12-23] MEDS: INSULIN GLARGINE 100 UNIT/ML SUBCUT SCH (22:13)
[2021-12-24] MEDS: ALBUTEROL/IPRATROPIUM 3 ML NEB RESP TX SCH ×4 (01:00→19:39)
[2021-12-24 05:54] LABS: Basophils % 0.1 % (0.0-0.8); Hematocrit 27.8 VOL% (35.7-47.0); Hemoglobin 8.5 GM/DL (12.0-16.0); Immature Granulocytes % 0.6 %; Immature Granulocytes Absolute 0.11 #; Lymphocytes # 0.2 10*3/uL (1.4-4.0); Lymphocytes % 1.2 % (21.3-54.2); Mean Corpuscular HGB Conc 30.6 GM/DL (32-36); Mean Corpuscular Volume 96.2 FL (87-102); Mean Platelet Volume 11.9 FL (9.6-12.0); Monocytes % 6.4 % (1.7-12.7); Neutrophils % 91.7 % (38.7-73.9); Platelet Count 175 T/CUMM (130-400); Red Blood Count 2.89 MC/CUMM (3.8-5.5); Red Cell Distribution Width 17.4 % (9.3-17.3)
[2021-12-24] MEDS: LEVOTHYROXINE 75 MCG TABLET PO SCH (06:12)
[2021-12-24 06:13] LABS: Calcium 8.5 MG/DL (8.5-10.1); Osmolality,Calculated 345.3 MOS/KG (273-304); Potassium 3.9 MMOL/L (3.5-5.1)
[2021-12-24 06:15] LABS: Hypochromia 1+; Microcytosis 1+; Platelet Estimate Adequate; Segmented Neutrophils 96 % (50-85); Total Cells Counted 100
[2021-12-24] MEDS: CHOLECALCIFEROL 1,000 UNIT TABLET PO SCH (10:08)
[2021-12-24] MEDS: metOLazone 5 MG TABLET PO SCH (10:08)
[2021-12-24] MEDS: ASCORBIC ACID 500 MG TABLET PO SCH ×2 (10:08→21:20)
[2021-12-24] MEDS: CETIRIZINE 10 MG TABLET PO SCH (10:08)
[2021-12-24] MEDS: DOCUSATE SODIUM 100 MG/10 ML UDCUP PO SCH ×2 (10:08→21:20)
[2021-12-24] MEDS: ZINC GLUCONATE 50 MG TABLET PO SCH (10:08)
[2021-12-24] MEDS: methylPREDNISolone SOD SUC 40 MG/1 ML VIAL IV SCH (10:09)
[2021-12-24] MEDS: ONDANSETRON 4 MG/2 ML VIAL IV PRN (10:09)
[2021-12-24] MEDS: PANTOPRAZOLE 40 MG VIAL IV SCH ×2 (10:09→22:47)
[2021-12-24] MEDS: FLUTICASONE 50 MCG NASAL SPRAY 16 GM BOTTLE BOTH NARES SCH ×2 (10:10→21:21)
[2021-12-24] MEDS: FUROSEMIDE IV SCH (10:10)
[2021-12-24] MEDS: SODIUM CHLORIDE 0.9% IV SCH (10:10)
[2021-12-24] MEDS: INSULIN REGULAR 100 UNIT/ML SUBCUT SCH ×4 (10:35→21:22)
[2021-12-24] MEDS: FLUCONAZOLE INJ 200 MG/100 ML PREMIX IV SCH (14:17)
[2021-12-24] MEDS ORDERED: [UNRECOGNIZED DRUG - OTHER] IV SCH (17:00)
[2021-12-24] MEDS ORDERED: COPPER IV SCH (17:00)
[2021-12-24] MEDS ORDERED: SELENIUM IV SCH (17:00)
[2021-12-24] MEDS ORDERED: ZINC IV SCH (17:00)
[2021-12-24] MEDS ORDERED: MANGANESE IV SCH (17:00)
[2021-12-24] MEDS ORDERED: MULTIVITAMIN IV SCH (17:00)
[2021-12-24] MEDS: MONTELUKAST 10 MG TABLET PO SCH (21:20)
[2021-12-24] MEDS: ALPRAZolam 0.25 MG TABLET PO PRN (21:20)
[2021-12-24] MEDS: MELATONIN 3 MG TABLET PO PRN (21:20)
[2021-12-24] MEDS: INSULIN GLARGINE 100 UNIT/ML SUBCUT SCH (21:21)
[2021-12-24] MEDS: SERTRALINE 25 MG TABLET PO SCH (21:21)
[2021-12-25] MEDS: ALBUTEROL/IPRATROPIUM 3 ML NEB RESP TX SCH ×3 (00:08→12:55)
[2021-12-25] MEDS: LEVOTHYROXINE 75 MCG TABLET PO SCH (05:16)
[2021-12-25] MEDS: SIMVASTATIN 20 MG TABLET PO SCH (05:16)
[2021-12-25 05:35] LABS: Basophils % 0.1 % (0.0-0.8); Eosinophils # 0.1 10*3/uL (0.0-0.87); Eosinophils % 0.5 % (0.00-10.9); Hematocrit 27.1 VOL% (35.7-47.0); Immature Granulocytes % 0.5 %; Immature Granulocytes Absolute 0.07 #; Lymphocytes # 0.1 10*3/uL (1.4-4.0); Lymphocytes % 1.1 % (21.3-54.2); Mean Corpuscular HGB Conc 29.5 GM/DL (32-36); Mean Corpuscular Volume 95.4 FL (87-102); Mean Platelet Volume 11.7 FL (9.6-12.0); Monocytes % 7.1 % (1.7-12.7); Neutrophils % 90.7 % (38.7-73.9); Platelet Count 153 T/CUMM (130-400); Red Blood Count 2.84 MC/CUMM (3.8-5.5); Red Cell Distribution Width 17.8 % (9.3-17.3); White Blood Count 12.8 T/CUMM (4-12)
[2021-12-25 05:51] LABS: Calcium 8.1 MG/DL (8.5-10.1); Osmolality,Calculated 347.3 MOS/KG (273-304); Potassium 3.7 MMOL/L (3.5-5.1)
[2021-12-25 06:06] LABS: Lymphocytes 2 % (20-55); Platelet Estimate Normal; Segmented Neutrophils 94 % (50-85); Total Cells Counted 100
[2021-12-25 06:07] LABS: Hypochromia Slight; Microcytosis Slight
[2021-12-25] MEDS: INSULIN REGULAR 100 UNIT/ML SUBCUT SCH ×2 (07:36→14:34)
[2021-12-25] MEDS ORDERED: metOLazone 5 MG TABLET PO SCH (09:00)
[2021-12-25] MEDS: CHOLECALCIFEROL 1,000 UNIT TABLET PO SCH (10:19)
[2021-12-25] MEDS: ASCORBIC ACID 500 MG TABLET PO SCH (10:19)
[2021-12-25] MEDS: ZINC GLUCONATE 50 MG TABLET PO SCH (10:19)
[2021-12-25] MEDS: DOCUSATE SODIUM 100 MG/10 ML UDCUP PO SCH (10:19)
[2021-12-25] MEDS: ACETAMINOPHEN 325 MG TABLET PO PRN (10:20)
[2021-12-25] MEDS: CETIRIZINE 10 MG TABLET PO SCH (10:20)
[2021-12-25] MEDS: FUROSEMIDE IV SCH (10:20)
[2021-12-25] MEDS: SODIUM CHLORIDE 0.9% IV SCH (10:20)
[2021-12-25] MEDS: ONDANSETRON 4 MG/2 ML VIAL IV PRN (10:20)
[2021-12-25] MEDS: methylPREDNISolone SOD SUC 40 MG/1 ML VIAL IV SCH (10:20)
[2021-12-25] MEDS: PANTOPRAZOLE 40 MG VIAL IV SCH (10:21)
[2021-12-25] MEDS: FLUTICASONE 50 MCG NASAL SPRAY 16 GM BOTTLE BOTH NARES SCH (10:21)
[2021-12-25 12:45] VITALS: BP 135/37
[2021-12-27] MEDS ORDERED: FAT EMULSION 20% 250 ML IV SCH (14:00)
== END 2021-12-25 14:30 | disposition hospice, home (50) | DRG 177 ==
LOC: EDBD → SUATTDRO → EDUNIT# → N.ED 00:49 → SUATTDRO 06:38 → N.EDINP 06:38 → N.CC 12-10 02:07 → N.TELEN 12-14 21:46
PROVIDERS: ADMIT Internal Medicine; ATTEND Internal Medicine